=== PATIENT | female | born 1935 | race Caucasian/White ===

== ENCOUNTER 2016-12-24 13:19 | Inpatient (IN) | payer MEDICARE ==
[~2016-12-24] VITALS: Ht 149.9 cm; Wt 72.6 kg
[2016-12-24] MEDS ORDERED: ONDANSETRON PF 4 MG/2 ML VIAL. IV ONE (13:45)
[2016-12-24] MEDS ORDERED: KETOROLAC TROMETHAMINE 30 MG/ML INJ. IV ONE (13:45)
[2016-12-24] MEDS ORDERED: MORPHINE SULFATE 10 MG/ML VIAL. IV ONE (13:45)
[2016-12-24 14:03] LABS: BILIRUBIN,URINE NEGATIVE (NEG); GLUCOSE,URINE NEGATIVE (NEG); NITRITE,URINE NEGATIVE (NEG); PROTEIN,URINE NEGATIVE (NEG-TRACE); UROBILINOGEN,URINE 0.2 mg/dL (0.2 mg/dL)
--- NOTE | 2016-12-24 14:09 | PHYS DOC ---
Past Medical History Past Medical History: Other Past Surgical History: Hysterectomy Alcohol Use: None Drug Use: None Adult General Chief Complaint Chief Complaint: ABDOMINAL PAIN HPI HPI Patient is a 81 year old female presenting to the emergency department for evaluation of right flank pain radiating to right lower abdomen that started this morning and has caused her to vomit once. She is in severe pain and says she has never had kidney stones in the past but she does appear uncomfortable like a kidney stone. No fevers chills diarrhea constipation dysuria or hematuria. She thinks her urine is slightly cloudy. Review of Systems Review of Systems Constitutional: Denies fever or chills [] Eyes: Denies change in visual acuity, redness, or eye pain [] HENT: Denies nasal congestion or sore throat [] Respiratory: Denies cough or shortness of breath [] Cardiovascular: No additional information not addressed in HPI [] GI: + abdominal pain, nausea, vomiting. No bloody stools or diarrhea [] : Denies dysuria or hematuria [] Musculoskeletal: + back pain. No joint pain [] Integument: Denies rash or skin lesions [] Neurologic: Denies headache, focal weakness or sensory changes [] Current Medications Current Medications Current Medications Medications (Trade) Dose Ordered Sig/Nickie Start Time Stop Time Status Last Admin Dose Admin Ketorolac Tromethamine (Toradol) 15 mg 1X ONCE 12/24/16 13:45 12/24/16 13:55 DC 12/24/16 14:06 15 MG Morphine Sulfate 5 mg 1X ONCE 12/24/16 13:45 12/24/16 13:55 DC 12/24/16 14:05 5 MG Ondansetron HCl (Zofran) 8 mg 1X ONCE 12/24/16 13:45 12/24/16 13:55 DC 12/24/16 14:06 8 MG Allergies Allergies Allergies Coded Allergies Type Severity Reaction Last Updated Verified No Known Drug Allergies 12/24/16 No Physical Exam Physical Exam Constitutional: Well developed, well nourished, no acute distress, non-toxic appearance. [] HENT: Normocephalic, atraumatic, bilateral external ears normal, oropharynx moist, no oral exudates, nose normal. [] Eyes: PERRLA, EOMI, conjunctiva normal, no discharge. [] Neck: Normal range of motion, no tenderness, supple, no stridor. [] Cardiovascular:Heart rate regular rhythm, no murmur [] Lungs & Thorax: Bilateral breath sounds clear to auscultation [] Abdomen: Bowel sounds normal, soft, no tenderness, no masses, no pulsatile masses. [] Skin: Warm, dry, no erythema, no rash. [] Back: No tenderness, + R CVA tenderness. [] Extremities: No tenderness, no cyanosis, no clubbing, ROM intact, no edema. [] Neurologic: Alert and oriented X 3, normal motor function, normal sensory function, no focal deficits noted. [] Current Patient Data Vital Signs Vital Signs Date Time Temp Pulse Resp B/P (MAP) Pulse Ox O2 Delivery O2 Flow Rate FiO2 12/24/16 14:19 77 19 162/73 (102) 95 Room Air 12/24/16 13:47 98.4 98.4 Lab Values Laboratory Tests Test 12/24/16 13:45 12/24/16 14:15 Urine Color Yellow Urine Clarity Clear Urine pH 8.0 Urine Specific Starr 1.010 Urine Protein Negative mg/dL (NEG-TRACE) Urine Glucose (UA) Negative mg/dL (NEG) Urine Ketones (Stick) Negative mg/dL (NEG) Urine Blood Large (NEG) Urine Nitrite Negative (NEG) Urine Bilirubin Negative (NEG) Urine Urobilinogen Dipstick 0.2 mg/dL (0.2 mg/dL) Urine Leukocyte Esterase Large (NEG) Urine RBC 11-20 /HPF (0-2) Urine WBC 5-10 /HPF (0-4) Urine Squamous Epithelial Cells Occ /LPF Urine Bacteria Few /HPF (0-FEW) White Blood Count 4.4 x10^3/uL (4.0-11.0) Red Blood Count 4.96 x10^6/uL (3.50-5.40) Hemoglobin 15.0 g/dL (12.0-15.5) Hematocrit 43.0 % (36.0-47.0) Mean Corpuscular Volume 87 fL (79-100) Mean Corpuscular Hemoglobin 30 pg (25-35) Mean Corpuscular Hemoglobin Concent 35 g/dL (31-37) Red Cell Distribution Width 13.7 % (11.5-14.5) Platelet Count 151 x10^3/uL (140-400) Neutrophils (%) (Auto) 87 % (31-73) H Lymphocytes (%) (Auto) 9 % (24-48) L Monocytes (%) (Auto) 2 % (0-9) Eosinophils (%) (Auto) 2 % (0-3) Basophils (%) (Auto) 1 % (0-3) Neutrophils # (Auto) 3.8 x10^3uL (1.8-7.7) Lymphocytes # (Auto) 0.4 x10^3/uL (1.0-4.8) L Monocytes # (Auto) 0.1 x10^3/uL (0.0-1.1) Eosinophils # (Auto) 0.1 x10^3/uL (0.0-0.7) Basophils # (Auto) 0.0 x10^3/uL (0.0-0.2) Prothrombin Time 14.2 SEC (11.7-14.0) H Prothrombin Time INR 1.2 (0.8-1.1) H PTT 28 SEC (24-38) Sodium Level 138 mmol/L (136-145) Potassium Level 3.4 mmol/L (3.5-5.1) L Chloride Level 99 mmol/L (98-107) Carbon Dioxide Level 33 mmol/L (21-32) H Anion Gap 6 (6-14) Blood Urea Nitrogen 20 mg/dL (7-20) Creatinine 1.0 mg/dL (0.6-1.0) Estimated GFR (Cockcroft-Gault) 53.2 BUN/Creatinine Ratio 20 (6-20) Glucose Level 156 mg/dL (70-99) H Calcium Level 9.4 mg/dL (8.5-10.1) Magnesium Level 1.6 mg/dL (1.8-2.4) L Total Bilirubin 0.7 mg/dL (0.2-1.0) Aspartate Amino Transferase (AST) 21 U/L (15-37) Alanine Aminotransferase (ALT) 22 U/L (14-59) Alkaline Phosphatase 54 U/L (46-116) Total Protein 7.5 g/dL (6.4-8.2) Albumin 3.5 g/dL (3.4-5.0) Albumin/Globulin Ratio 0.9 (1.0-1.7) L Lipase 83 U/L (73-393) Laboratory Tests 12/24/16 14:15 Laboratory Tests 12/24/16 14:15 EKG EKG [] Radiology/Procedures Radiology/Procedures Examination: CT of the abdomen pelvis without contrast History: History of right flank pain Comparison: None available Technique: Axial CT images of the abdomen pelvis were performed without contrast. Coronal and sagittal reformats are performed. PQRS Compliance Statement: One or more of the following individualized dose reduction techniques were utilized for this examination: 1. Automated exposure control 2. Adjustment of the mA and/or kV according to patient size 3. Use of iterative reconstruction technique Findings: Small subpleural pulmonary nodules identified in the right middle lobe measuring up to 4 mm. There is a small subpleural nodule identified in the right lower lobe of the lung measuring 4 mm. Minimal bibasal lung atelectasis is identified. Small hiatal hernia is identified. No evidence of free air identified in the abdomen. The evaluation of the solid organs is limited due to lack of IV contrast. The evaluation of the bowel is limited lack of oral contrast. The visualized noncontrasted liver, spleen, adrenals grossly appears unremarkable. The gallbladder is mildly distended. Small gallstones identified within the gallbladder. The pancreas demonstrates mild fatty atrophic changes. There is minimal low density identified in the head of the pancreas probably atrophic changes cyst or cystic lesion, however evaluation is limited without IV contrast. Intrarenal collecting system calculi identified in the left kidney with the largest measuring 8 mm. Intrarenal collecting system calculus identified in the right kidney measuring 4 mm. Moderate right-sided hydronephrosis identified with mild hydroureter on the right. There is a 4 mm calculus identified in the distal right ureter best seen on series 2 image #166. The urinary bladder is mildly distended. There is mild prominence of right adnexa. The small bowel is nondilated. Feces and gas noted in the colon. Multiple colonic diverticula identified. The caliber of the aorta grossly appears unremarkable. Moderate degenerative changes throughout the lumbar spine. There is a small umbilical hernia containing loop of small bowel. Impression: 1. Moderate right-sided hydronephrosis and mild hydroureter identified with a 4 mm calculus identified in the distal right ureter. There is inflammatory fat stranding identified about the right renal pelvis likely due to back pressure or pyelonephritis. 2. Gallstones identified within the gallbladder. There is some hypodensity identified in the head of the pancreas probably atrophic changes however evaluation is limited without IV contrast underlying cyst or cystic lesion is not completely excluded. Follow-up nonemergent ultrasound can be considered. 3. Mild prominent appearing right adnexa. 4. Small umbilical hernia identified containing loop of small bowel. . DICTATED and SIGNED BY: LILLY INGRAM MD DATE: 12/24/16 1412 Course & Med Decision Making Course & Med Decision Making Patient's pain much improved after initial treatment however she is still having some pain and is very uncomfortable going home she is afraid she'll get dizzy and fall or she will be able to control her pain. The urologist return from their conference tomorrow. I do not think that she will need intervention at this point however will admit for pain control for now. Dragon Disclaimer Dragon Disclaimer This electronic medical record was generated, in whole or in part, using a voice recognition dictation system. Departure Departure Impression: Primary Impression: Right ureteral stone Additional Impression: Intractable pain Disposition: ADMITTED INPATIENT Admitting Physician: Other (REUSCH) Condition: STABLE Referrals: NOAH GLOVER Jr, MD (PCP) Problem Qualifiers EBENEZER WHYTE DO December 24, 2016 14:09
[2016-12-24 14:19] LABS: BACTERIA,URINE FEW /HPF (0-FEW); SQUAMOUS EPITHELIAL CELL,UR OCC /LPF
--- NOTE | 2016-12-24 14:25 | RAD ---
Examination: CT of the abdomen pelvis without contrast History: History of right flank pain Comparison: None available Technique: Axial CT images of the abdomen pelvis were performed without contrast. Coronal and sagittal reformats are performed. PQRS Compliance Statement: One or more of the following individualized dose reduction techniques were utilized for this examination: 1. Automated exposure control 2. Adjustment of the mA and/or kV according to patient size 3. Use of iterative reconstruction technique Findings: Small subpleural pulmonary nodules identified in the right middle lobe measuring up to 4 mm. There is a small subpleural nodule identified in the right lower lobe of the lung measuring 4 mm. Minimal bibasal lung atelectasis is identified. Small hiatal hernia is identified. No evidence of free air identified in the abdomen. The evaluation of the solid organs is limited due to lack of IV contrast. The evaluation of the bowel is limited lack of oral contrast. The visualized noncontrasted liver, spleen, adrenals grossly appears unremarkable. The gallbladder is mildly distended. Small gallstones identified within the gallbladder. The pancreas demonstrates mild fatty atrophic changes. There is minimal low density identified in the head of the pancreas probably atrophic changes cyst or cystic lesion, however evaluation is limited without IV contrast. Intrarenal collecting system calculi identified in the left kidney with the largest measuring 8 mm. Intrarenal collecting system calculus identified in the right kidney measuring 4 mm. Moderate right-sided hydronephrosis identified with mild hydroureter on the right. There is a 4 mm calculus identified in the distal right ureter best seen on series 2 image #166. The urinary bladder is mildly distended. There is mild prominence of right adnexa. The small bowel is nondilated. Feces and gas noted in the colon. Multiple colonic diverticula identified. The caliber of the aorta grossly appears unremarkable. Moderate degenerative changes throughout the lumbar spine. There is a small umbilical hernia containing loop of small bowel. Impression: 1. Moderate right-sided hydronephrosis and mild hydroureter identified with a 4 mm calculus identified in the distal right ureter. There is inflammatory fat stranding identified about the right renal pelvis likely due to back pressure or pyelonephritis. 2. Gallstones identified within the gallbladder. There is some hypodensity identified in the head of the pancreas probably atrophic changes however evaluation is limited without IV contrast underlying cyst or cystic lesion is not completely excluded. Follow-up nonemergent ultrasound can be considered. 3. Mild prominent appearing right adnexa. 4. Small umbilical hernia identified containing loop of small bowel. .
[2016-12-24 14:30] LABS: CALCIUM 9.4 mg/dL (8.5-10.1); GFR 53.2; POTASSIUM 3.4 mmol/L (3.5-5.1)
[2016-12-24 14:32] LABS: BASO % 1 % (0-3); EOS % 2 % (0-3); INR 1.2 (0.8-1.1); LYMPH # 0.4 x10^3/uL (1.0-4.8); LYMPH % 9 % (24-48); MEAN CORPUSCULAR HEMOGLOBIN 30 pg (25-35); MEAN CORPUSCULAR HGB CONC 35 g/dL (31-37); MEAN CORPUSCULAR VOLUME 87 fL (79-100); MONO % 2 % (0-9); NEUT % 87 % (31-73); PLATELET COUNT 151 x10^3/uL (140-400); PROTHROMBIN TIME PATIENT 14.2 SEC (11.7-14.0); RED BLOOD COUNT 4.96 x10^6/uL (3.50-5.40); RED CELL DISTRIBUTION WIDTH 13.7 % (11.5-14.5); WHITE BLOOD COUNT 4.4 x10^3/uL (4.0-11.0)
[2016-12-24 14:36] LABS: ALBUMIN 3.5 g/dL (3.4-5.0); ALBUMIN/GLOBULIN RATIO 0.9 (1.0-1.7); MAGNESIUM 1.6 mg/dL (1.8-2.4); TOTAL BILIRUBIN 0.7 mg/dL (0.2-1.0); TOTAL PROTEIN 7.5 g/dL (6.4-8.2)
[2016-12-24] MEDS ORDERED: ONDANSETRON PF 4 MG/2 ML VIAL. IV PRN (15:00)
[2016-12-24] MEDS ORDERED: fentaNYL PF VIAL 100 MCG/2 ML VIAL IV PRN (15:00)
--- NOTE | 2016-12-24 16:56 | PDOC ---
PROGRESS NOTES Subjective Subjective Pt. with 4 mm right distal stone Objective Objective Vital Signs Date Time Temp Pulse Resp B/P (MAP) Pulse Ox O2 Delivery O2 Flow Rate FiO2 12/24/16 16:02 80 19 116/60 (78) 95 Nasal Cannula 2.0 12/24/16 13:47 98.4 98.4 Physical Exam Physical Exam flomax abs strain urine Plan Plan of Care 4 mm right distal stone flomax, abs, strain urine Possible intervention tomorrow if pain recurrs significantly Problems Medical Problems: (1) Intractable pain Status: Acute (2) Right ureteral stone Status: Acute Comment Review of Relevant I have reviewed the following items jewell (where applicable) has been applied. Labs Laboratory Tests Test 12/24/16 13:45 12/24/16 14:15 Urine Color Yellow Urine Clarity Clear Urine pH 8.0 Urine Specific Gile 1.010 Urine Protein Negative mg/dL (NEG-TRACE) Urine Glucose (UA) Negative mg/dL (NEG) Urine Ketones (Stick) Negative mg/dL (NEG) Urine Blood Large (NEG) Urine Nitrite Negative (NEG) Urine Bilirubin Negative (NEG) Urine Urobilinogen Dipstick 0.2 mg/dL (0.2 mg/dL) Urine Leukocyte Esterase Large (NEG) Urine RBC 11-20 /HPF (0-2) Urine WBC 5-10 /HPF (0-4) Urine Squamous Epithelial Cells Occ /LPF Urine Bacteria Few /HPF (0-FEW) White Blood Count 4.4 x10^3/uL (4.0-11.0) Red Blood Count 4.96 x10^6/uL (3.50-5.40) Hemoglobin 15.0 g/dL (12.0-15.5) Hematocrit 43.0 % (36.0-47.0) Mean Corpuscular Volume 87 fL (79-100) Mean Corpuscular Hemoglobin 30 pg (25-35) Mean Corpuscular Hemoglobin Concent 35 g/dL (31-37) Red Cell Distribution Width 13.7 % (11.5-14.5) Platelet Count 151 x10^3/uL (140-400) Neutrophils (%) (Auto) 87 % (31-73) Lymphocytes (%) (Auto) 9 % (24-48) Monocytes (%) (Auto) 2 % (0-9) Eosinophils (%) (Auto) 2 % (0-3) Basophils (%) (Auto) 1 % (0-3) Neutrophils # (Auto) 3.8 x10^3uL (1.8-7.7) Lymphocytes # (Auto) 0.4 x10^3/uL (1.0-4.8) Monocytes # (Auto) 0.1 x10^3/uL (0.0-1.1) Eosinophils # (Auto) 0.1 x10^3/uL (0.0-0.7) Basophils # (Auto) 0.0 x10^3/uL (0.0-0.2) Prothrombin Time 14.2 SEC (11.7-14.0) Prothromb Time International Ratio 1.2 (0.8-1.1) Activated Partial Thromboplast Time 28 SEC (24-38) Sodium Level 138 mmol/L (136-145) Potassium Level 3.4 mmol/L (3.5-5.1) Chloride Level 99 mmol/L (98-107) Carbon Dioxide Level 33 mmol/L (21-32) Anion Gap 6 (6-14) Blood Urea Nitrogen 20 mg/dL (7-20) Creatinine 1.0 mg/dL (0.6-1.0) Estimated GFR (Cockcroft-Gault) 53.2 BUN/Creatinine Ratio 20 (6-20) Glucose Level 156 mg/dL (70-99) Calcium Level 9.4 mg/dL (8.5-10.1) Magnesium Level 1.6 mg/dL (1.8-2.4) Total Bilirubin 0.7 mg/dL (0.2-1.0) Aspartate Amino Transf (AST/SGOT) 21 U/L (15-37) Alanine Aminotransferase (ALT/SGPT) 22 U/L (14-59) Alkaline Phosphatase 54 U/L (46-116) Total Protein 7.5 g/dL (6.4-8.2) Albumin 3.5 g/dL (3.4-5.0) Albumin/Globulin Ratio 0.9 (1.0-1.7) Lipase 83 U/L (73-393) Laboratory Tests Test 12/24/16 13:45 12/24/16 14:15 Urine Color Yellow Urine Clarity Clear Urine pH 8.0 Urine Specific Gile 1.010 Urine Protein Negative mg/dL (NEG-TRACE) Urine Glucose (UA) Negative mg/dL (NEG) Urine Ketones (Stick) Negative mg/dL (NEG) Urine Blood Large (NEG) Urine Nitrite Negative (NEG) Urine Bilirubin Negative (NEG) Urine Urobilinogen Dipstick 0.2 mg/dL (0.2 mg/dL) Urine Leukocyte Esterase Large (NEG) Urine RBC 11-20 /HPF (0-2) Urine WBC 5-10 /HPF (0-4) Urine Squamous Epithelial Cells Occ /LPF Urine Bacteria Few /HPF (0-FEW) White Blood Count 4.4 x10^3/uL (4.0-11.0) Red Blood Count 4.96 x10^6/uL (3.50-5.40) Hemoglobin 15.0 g/dL (12.0-15.5) Hematocrit 43.0 % (36.0-47.0) Mean Corpuscular Volume 87 fL (79-100) Mean Corpuscular Hemoglobin 30 pg (25-35) Mean Corpuscular Hemoglobin Concent 35 g/dL (31-37) Red Cell Distribution Width 13.7 % (11.5-14.5) Platelet Count 151 x10^3/uL (140-400) Neutrophils (%) (Auto) 87 % (31-73) Lymphocytes (%) (Auto) 9 % (24-48) Monocytes (%) (Auto) 2 % (0-9) Eosinophils (%) (Auto) 2 % (0-3) Basophils (%) (Auto) 1 % (0-3) Neutrophils # (Auto) 3.8 x10^3uL (1.8-7.7) Lymphocytes # (Auto) 0.4 x10^3/uL (1.0-4.8) Monocytes # (Auto) 0.1 x10^3/uL (0.0-1.1) Eosinophils # (Auto) 0.1 x10^3/uL (0.0-0.7) Basophils # (Auto) 0.0 x10^3/uL (0.0-0.2) Prothrombin Time 14.2 SEC (11.7-14.0) Prothromb Time International Ratio 1.2 (0.8-1.1) Activated Partial Thromboplast Time 28 SEC (24-38) Sodium Level 138 mmol/L (136-145) Potassium Level 3.4 mmol/L (3.5-5.1) Chloride Level 99 mmol/L (98-107) Carbon Dioxide Level 33 mmol/L (21-32) Anion Gap 6 (6-14) Blood Urea Nitrogen 20 mg/dL (7-20) Creatinine 1.0 mg/dL (0.6-1.0) Estimated GFR (Cockcroft-Gault) 53.2 BUN/Creatinine Ratio 20 (6-20) Glucose Level 156 mg/dL (70-99) Calcium Level 9.4 mg/dL (8.5-10.1) Magnesium Level 1.6 mg/dL (1.8-2.4) Total Bilirubin 0.7 mg/dL (0.2-1.0) Aspartate Amino Transf (AST/SGOT) 21 U/L (15-37) Alanine Aminotransferase (ALT/SGPT) 22 U/L (14-59) Alkaline Phosphatase 54 U/L (46-116) Total Protein 7.5 g/dL (6.4-8.2) Albumin 3.5 g/dL (3.4-5.0) Albumin/Globulin Ratio 0.9 (1.0-1.7) Lipase 83 U/L (73-393) Medications Current Medications Ondansetron HCl (Zofran) 8 mg 1X ONCE IV Last administered on 12/24/16 14:06 ; Start 12/24/16 at 13:45; Stop 12/24/16 at 13:55; Status DC Morphine Sulfate 5 mg 1X ONCE IV Last administered on 12/24/16 14:05; Start 12/24/16 at 13:45; Stop 12/24/16 at 13:55; Status DC Ketorolac Tromethamine (Toradol) 15 mg 1X ONCE IV Last administered on 14:06; Start 12/24/16 at 13:45; Stop 12/24/16 at 13:55; Status DC Ondansetron HCl (Zofran) 4 mg PRN Q8HRS PRN IV NAUSEA/VOMITING; Start 12/24/16 at 15:00; Stop 12/25/16 at 14:59 Fentanyl Citrate (Fentanyl 2ml Vial) 50 mcg PRN Q2HR PRN IV PAIN; Start at 15:00; Stop 12/25/16 at 14:59 Ceftriaxone Sodium 1 gm/ Sodium Chloride 50 ml @ 100 mls/hr Q24H IV ; Start at 15:00 Ceftriaxone Sodium 50 ml @ 100 mls/hr 1X ONCE IV Last administered on t 15:15; Start 12/24/16 at 15:00; Stop 12/24/16 at 15:29; Status DC Vitals/I & O Vital Sign - Last 24 Hours 12/24/16 12/24/16 12/24/16 12/24/16 13:47 14:05 14:19 15:12 Temp 98.4 98.4 Pulse 81 77 Resp 17 19 19 19 B/P (MAP) 148/90 (109) 162/73 (102) 118/63 (81) Pulse Ox 98 94 95 94 O2 Delivery Room Air Room Air Room Air Nasal Cannula O2 Flow Rate 2.0 12/24/16 16:02 Pulse 80 Resp 19 B/P (MAP) 116/60 (78) Pulse Ox 95 O2 Delivery Nasal Cannula O2 Flow Rate 2.0 ISABELLA HAMMOND MD December 24, 2016 16:56
[2016-12-24] MEDS: TAMSULOSIN 0.4 MG CAP.ER.24H. PO SCH (17:09)
[2016-12-24 17:30] VITALS: BP 100/43
[2016-12-24 17:47] VITALS: BP 100/43
[2016-12-24 18:01] VITALS: BP 100/43
[2016-12-24] MEDS ORDERED: METF500T4 PO (18:52)
[2016-12-24] MEDS ORDERED: CARV12.52 PO (18:58)
[2016-12-24] MEDS ORDERED: PRAV40TA2 PO (18:58)
[2016-12-24] MEDS ORDERED: ASPI81TA2 PO (18:58)
[2016-12-24] MEDS ORDERED: AMLO5TAB2 PO (18:58)
[2016-12-24] MEDS ORDERED: LOSA1TAB17 PO (18:58)
[2016-12-24 19:54] VITALS: BP 107/46
[2016-12-24] MEDS ORDERED: MORPHINE SULFATE 2 MG/ML DISP.SYRIN. IV PRN (20:00)
[2016-12-24] MEDS: CARVEDILOL 12.5 MG TABLET. PO SCH (20:24)
[2016-12-24] MEDS: ATORVASTATIN CALCIUM 10 MG TABLET. PO SCH (20:25)
--- NOTE | 2016-12-24 21:29 | HP ---
ADMIT DATE: 12/24/2016 CHIEF COMPLAINT: Flank pain. HISTORY OF PRESENT ILLNESS: The patient is an 81-year-old woman who presented to the Emergency Room with right flank pain. She relates that this pain actually started earlier this morning at about 11 o'clock all of a sudden, never had a pain like this before. She, however, relates that she actually had anterior pelvic/groin pains bilaterally in the past couple of weeks for which she saw her PCP and was told that she may have diverticulitis and if pain got worse, she should present to the Emergency Room. On further questioning, the patient denies having noticed any hematuria, but pain early in the morning was so bad that she actually vomited. She denies any fevers, chills, or other symptoms. PAST MEDICAL HISTORY: Diabetes, hypertension, hyperlipidemia. FAMILY HISTORY: No history of urinary stones. SOCIAL HISTORY: She is . No toxic habits. She lives by herself. ALLERGIES: No known drug allergies. MEDICATIONS: MAR reconciled with home medications. REVIEW OF SYSTEMS: Essentially only positive for flank pain, which now is much improved. Rest of organ system review is benign. PHYSICAL EXAMINATION: VITAL SIGNS: From today show a blood pressure of 100/43, heart rate of 85, respiratory rate of 16. She is afebrile. GENERAL: This is an 81-year-old obese, but frail appearing woman, alert and oriented, in no acute distress. HEENT: Shows no scleral icterus. NECK: Supple. LUNGS: Clear bilaterally. HEART: Regular rate and rhythm. ABDOMEN: Has positive bowel sounds, soft, nontender, no tenderness in the flank to palpation or auscultation. BACK: Appears kyphotic. EXTREMITIES: Show no edema. SKIN: Warm, soft and dry without any rash. LABORATORY DATA: CBC with a WBC of 4.4, hemoglobin 15, platelets of 151. Chemistries with a BUN and creatinine of 20 and 1, potassium of 3.4, glucose at 156, magnesium 1.6. Urine with 11-20 wbc and 5-10 rbc. IMAGING DATA: CT of the abdomen and pelvis reveals intrarenal collecting system calculus identified in the right kidney measuring about 4 mm, moderate right-sided hydronephrosis identified with mild hydroureter on the right, 4-mm calculus in the distal right ureter. ASSESSMENT AND PLAN: The patient is an 81-year-old with an obstructing 4-mm stone in the right distal ureter. Her symptoms now have significantly improved and hopefully the stone actually has passed on its own. Dr. Alexandra from Urology has been consulted. We will observe her overnight. Start her on IV fluids. A MAC will have to be replaced. For her diabetes, we will continue home medications and insulin sliding scale. Blood pressure currently is well controlled as well. We will continue home regimen. Hold Lovenox/heparin for deep vein thrombosis prophylaxis for now, SCDs should be sufficient. ESTEFANY CH MD DR: MARY/nts JOB#: [id number] / [id number] CHRIS
--- NOTE | 2016-12-24 21:56 | ACF ---
Admission Forms Criteria RENAL COLIC AND KIDNEY STONES Clinical Indications for Admission to Inpatient Care ( Place 'X' for any and all applicable criteria): Admission is indicated for ANY ONE of the following (1)(2)(3)(4): [X ]I. Inpatient admission required rather than observation care (Also use Renal Colic and Kidney Stones: Observation Care Criteria as appropriate) because of ANY ONE of the following: [X ]a) Severe pain requiring acute inpatient management [ ]b) Urinary tract infection identified [ ]c) Vomiting that is severe or persistent [ ]d) IV fluid required rather than oral rehydration to replace significant ongoing (eg, for greater than 24 hours) losses (greater than 200 mL/hr or 3 L/m2 per day) [ ]e) Percutaneous or open drainage (eg, abscess, biliary tract) procedures [ ]f) Other condition, treatment or monitoring requiring inpatient admission [ ]II. Impending acute renal failure [ ]III. Bilateral obstruction [ ]IV. Single kidney with obstruction [ ]V. Transplanted kidney with obstruction [ ]. Possible open surgical procedure needed (eg, pyonephrosis, stone removal not amendable to other means) [ ]VII. Hemodynamic instability Extended stay beyond goal length of stay may be needed for(2)(3)(31): [ ]a) Failed initial stone removal (32) [ ]b) Pyonephrosis [ ]c) Obstructive uropathy with urinary tract infection [ ]d) Procedure complications [ ]e) Comorbidities (22) The original [facility] content created by [employer] has been revised. The portions of the content which have been revised are identified through the use of italic text or in bold, and [facility] has neither reviewed nor approved the modified material. All other unmodified content is copyright [facility]. Please see references footnoted in the original [facility] [employer] edition 2016 Admission Criteria Met?: Yes CARLOS BERNARD December 24, 2016 21:56
[2016-12-24 23:35] VITALS: BP 111/83
[2016-12-25] VITALS (13 sets, daily range): BP systolic 82–124; BP diastolic 37–59
[2016-12-25 04:24] LABS: BASO % 0 % (0-3); EOS % 0 % (0-3); HEMATOCRIT 39.5 % (36.0-47.0); HEMOGLOBIN 13.5 g/dL (12.0-15.5); LYMPH # 0.6 x10^3/uL (1.0-4.8); LYMPH % 2 % (24-48); MEAN CORPUSCULAR HEMOGLOBIN 30 pg (25-35); MEAN CORPUSCULAR HGB CONC 34 g/dL (31-37); MEAN CORPUSCULAR VOLUME 87 fL (79-100); MONO % 7 % (0-9); NEUT % 90 % (31-73); PLATELET COUNT 99 x10^3/uL (140-400); RED BLOOD COUNT 4.53 x10^6/uL (3.50-5.40); RED CELL DISTRIBUTION WIDTH 13.7 % (11.5-14.5); WHITE BLOOD COUNT 24.8 x10^3/uL (4.0-11.0)
[2016-12-25 04:50] LABS: CALCIUM 9.6 mg/dL (8.5-10.1); CREATININE 1.7 mg/dL (0.6-1.0); GFR 28.8; POTASSIUM 3.4 mmol/L (3.5-5.1)
[2016-12-25 06:06] LABS: PLT ESTIMATE DECREASED (ADEQUATE)
[2016-12-25] MEDS ORDERED: IOHEXOL 300 MG/ML 50 ML VIAL. ONE (06:36)
[2016-12-25] MEDS ORDERED: LIDOCAINE 2% JELLY 6ML IN APPLICATOR. ONE (06:36)
[2016-12-25] MEDS ORDERED: fentaNYL PF VIAL 100 MCG/2 ML VIAL IV PRN ×2 (07:00)
[2016-12-25] MEDS ORDERED: HYDROmorphone 2 MG/ML VIAL IV PRN (07:00)
[2016-12-25] MEDS ORDERED: LIDOCAINE 1% 1 ML SYRINGE. ID PRN (07:00)
[2016-12-25] MEDS ORDERED: MORPHINE SULFATE 2 MG/ML DISP.SYRIN. IV PRN (07:00)
[2016-12-25] MEDS ORDERED: IV RINGERS,LACTATED 1000ML 1,000 ML IV SCH (07:00)
[2016-12-25] MEDS ORDERED: ONDANSETRON PF 4 MG/2 ML VIAL. IV PRN (07:00)
[2016-12-25] MEDS ORDERED: PROCHLORPERAZINE 10 MG/2 ML VIAL. IV PRN (07:00)
[2016-12-25] MEDS: metFORMIN 500 MG TABLET PO SCH ×2 (08:00→17:13)
[2016-12-25] MEDS: CARVEDILOL 12.5 MG TABLET. PO SCH ×2 (08:00→17:00)
--- NOTE | 2016-12-25 08:40 | CONS ---
DATE OF CONSULTATION: 12/24/2016 The patient's room will be in 658. HISTORY OF PRESENT ILLNESS: The patient is a very pleasant 81-year-old white female who had onset of right flank abdominal pain this morning at 11:00 a.m. The patient was seen in the Emergency Room, found to have a 4 mm right distal ureteral stone with some hydronephrosis. The patient with no prior history of any stones. The patient's white count is 4.4, creatinine is 1.0. Urine showed 11-20 red cells, 5-10 white cells, few bacteria, nitrite negative. The patient is afebrile. Vital signs stable. PAST MEDICAL HISTORY: Significant for asthma, hypertension, diabetes. The patient had prior shoulder replacement, hysterectomy and back surgery in the past. On physical exam, the patient with some right-sided flank and abdominal tenderness, although it is much less than before. No left-sided abdominal pain or left-sided CVA tenderness. I talked with the patient concerning her 4 mm right distal ureteral stone. We talked about the options, alternatives, benefits, risks and possible complications of medical expulsive therapy versus surgical intervention with cystoscopy, right retrograde pyelogram, right ureteral stent placement. The patient is feeling better now and she is going to be admitted to the medicine service for observation. Recommend strains her urine, Flomax, antibiotics. She was ____ started on Rocephin and then get a KUB on her first thing in the morning, tomorrow morning and then keep her n.p.o. past midnight on the possibility, she wishes to proceed with surgical intervention with cystoscopy, right retrograde pyelogram, and right ureteral stent placement. I certainly appreciate being allowed to participate in this patient's care. ISABELLA HAMMOND MD DR: HUMBERTO/radha JOB#: [id number] / [id number]
[2016-12-25] MEDS ORDERED: IV DEXTROSE 5%-LACT RINGERS 1,000 ML IV SCH (08:45)
--- NOTE | 2016-12-25 08:46 | PDOC ---
PROGRESS NOTES Subjective Subjective Pt. with no pain this morning Objective Objective Vital Signs Date Time Temp Pulse Resp B/P (MAP) Pulse Ox O2 Delivery O2 Flow Rate FiO2 12/25/16 08:00 81 95/47 12/25/16 07:12 98.9 16 97 Nasal Cannula 2.5 98.9 Intake and Output 12/25/16 07:00 Intake Total 100 ml Balance 100 ml Intake Oral 50 ml IV Total 50 ml # Voids 2 Physical Exam Physical Exam abd soft, no-tender WBC-24.8 Cr. 1.7 Plan Plan of Care I discussed with the pt. her elevated WBC and elevated Cr. Pt. on rocephin I discussed with the pt. the options, alternatives, benefits, risks, and possible complications of observation vs. intervention with cystoscopy, right retrograde pyelogram and possible right ureteral stent placement. Pt. understands and wishes to proceed with operation. Will proceed accordingly. Problems Medical Problems: (1) Intractable pain Status: Acute (2) Right ureteral stone Status: Acute Comment Review of Relevant I have reviewed the following items jewlel (where applicable) has been applied. Labs Laboratory Tests Test 12/24/16 13:45 12/24/16 14:15 12/25/16 03:45 Urine Color Yellow Urine Clarity Clear Urine pH 8.0 Urine Specific [place] 1.010 Urine Protein Negative mg/dL (NEG-TRACE) Urine Glucose (UA) Negative mg/dL (NEG) Urine Ketones (Stick) Negative mg/dL (NEG) Urine Blood Large (NEG) Urine Nitrite Negative (NEG) Urine Bilirubin Negative (NEG) Urine Urobilinogen Dipstick 0.2 mg/dL (0.2 mg/dL) Urine Leukocyte Esterase Large (NEG) Urine RBC 11-20 /HPF (0-2) Urine WBC 5-10 /HPF (0-4) Urine Squamous Epithelial Cells Occ /LPF Urine Bacteria Few /HPF (0-FEW) White Blood Count 4.4 x10^3/uL (4.0-11.0) 24.8 x10^3/uL (4.0-11.0) Red Blood Count 4.96 x10^6/uL (3.50-5.40) 4.53 x10^6/uL (3.50-5.40) Hemoglobin 15.0 g/dL (12.0-15.5) 13.5 g/dL (12.0-15.5) Hematocrit 43.0 % (36.0-47.0) 39.5 % (36.0-47.0) Mean Corpuscular Volume 87 fL (79-100) 87 fL (79-100) Mean Corpuscular Hemoglobin 30 pg (25-35) 30 pg (25-35) Mean Corpuscular Hemoglobin Concent 35 g/dL (31-37) 34 g/dL (31-37) Red Cell Distribution Width 13.7 % (11.5-14.5) 13.7 % (11.5-14.5) Platelet Count 151 x10^3/uL (140-400) 99 x10^3/uL (140-400) Neutrophils (%) (Auto) 87 % (31-73) 90 % (31-73) Lymphocytes (%) (Auto) 9 % (24-48) 2 % (24-48) Monocytes (%) (Auto) 2 % (0-9) 7 % (0-9) Eosinophils (%) (Auto) 2 % (0-3) 0 % (0-3) Basophils (%) (Auto) 1 % (0-3) 0 % (0-3) Neutrophils # (Auto) 3.8 x10^3uL (1.8-7.7) 22.3 x10^3uL (1.8-7.7) Lymphocytes # (Auto) 0.4 x10^3/uL (1.0-4.8) 0.6 x10^3/uL (1.0-4.8) Monocytes # (Auto) 0.1 x10^3/uL (0.0-1.1) 1.8 x10^3/uL (0.0-1.1) Eosinophils # (Auto) 0.1 x10^3/uL (0.0-0.7) 0.0 x10^3/uL (0.0-0.7) Basophils # (Auto) 0.0 x10^3/uL (0.0-0.2) 0.0 x10^3/uL (0.0-0.2) Prothrombin Time 14.2 SEC (11.7-14.0) Prothromb Time International Ratio 1.2 (0.8-1.1) Activated Partial Thromboplast Time 28 SEC (24-38) Sodium Level 138 mmol/L (136-145) 138 mmol/L (136-145) Potassium Level 3.4 mmol/L (3.5-5.1) 3.4 mmol/L (3.5-5.1) Chloride Level 99 mmol/L (98-107) 100 mmol/L (98-107) Carbon Dioxide Level 33 mmol/L (21-32) 28 mmol/L (21-32) Anion Gap 6 (6-14) 10 (6-14) Blood Urea Nitrogen 20 mg/dL (7-20) 34 mg/dL (7-20) Creatinine 1.0 mg/dL (0.6-1.0) 1.7 mg/dL (0.6-1.0) Estimated GFR (Cockcroft-Gault) 53.2 28.8 BUN/Creatinine Ratio 20 (6-20) Glucose Level 156 mg/dL (70-99) 166 mg/dL (70-99) Calcium Level 9.4 mg/dL (8.5-10.1) 9.6 mg/dL (8.5-10.1) Magnesium Level 1.6 mg/dL (1.8-2.4) Total Bilirubin 0.7 mg/dL (0.2-1.0) Aspartate Amino Transf (AST/SGOT) 21 U/L (15-37) Alanine Aminotransferase (ALT/SGPT) 22 U/L (14-59) Alkaline Phosphatase 54 U/L (46-116) Total Protein 7.5 g/dL (6.4-8.2) Albumin 3.5 g/dL (3.4-5.0) Albumin/Globulin Ratio 0.9 (1.0-1.7) Lipase 83 U/L (73-393) Segmented Neutrophils % 53 % (35-66) Band Neutrophils % 39 % (0-9) Lymphocytes % 1 % (24-48) Monocytes % 7 % (0-10) Platelet Estimate Decreased (ADEQUATE) Laboratory Tests Test 12/24/16 13:45 12/24/16 14:15 12/25/16 03:45 Urine Color Yellow Urine Clarity Clear Urine pH 8.0 Urine Specific [place] 1.010 Urine Protein Negative mg/dL (NEG-TRACE) Urine Glucose (UA) Negative mg/dL (NEG) Urine Ketones (Stick) Negative mg/dL (NEG) Urine Blood Large (NEG) Urine Nitrite Negative (NEG) Urine Bilirubin Negative (NEG) Urine Urobilinogen Dipstick 0.2 mg/dL (0.2 mg/dL) Urine Leukocyte Esterase Large (NEG) Urine RBC 11-20 /HPF (0-2) Urine WBC 5-10 /HPF (0-4) Urine Squamous Epithelial Cells Occ /LPF Urine Bacteria Few /HPF (0-FEW) White Blood Count 4.4 x10^3/uL (4.0-11.0) 24.8 x10^3/uL (4.0-11.0) Red Blood Count 4.96 x10^6/uL (3.50-5.40) 4.53 x10^6/uL (3.50-5.40) Hemoglobin 15.0 g/dL (12.0-15.5) 13.5 g/dL (12.0-15.5) Hematocrit 43.0 % (36.0-47.0) 39.5 % (36.0-47.0) Mean Corpuscular Volume 87 fL (79-100) 87 fL (79-100) Mean Corpuscular Hemoglobin 30 pg (25-35) 30 pg (25-35) Mean Corpuscular Hemoglobin Concent 35 g/dL (31-37) 34 g/dL (31-37) Red Cell Distribution Width 13.7 % (11.5-14.5) 13.7 % (11.5-14.5) Platelet Count 151 x10^3/uL (140-400) 99 x10^3/uL (140-400) Neutrophils (%) (Auto) 87 % (31-73) 90 % (31-73) Lymphocytes (%) (Auto) 9 % (24-48) 2 % (24-48) Monocytes (%) (Auto) 2 % (0-9) 7 % (0-9) Eosinophils (%) (Auto) 2 % (0-3) 0 % (0-3) Basophils (%) (Auto) 1 % (0-3) 0 % (0-3) Neutrophils # (Auto) 3.8 x10^3uL (1.8-7.7) 22.3 x10^3uL (1.8-7.7) Lymphocytes # (Auto) 0.4 x10^3/uL (1.0-4.8) 0.6 x10^3/uL (1.0-4.8) Monocytes # (Auto) 0.1 x10^3/uL (0.0-1.1) 1.8 x10^3/uL (0.0-1.1) Eosinophils # (Auto) 0.1 x10^3/uL (0.0-0.7) 0.0 x10^3/uL (0.0-0.7) Basophils # (Auto) 0.0 x10^3/uL (0.0-0.2) 0.0 x10^3/uL (0.0-0.2) Prothrombin Time 14.2 SEC (11.7-14.0) Prothromb Time International Ratio 1.2 (0.8-1.1) Activated Partial Thromboplast Time 28 SEC (24-38) Sodium Level 138 mmol/L (136-145) 138 mmol/L (136-145) Potassium Level 3.4 mmol/L (3.5-5.1) 3.4 mmol/L (3.5-5.1) Chloride Level 99 mmol/L (98-107) 100 mmol/L (98-107) Carbon Dioxide Level 33 mmol/L (21-32) 28 mmol/L (21-32) Anion Gap 6 (6-14) 10 (6-14) Blood Urea Nitrogen 20 mg/dL (7-20) 34 mg/dL (7-20) Creatinine 1.0 mg/dL (0.6-1.0) 1.7 mg/dL (0.6-1.0) Estimated GFR (Cockcroft-Gault) 53.2 28.8 BUN/Creatinine Ratio 20 (6-20) Glucose Level 156 mg/dL (70-99) 166 mg/dL (70-99) Calcium Level 9.4 mg/dL (8.5-10.1) 9.6 mg/dL (8.5-10.1) Magnesium Level 1.6 mg/dL (1.8-2.4) Total Bilirubin 0.7 mg/dL (0.2-1.0) Aspartate Amino Transf (AST/SGOT) 21 U/L (15-37) Alanine Aminotransferase (ALT/SGPT) 22 U/L (14-59) Alkaline Phosphatase 54 U/L (46-116) Total Protein 7.5 g/dL (6.4-8.2) Albumin 3.5 g/dL (3.4-5.0) Albumin/Globulin Ratio 0.9 (1.0-1.7) Lipase 83 U/L (73-393) Segmented Neutrophils % 53 % (35-66) Band Neutrophils % 39 % (0-9) Lymphocytes % 1 % (24-48) Monocytes % 7 % (0-10) Platelet Estimate Decreased (ADEQUATE) Medications Current Medications Ondansetron HCl (Zofran) 8 mg 1X ONCE IV Last administered on 12/24/16 14:06 ; Start 12/24/16 at 13:45; Stop 12/24/16 at 13:55; Status DC Morphine Sulfate 5 mg 1X ONCE IV Last administered on 12/24/16 14:05; Start 12/24/16 at 13:45; Stop 12/24/16 at 13:55; Status DC Ketorolac Tromethamine (Toradol) 15 mg 1X ONCE IV Last administered on 14:06; Start 12/24/16 at 13:45; Stop 12/24/16 at 13:55; Status DC Ondansetron HCl (Zofran) 4 mg PRN Q8HRS PRN IV NAUSEA/VOMITING; Start 12/24/16 at 15:00; Stop 12/25/16 at 14:59 Fentanyl Citrate (Fentanyl 2ml Vial) 50 mcg PRN Q2HR PRN IV PAIN; Start at 15:00; Stop 12/24/16 at 19:43; Status DC Ceftriaxone Sodium 1 gm/ Sodium Chloride 50 ml @ 100 mls/hr Q24H IV ; Start at 15:00; Stop 12/25/16 at 15:00; Status DC Ceftriaxone Sodium 50 ml @ 100 mls/hr 1X ONCE IV Last administered on 15:15; Start 12/24/16 at 15:00; Stop 12/24/16 at 15:29; Status DC Tamsulosin HCl (Flomax) 0.4 mg DAILY PO Last administered on 12/24/16 17:09; Start 12/24/16 at 17:00 Ondansetron HCl (Zofran) 4 mg PRN Q6HRS PRN IV NAUSEA/VOMITING; Start 12/25/16 at 07:00; Stop 12/25/16 at 23:00 Fentanyl Citrate (Fentanyl 2ml Vial) 25 mcg PRN Q5MIN PRN IV MILD PAIN; Start 12/25/16 at 07:00; Stop 12/25/16 at 07:00; Status DC Fentanyl Citrate (Fentanyl 2ml Vial) 50 mcg PRN Q5MIN PRN IV MODERATE PAIN; Start 12/25/16 at 07:00; Stop 12/25/16 at 07:00; Status DC Morphine Sulfate 1 mg PRN Q10MIN PRN IV SEVERE PAIN; Start 12/25/16 at 07:00; Stop 12/25/16 at 07:00; Status DC Ringer's Solution 1,000 ml @ 0 mls/hr Q0M IV ; Start 12/25/16 at 07:00; Stop at 18:59 Lidocaine HCl 2 ml PRN 1X PRN ID PRIOR TO IV START; Start 12/25/16 at 07:00; Stop 12/26/16 at 06:59 Hydromorphone HCl (Dilaudid) 0.5 mg PRN Q10MIN PRN IV SEV PAIN, Second choice; Start 12/25/16 at 07:00; Stop 12/25/16 at 07:00; Status DC Prochlorperazine Edisylate (Compazine) 5 mg PACU PRN PRN IV NAUSEA, MRX1; Start 12/25/16 at 07:00; Stop 12/25/16 at 23:00 Amlodipine Besylate (Norvasc) 5 mg DAILY PO ; Start 12/25/16 at 09:00 Aspirin (Children'S Aspirin) 81 mg DAILY PO ; Start 12/25/16 at 09:00 Carvedilol (Coreg) 12.5 mg BIDWMEALS PO ; Start 12/24/16 at 21:00 Metformin HCl (Glucophage) 500 mg BIDWMEALS PO ; Start 12/25/16 at 08:00 Losartan Potassium (Cozaar) 100 mg DAILY PO ; Start 12/25/16 at 09:00 Atorvastatin Calcium (Lipitor) 10 mg QHS PO Last administered on 12/24/16t 20: 25; Start 12/24/16 at 21:00 Hydrochlorothiazide (Hydrodiuril) 25 mg DAILY PO ; Start 12/25/16 at 09:00 Morphine Sulfate 1 mg PRN Q1HR PRN IV SEVERE PAIN Last administered on 21:28; Start 12/24/16 at 20:00 Lidocaine HCl (Glydo (Lidocaine) Jelly) 6 joey STK-MED ONCE .ROUTE ; Start at 06:36; Stop 12/25/16 at 06:37; Status DC Iohexol (Omnipaque 300 Mg/ml) 50 ml STK-MED ONCE .ROUTE ; Start 12/25/16 at 06: 36; Stop 12/25/16 at 06:37; Status DC Lidocaine HCl (Glydo (Lidocaine) Jelly) 6 joey STK-MED ONCE .ROUTE ; Start at 06:36; Stop 12/25/16 at 06:37; Status DC Active Scripts Active Reported Carvedilol 12.5 Mg Tablet 1 Tab PO BID Aspirin 81 Mg Tab.chew 1 Tab PO DAILY Losartan-Hctz 100-25 Mg Tab (Losartan/Hydrochlorothiazide) 1 Each Tablet 1 Tab PO DAILY Amlodipine Besylate 5 Mg Tablet 5 Mg PO DAILY Pravastatin Sodium 40 Mg Tablet 1 Tab PO QHS Metformin Hcl 500 Mg Tablet 500 Mg PO BIDWMEALS Vitals/I & O Vital Sign - Last 24 Hours 12/24/16 12/24/16 12/24/16 12/24/16 13:47 14:05 14:19 15:12 Temp 98.4 98.4 Pulse 81 77 Resp 19 B/P (MAP) 148/90 (109) 162/73 (102) 118/63 (81) Pulse Ox 98 94 95 94 O2 Delivery Room Air Room Air Room Air Nasal Cannula O2 Flow Rate 2.0 12/24/16 12/24/16 12/24/16 12/24/16 16:02 17:12 17:30 17:47 Temp 98.3 98.3 98.3 98.3 Pulse 80 87 85 85 Resp 16 B/P (MAP) 116/60 (78) 100/60 (73) 100/43 (62) 100/43 (62) Pulse Ox 95 95 91 91 O2 Delivery Nasal Cannula Nasal Cannula Nasal Cannula Nasal Cannula O2 Flow Rate 2.0 2.0 2.5 2.5 12/24/16 12/24/16 12/24/16 12/24/16 17:56 18:01 19:54 20:00 Temp 98.3 99.3 98.3 99.3 Pulse 85 79 Resp 16 B/P (MAP) 100/43 (62) 107/46 (66) Pulse Ox 91 92 O2 Delivery Nasal Cannula Nasal Cannula Room Air O2 Flow Rate 2.5 2.5 2.0 12/24/16 12/25/16 12/25/16 12/25/16 23:35 03:22 07:12 08:00 Temp 99.3 98.7 98.9 99.3 98.7 98.9 Pulse 104 74 81 81 Resp 16 18 16 B/P (MAP) 111/83 (92) 89/37 (54) 95/47 (63) 95/47 Pulse Ox 93 95 97 O2 Delivery Nasal Cannula Nasal Cannula Nasal Cannula O2 Flow Rate 2.0 2.0 2.5 Intake and Output 12/24/16 12/24/16 12/25/16 15:00 23:00 07:00 Intake Total 50 ml 50 ml Balance 50 ml 50 ml ISABELLA HAMMOND MD December 25, 2016 08:46
--- NOTE | 2016-12-25 08:47 | RAD ---
KUB, 12/25/2016: History: Right ureteral stone The renal regions are largely obscured by overlying bowel content. The patient's known intrarenal calculi are not clearly seen. There are bilateral lower pelvic calcifications, predominantly due to phleboliths. The small distal right ureteral calculus seen on the recent CT study cannot be clearly differentiated from these phleboliths radiographically. The abdominal gas pattern is unremarkable. There is no evidence of organomegaly. Moderate degenerative changes are present in the spine. IMPRESSION: No acute abdominal abnormality is detected.
[2016-12-25] MEDS: TAMSULOSIN 0.4 MG CAP.ER.24H. PO SCH (09:00)
[2016-12-25] MEDS: ASPIRIN CHEWABLE 81 MG TABLET. PO SCH (09:00)
[2016-12-25] MEDS: LOSARTAN POTASSIUM 50 MG TABLET. PO SCH (09:00)
[2016-12-25] MEDS ORDERED: hydroCHLOROthiazide 25 MG TABLET PO SCH (09:00)
[2016-12-25] MEDS ORDERED: amLODIPine BESYLATE 5 MG TABLET PO SCH (09:00)
[2016-12-25] MEDS ORDERED: PHENYLEPHRINE in 0.9% NACL PF 1 MG/10 ML DISP.SYRIN. IV ONE (09:46)
--- NOTE | 2016-12-25 10:18 | PDOC4 ---
Operative Note Operative Note pre-op dx-right ureteral stone procedure-cystoscopy, right retrograde pyelogram, right ureteral stent placement surgeon-franny colbert-general Pt. to PACU in stable condition ISABELLA HAMMOND MD December 25, 2016 10:18
--- NOTE | 2016-12-25 11:24 | PDOC ---
PROGRESS NOTES Chief Complaint Chief Complaint 1. Intraductal collecting systme kidney/ureteral stone 2. HYPOTENSION 3. Geriatric, fall risk 4. UTI 5. SIRS POA (leukocytosis etc) NO SEPSIS History of Present Illness History of Present Illness HAving cysto and stent placement AT recovery room BP low side CHart reviewed, BP running low On Anti hypertensives CT: I have personally reveiwed 1. Moderate right-sided hydronephrosis and mild hydroureter identified with a 4 mm calculus identified in the distal right ureter. There is inflammatory fat stranding identified about the right renal pelvis likely due to back pressure or pyelonephritis. 2. Gallstones identified within the gallbladder. There is some hypodensity identified in the head of the pancreas probably atrophic changes however evaluation is limited without IV contrast underlying cyst or cystic lesion is not completely excluded. Follow-up nonemergent ultrasound can be considered. 3. Mild prominent appearing right adnexa. 4. Small umbilical hernia identified containing loop of small bowel. PLAN: Dc HCTZ and norvasc Shift LR to NS 100cc.hr REcheck WBC etc CBC anais AM PAin meds Flomax Dw RN Vitals Vitals Vital Signs Date Time Temp Pulse Resp B/P (MAP) Pulse Ox O2 Delivery O2 Flow Rate FiO2 12/25/16 11:02 73 16 93/45 96 Nasal Cannula 2 12/25/16 10:47 99.1 99.1 Labs LABS Laboratory Tests Test 12/24/16 13:45 12/24/16 14:15 12/25/16 03:45 12/25/16 09:18 Urine Color Yellow Urine Clarity Clear Urine pH 8.0 Urine Specific Beaver 1.010 Urine Protein Negative mg/dL (NEG-TRACE) Urine Glucose (UA) Negative mg/dL (NEG) Urine Ketones (Stick) Negative mg/dL (NEG) Urine Blood Large (NEG) Urine Nitrite Negative (NEG) Urine Bilirubin Negative (NEG) Urine Urobilinogen Dipstick 0.2 mg/dL (0.2 mg/dL) Urine Leukocyte Esterase Large (NEG) Urine RBC 11-20 /HPF (0-2) Urine WBC 5-10 /HPF (0-4) Urine Squamous Epithelial Cells Occ /LPF Urine Bacteria Few /HPF (0-FEW) White Blood Count 4.4 x10^3/uL (4.0-11.0) 24.8 x10^3/uL (4.0-11.0) Red Blood Count 4.96 x10^6/uL (3.50-5.40) 4.53 x10^6/uL (3.50-5.40) Hemoglobin 15.0 g/dL (12.0-15.5) 13.5 g/dL (12.0-15.5) Hematocrit 43.0 % (36.0-47.0) 39.5 % (36.0-47.0) Mean Corpuscular Volume 87 fL (79-100) 87 fL (79-100) Mean Corpuscular Hemoglobin 30 pg (25-35) 30 pg (25-35) Mean Corpuscular Hemoglobin Concent 35 g/dL (31-37) 34 g/dL (31-37) Red Cell Distribution Width 13.7 % (11.5-14.5) 13.7 % (11.5-14.5) Platelet Count 151 x10^3/uL (140-400) 99 x10^3/uL (140-400) Neutrophils (%) (Auto) 87 % (31-73) 90 % (31-73) Lymphocytes (%) (Auto) 9 % (24-48) 2 % (24-48) Monocytes (%) (Auto) 2 % (0-9) 7 % (0-9) Eosinophils (%) (Auto) 2 % (0-3) 0 % (0-3) Basophils (%) (Auto) 1 % (0-3) 0 % (0-3) Neutrophils # (Auto) 3.8 x10^3uL (1.8-7.7) 22.3 x10^3uL (1.8-7.7) Lymphocytes # (Auto) 0.4 x10^3/uL (1.0-4.8) 0.6 x10^3/uL (1.0-4.8) Monocytes # (Auto) 0.1 x10^3/uL (0.0-1.1) 1.8 x10^3/uL (0.0-1.1) Eosinophils # (Auto) 0.1 x10^3/uL (0.0-0.7) 0.0 x10^3/uL (0.0-0.7) Basophils # (Auto) 0.0 x10^3/uL (0.0-0.2) 0.0 x10^3/uL (0.0-0.2) Prothrombin Time 14.2 SEC (11.7-14.0) Prothromb Time International Ratio 1.2 (0.8-1.1) Activated Partial Thromboplast Time 28 SEC (24-38) Sodium Level 138 mmol/L (136-145) 138 mmol/L (136-145) Potassium Level 3.4 mmol/L (3.5-5.1) 3.4 mmol/L (3.5-5.1) Chloride Level 99 mmol/L (98-107) 100 mmol/L (98-107) Carbon Dioxide Level 33 mmol/L (21-32) 28 mmol/L (21-32) Anion Gap 6 (6-14) 10 (6-14) Blood Urea Nitrogen 20 mg/dL (7-20) 34 mg/dL (7-20) Creatinine 1.0 mg/dL (0.6-1.0) 1.7 mg/dL (0.6-1.0) Estimated GFR (Cockcroft-Gault) 53.2 28.8 BUN/Creatinine Ratio 20 (6-20) Glucose Level 156 mg/dL (70-99) 166 mg/dL (70-99) Calcium Level 9.4 mg/dL (8.5-10.1) 9.6 mg/dL (8.5-10.1) Magnesium Level 1.6 mg/dL (1.8-2.4) Total Bilirubin 0.7 mg/dL (0.2-1.0) Aspartate Amino Transf (AST/SGOT) 21 U/L (15-37) Alanine Aminotransferase (ALT/SGPT) 22 U/L (14-59) Alkaline Phosphatase 54 U/L (46-116) Total Protein 7.5 g/dL (6.4-8.2) Albumin 3.5 g/dL (3.4-5.0) Albumin/Globulin Ratio 0.9 (1.0-1.7) Lipase 83 U/L (73-393) Segmented Neutrophils % 53 % (35-66) Band Neutrophils % 39 % (0-9) Lymphocytes % 1 % (24-48) Monocytes % 7 % (0-10) Platelet Estimate Decreased (ADEQUATE) Glucose (Fingerstick) 152 mg/dL (70-99) Test 12/25/16 10:37 Glucose (Fingerstick) 145 mg/dL (70-99) Assessment and Plan Assessmemt and Plan Problems Medical Problems: (1) Intractable pain Status: Acute (2) Right ureteral stone Status: Acute Problems: Comment Review of Relevant I have reviewed the following items jewell (where applicable) has been applied. Labs Laboratory Tests Test 12/24/16 13:45 12/24/16 14:15 12/25/16 03:45 12/25/16 09:18 Urine Color Yellow Urine Clarity Clear Urine pH 8.0 Urine Specific Beaver 1.010 Urine Protein Negative mg/dL (NEG-TRACE) Urine Glucose (UA) Negative mg/dL (NEG) Urine Ketones (Stick) Negative mg/dL (NEG) Urine Blood Large (NEG) Urine Nitrite Negative (NEG) Urine Bilirubin Negative (NEG) Urine Urobilinogen Dipstick 0.2 mg/dL (0.2 mg/dL) Urine Leukocyte Esterase Large (NEG) Urine RBC 11-20 /HPF (0-2) Urine WBC 5-10 /HPF (0-4) Urine Squamous Epithelial Cells Occ /LPF Urine Bacteria Few /HPF (0-FEW) White Blood Count 4.4 x10^3/uL (4.0-11.0) 24.8 x10^3/uL (4.0-11.0) Red Blood Count 4.96 x10^6/uL (3.50-5.40) 4.53 x10^6/uL (3.50-5.40) Hemoglobin 15.0 g/dL (12.0-15.5) 13.5 g/dL (12.0-15.5) Hematocrit 43.0 % (36.0-47.0) 39.5 % (36.0-47.0) Mean Corpuscular Volume 87 fL (79-100) 87 fL (79-100) Mean Corpuscular Hemoglobin 30 pg (25-35) 30 pg (25-35) Mean Corpuscular Hemoglobin Concent 35 g/dL (31-37) 34 g/dL (31-37) Red Cell Distribution Width 13.7 % (11.5-14.5) 13.7 % (11.5-14.5) Platelet Count 151 x10^3/uL (140-400) 99 x10^3/uL (140-400) Neutrophils (%) (Auto) 87 % (31-73) 90 % (31-73) Lymphocytes (%) (Auto) 9 % (24-48) 2 % (24-48) Monocytes (%) (Auto) 2 % (0-9) 7 % (0-9) Eosinophils (%) (Auto) 2 % (0-3) 0 % (0-3) Basophils (%) (Auto) 1 % (0-3) 0 % (0-3) Neutrophils # (Auto) 3.8 x10^3uL (1.8-7.7) 22.3 x10^3uL (1.8-7.7) Lymphocytes # (Auto) 0.4 x10^3/uL (1.0-4.8) 0.6 x10^3/uL (1.0-4.8) Monocytes # (Auto) 0.1 x10^3/uL (0.0-1.1) 1.8 x10^3/uL (0.0-1.1) Eosinophils # (Auto) 0.1 x10^3/uL (0.0-0.7) 0.0 x10^3/uL (0.0-0.7) Basophils # (Auto) 0.0 x10^3/uL (0.0-0.2) 0.0 x10^3/uL (0.0-0.2) Prothrombin Time 14.2 SEC (11.7-14.0) Prothromb Time International Ratio 1.2 (0.8-1.1) Activated Partial Thromboplast Time 28 SEC (24-38) Sodium Level 138 mmol/L (136-145) 138 mmol/L (136-145) Potassium Level 3.4 mmol/L (3.5-5.1) 3.4 mmol/L (3.5-5.1) Chloride Level 99 mmol/L (98-107) 100 mmol/L (98-107) Carbon Dioxide Level 33 mmol/L (21-32) 28 mmol/L (21-32) Anion Gap 6 (6-14) 10 (6-14) Blood Urea Nitrogen 20 mg/dL (7-20) 34 mg/dL (7-20) Creatinine 1.0 mg/dL (0.6-1.0) 1.7 mg/dL (0.6-1.0) Estimated GFR (Cockcroft-Gault) 53.2 28.8 BUN/Creatinine Ratio 20 (6-20) Glucose Level 156 mg/dL (70-99) 166 mg/dL (70-99) Calcium Level 9.4 mg/dL (8.5-10.1) 9.6 mg/dL (8.5-10.1) Magnesium Level 1.6 mg/dL (1.8-2.4) Total Bilirubin 0.7 mg/dL (0.2-1.0) Aspartate Amino Transf (AST/SGOT) 21 U/L (15-37) Alanine Aminotransferase (ALT/SGPT) 22 U/L (14-59) Alkaline Phosphatase 54 U/L (46-116) Total Protein 7.5 g/dL (6.4-8.2) Albumin 3.5 g/dL (3.4-5.0) Albumin/Globulin Ratio 0.9 (1.0-1.7) Lipase 83 U/L (73-393) Segmented Neutrophils % 53 % (35-66) Band Neutrophils % 39 % (0-9) Lymphocytes % 1 % (24-48) Monocytes % 7 % (0-10) Platelet Estimate Decreased (ADEQUATE) Glucose (Fingerstick) 152 mg/dL (70-99) Test 12/25/16 10:37 Glucose (Fingerstick) 145 mg/dL (70-99) Laboratory Tests Test 12/24/16 13:45 12/24/16 14:15 12/25/16 03:45 12/25/16 09:18 Urine Color Yellow Urine Clarity Clear Urine pH 8.0 Urine Specific Beaver 1.010 Urine Protein Negative mg/dL (NEG-TRACE) Urine Glucose (UA) Negative mg/dL (NEG) Urine Ketones (Stick) Negative mg/dL (NEG) Urine Blood Large (NEG) Urine Nitrite Negative (NEG) Urine Bilirubin Negative (NEG) Urine Urobilinogen Dipstick 0.2 mg/dL (0.2 mg/dL) Urine Leukocyte Esterase Large (NEG) Urine RBC 11-20 /HPF (0-2) Urine WBC 5-10 /HPF (0-4) Urine Squamous Epithelial Cells Occ /LPF Urine Bacteria Few /HPF (0-FEW) White Blood Count 4.4 x10^3/uL (4.0-11.0) 24.8 x10^3/uL (4.0-11.0) Red Blood Count 4.96 x10^6/uL (3.50-5.40) 4.53 x10^6/uL (3.50-5.40) Hemoglobin 15.0 g/dL (12.0-15.5) 13.5 g/dL (12.0-15.5) Hematocrit 43.0 % (36.0-47.0) 39.5 % (36.0-47.0) Mean Corpuscular Volume 87 fL (79-100) 87 fL (79-100) Mean Corpuscular Hemoglobin 30 pg (25-35) 30 pg (25-35) Mean Corpuscular Hemoglobin Concent 35 g/dL (31-37) 34 g/dL (31-37) Red Cell Distribution Width 13.7 % (11.5-14.5) 13.7 % (11.5-14.5) Platelet Count 151 x10^3/uL (140-400) 99 x10^3/uL (140-400) Neutrophils (%) (Auto) 87 % (31-73) 90 % (31-73) Lymphocytes (%) (Auto) 9 % (24-48) 2 % (24-48) Monocytes (%) (Auto) 2 % (0-9) 7 % (0-9) Eosinophils (%) (Auto) 2 % (0-3) 0 % (0-3) Basophils (%) (Auto) 1 % (0-3) 0 % (0-3) Neutrophils # (Auto) 3.8 x10^3uL (1.8-7.7) 22.3 x10^3uL (1.8-7.7) Lymphocytes # (Auto) 0.4 x10^3/uL (1.0-4.8) 0.6 x10^3/uL (1.0-4.8) Monocytes # (Auto) 0.1 x10^3/uL (0.0-1.1) 1.8 x10^3/uL (0.0-1.1) Eosinophils # (Auto) 0.1 x10^3/uL (0.0-0.7) 0.0 x10^3/uL (0.0-0.7) Basophils # (Auto) 0.0 x10^3/uL (0.0-0.2) 0.0 x10^3/uL (0.0-0.2) Prothrombin Time 14.2 SEC (11.7-14.0) Prothromb Time International Ratio 1.2 (0.8-1.1) Activated Partial Thromboplast Time 28 SEC (24-38) Sodium Level 138 mmol/L (136-145) 138 mmol/L (136-145) Potassium Level 3.4 mmol/L (3.5-5.1) 3.4 mmol/L (3.5-5.1) Chloride Level 99 mmol/L (98-107) 100 mmol/L (98-107) Carbon Dioxide Level 33 mmol/L (21-32) 28 mmol/L (21-32) Anion Gap 6 (6-14) 10 (6-14) Blood Urea Nitrogen 20 mg/dL (7-20) 34 mg/dL (7-20) Creatinine 1.0 mg/dL (0.6-1.0) 1.7 mg/dL (0.6-1.0) Estimated GFR (Cockcroft-Gault) 53.2 28.8 BUN/Creatinine Ratio 20 (6-20) Glucose Level 156 mg/dL (70-99) 166 mg/dL (70-99) Calcium Level 9.4 mg/dL (8.5-10.1) 9.6 mg/dL (8.5-10.1) Magnesium Level 1.6 mg/dL (1.8-2.4) Total Bilirubin 0.7 mg/dL (0.2-1.0) Aspartate Amino Transf (AST/SGOT) 21 U/L (15-37) Alanine Aminotransferase (ALT/SGPT) 22 U/L (14-59) Alkaline Phosphatase 54 U/L (46-116) Total Protein 7.5 g/dL (6.4-8.2) Albumin 3.5 g/dL (3.4-5.0) Albumin/Globulin Ratio 0.9 (1.0-1.7) Lipase 83 U/L (73-393) Segmented Neutrophils % 53 % (35-66) Band Neutrophils % 39 % (0-9) Lymphocytes % 1 % (24-48) Monocytes % 7 % (0-10) Platelet Estimate Decreased (ADEQUATE) Glucose (Fingerstick) 152 mg/dL (70-99) Test 12/25/16 10:37 Glucose (Fingerstick) 145 mg/dL (70-99) Medications Current Medications Ondansetron HCl (Zofran) 8 mg 1X ONCE IV Last administered on 12/24/16 14:06 ; Start 12/24/16 at 13:45; Stop 12/24/16 at 13:55; Status DC Morphine Sulfate 5 mg 1X ONCE IV Last administered on 12/24/16 14:05; Start 12/24/16 at 13:45; Stop 12/24/16 at 13:55; Status DC Ketorolac Tromethamine (Toradol) 15 mg 1X ONCE IV Last administered on 14:06; Start 12/24/16 at 13:45; Stop 12/24/16 at 13:55; Status DC Ondansetron HCl (Zofran) 4 mg PRN Q8HRS PRN IV NAUSEA/VOMITING; Start 12/24/16 at 15:00; Stop 12/25/16 at 14:59 Fentanyl Citrate (Fentanyl 2ml Vial) 50 mcg PRN Q2HR PRN IV PAIN; Start at 15:00; Stop 12/24/16 at 19:43; Status DC Ceftriaxone Sodium 1 gm/ Sodium Chloride 50 ml @ 100 mls/hr Q24H IV ; Start at 15:00; Stop 12/25/16 at 15:00; Status DC Ceftriaxone Sodium 50 ml @ 100 mls/hr 1X ONCE IV Last administered on 15:15; Start 12/24/16 at 15:00; Stop 12/24/16 at 15:29; Status DC Tamsulosin HCl (Flomax) 0.4 mg DAILY PO Last administered on 12/24/16 17:09; Start 12/24/16 at 17:00 Ondansetron HCl (Zofran) 4 mg PRN Q6HRS PRN IV NAUSEA/VOMITING; Start 12/25/16 at 07:00; Stop 12/25/16 at 23:00 Fentanyl Citrate (Fentanyl 2ml Vial) 25 mcg PRN Q5MIN PRN IV MILD PAIN; Start 12/25/16 at 07:00; Stop 12/25/16 at 07:00; Status DC Fentanyl Citrate (Fentanyl 2ml Vial) 50 mcg PRN Q5MIN PRN IV MODERATE PAIN; Start 12/25/16 at 07:00; Stop 12/25/16 at 07:00; Status DC Morphine Sulfate 1 mg PRN Q10MIN PRN IV SEVERE PAIN; Start 12/25/16 at 07:00; Stop 12/25/16 at 07:00; Status DC Ringer's Solution 1,000 ml @ 0 mls/hr Q0M IV ; Start 12/25/16 at 07:00; Stop at 18:59 Lidocaine HCl 2 ml PRN 1X PRN ID PRIOR TO IV START; Start 12/25/16 at 07:00; Stop 12/26/16 at 06:59 Hydromorphone HCl (Dilaudid) 0.5 mg PRN Q10MIN PRN IV SEV PAIN, Second choice; Start 12/25/16 at 07:00; Stop 12/25/16 at 07:00; Status DC Prochlorperazine Edisylate (Compazine) 5 mg PACU PRN PRN IV NAUSEA, MRX1; Start 12/25/16 at 07:00; Stop 12/25/16 at 23:00 Amlodipine Besylate (Norvasc) 5 mg DAILY PO ; Start 12/25/16 at 09:00; Stop at 09:20; Status DC Aspirin (Children'S Aspirin) 81 mg DAILY PO ; Start 12/25/16 at 09:00 Carvedilol (Coreg) 12.5 mg BIDWMEALS PO ; Start 12/24/16 at 21:00 Metformin HCl (Glucophage) 500 mg BIDWMEALS PO ; Start 12/25/16 at 08:00 Losartan Potassium (Cozaar) 100 mg DAILY PO ; Start 12/25/16 at 09:00 Atorvastatin Calcium (Lipitor) 10 mg QHS PO Last administered on 12/24/16t 20: 25; Start 12/24/16 at 21:00 Hydrochlorothiazide (Hydrodiuril) 25 mg DAILY PO ; Start 12/25/16 at 09:00; Stop 12/25/16 at 09:20; Status DC Morphine Sulfate 1 mg PRN Q1HR PRN IV SEVERE PAIN Last administered on 21:28; Start 12/24/16 at 20:00 Lidocaine HCl (Glydo (Lidocaine) Jelly) 6 joey STK-MED ONCE .ROUTE Last administered on 12/25/16 10:08; Start 12/25/16 at 06:36; Stop 12/25/16 at 06:37 ; Status DC Iohexol (Omnipaque 300 Mg/ml) 50 ml STK-MED ONCE .ROUTE Last administered on 09:56; Start 12/25/16 at 06:36; Stop 12/25/16 at 06:37; Status DC Lidocaine HCl (Glydo (Lidocaine) Jelly) 6 joey STK-MED ONCE .ROUTE Last administered on 12/25/16 10:08; Start 12/25/16 at 06:36; Stop 12/25/16 at 06:37 ; Status DC Dextrose/Lactated Ringer's 1,000 ml @ 100 mls/hr Q10H IV ; Start 12/25/16 at 08 :45 Levofloxacin/ Dextrose 50 ml @ 50 mls/hr 1X ONCE IV Last administered on 09:43; Start 12/25/16 at 09:15; Stop 12/25/16 at 10:14; Status DC Phenylephrine HCl 1 mg STK-MED ONCE IV ; Start 12/25/16 at 09:46; Stop 12/25/16 at 09:47; Status DC Active Scripts Active Reported Carvedilol 12.5 Mg Tablet 1 Tab PO BID Aspirin 81 Mg Tab.chew 1 Tab PO DAILY Losartan-Hctz 100-25 Mg Tab (Losartan/Hydrochlorothiazide) 1 Each Tablet 1 Tab PO DAILY Amlodipine Besylate 5 Mg Tablet 5 Mg PO DAILY Pravastatin Sodium 40 Mg Tablet 1 Tab PO QHS Metformin Hcl 500 Mg Tablet 500 Mg PO BIDWMEALS Vitals/I & O Vital Sign - Last 24 Hours 12/24/16 12/24/16 12/24/16 12/24/16 13:47 14:05 14:19 15:12 Temp 98.4 98.4 Pulse 81 77 Resp 17 19 B/P (MAP) 148/90 (109) 162/73 (102) 118/63 (81) Pulse Ox 98 94 95 94 O2 Delivery Room Air Room Air Room Air Nasal Cannula O2 Flow Rate 2.0 12/24/16 12/24/16 12/24/16 12/24/16 16:02 17:12 17:30 17:47 Temp 98.3 98.3 98.3 98.3 Pulse 80 87 85 85 Resp 19 19 16 16 B/P (MAP) 116/60 (78) 100/60 (73) 100/43 (62) 100/43 (62) Pulse Ox 95 95 91 91 O2 Delivery Nasal Cannula Nasal Cannula Nasal Cannula Nasal Cannula O2 Flow Rate 2.0 2.0 2.5 2.5 12/24/16 12/24/16 12/24/16 12/24/16 17:56 18:01 19:54 20:00 Temp 98.3 99.3 98.3 99.3 Pulse 85 79 Resp 16 B/P (MAP) 100/43 (62) 107/46 (66) Pulse Ox 91 92 O2 Delivery Nasal Cannula Nasal Cannula Room Air O2 Flow Rate 2.5 2.5 2.0 12/24/16 12/25/16 12/25/16 12/25/16 23:35 03:22 07:12 08:00 Temp 99.3 98.7 98.9 99.3 98.7 98.9 Pulse 104 74 81 81 Resp 16 18 16 B/P (MAP) 111/83 (92) 89/37 (54) 95/47 (63) 95/47 Pulse Ox 93 95 97 O2 Delivery Nasal Cannula Nasal Cannula Nasal Cannula O2 Flow Rate 2.0 2.0 2.5 12/25/16 12/25/16 12/25/16 12/25/16 09:27 10:17 10:30 10:32 Temp 97.2 97.6 97.2 97.6 Pulse 83 80 74 Resp 12 16 18 B/P (MAP) 94/53 97/53 107/57 Pulse Ox 91 95 96 O2 Delivery Room Air Nasal Cannula Nasal Cannula Nasal Cannula O2 Flow Rate 2 2 2 12/25/16 12/25/16 10:47 11:02 Temp 99.1 99.1 Pulse 80 73 Resp 16 16 B/P (MAP) 89/54 93/45 Pulse Ox 94 96 O2 Delivery Nasal Cannula Nasal Cannula O2 Flow Rate 2 2 Intake and Output 12/24/16 12/24/16 12/25/16 15:00 23:00 07:00 Intake Total 50 ml 50 ml Balance 50 ml 50 ml VERÓNICA FERNANDEZ MD December 25, 2016 11:24
[2016-12-25] MEDS: IV NORMAL SALINE 1000ML BAG 1,000 ML IV SCH ×2 (12:19→21:30)
--- NOTE | 2016-12-25 14:34 | OP ---
DATE OF SURGERY: 12/25/2016 OPERATION: Cystoscopy, right retrograde pyelogram, right ureteral stent placement. SURGEON: Isabella Alexandra MD ANESTHESIA: General. PREOPERATIVE DIAGNOSIS: Right ureteral stone and urinary tract infection. POSTOPERATIVE DIAGNOSIS: Right ureteral stone and urinary tract infection. INDICATIONS: The patient is a very pleasant 81-year-old white female who is admitted with right renal colic and have 4-mm right distal ureteral stone. The patient initially had normal white cell count and normal creatinine and did have some leukocyte esterase positive and ____ negative. She was started on Rocephin and white count increased up to 24,000 and creatinine increased to 1.7. Although the patient was became asymptomatic of her pain. I discussed with the patient the options, alternatives, benefits, risks and possible complications of cystoscopy, right retrograde pyelogram, and right ureteral stent placement to get her unobstructed and ____ urinary tract infection. She understands this and does wish to proceed with the operation. DESCRIPTION OF PROCEDURE: After obtaining informed consent, the patient was taken to operating room. After an excellent general anesthetic, the patient was placed in a dorsolithotomy position. Groin was prepped and draped in sterile fashion. The patient was already on IV antibiotics and was given an additional Levaquin IV preoperatively. Panendoscopy and cystoscopy were then performed with the 30 and 70-degree lens and the 21-Mohawk cystoscope sheath. Bladder was entered and inspected. The patient noted to have cystitis changes in the bladder. Both ureteral orifices were identified and found to be grossly patent. No bladder tumors or bladder stones were identified. Following this, right retrograde pyelogram was performed. The patient noted to have filling defect in the right distal ureter consistent with the patient's stone but no significant dilation of the ureter above that level. Following this, floppy-tipped ZIPwire was able to be passed up the right ureteral orifice past the stone up the right ureter to the right kidney and then a 5-Mohawk Pollack catheter, passed up the ZIPwire to the right kidney and some urine was obtained for culture. The urine from the right kidney appeared clear yellow in color. There was mild dilation of the right renal pelvis and calices. Following this, the ZIPwire was then replaced and the Pollack catheter removed and following this, a 4.8 x 22 double-J stent was then passed up the ZIPwire, placing one curl in the right kidney and another curl in the bladder. and the ZIPwire removed. Stent position was checked by fluoroscopy and direct vision, found to be in good position. Following this, bladder was then drained and the cystoscope was withdrawn from the patient. The patient tolerated the procedure very well, was taken to recovery room in stable condition. Plan will be as to treat her urinary tract infection and then once that has been completely treated, then undergo definitive therapy of the patient's right distal ureteral stone. ISABELLA ALEXANDRA MD DR: HUMBERTO/radha JOB#: [id number] / [id number]
[2016-12-25] MEDS: ATORVASTATIN CALCIUM 10 MG TABLET. PO SCH (21:53)
[2016-12-26 03:00] VITALS: BP 129/65
[2016-12-26 05:47] LABS: BASO % 0 % (0-3); EOS % 0 % (0-3); HEMATOCRIT 38.8 % (36.0-47.0); HEMOGLOBIN 13.3 g/dL (12.0-15.5); LYMPH # 0.9 x10^3/uL (1.0-4.8); LYMPH % 4 % (24-48); MEAN CORPUSCULAR HEMOGLOBIN 30 pg (25-35); MEAN CORPUSCULAR HGB CONC 34 g/dL (31-37); MEAN CORPUSCULAR VOLUME 87 fL (79-100); MONO % 6 % (0-9); NEUT % 91 % (31-73); PLATELET COUNT 99 x10^3/uL (140-400); RED BLOOD COUNT 4.47 x10^6/uL (3.50-5.40); RED CELL DISTRIBUTION WIDTH 13.7 % (11.5-14.5); WHITE BLOOD COUNT 26.1 x10^3/uL (4.0-11.0)
[2016-12-26 05:58] LABS: CALCIUM 9.1 mg/dL (8.5-10.1); CREATININE 1.2 mg/dL (0.6-1.0); GFR 43.1; POTASSIUM 3.2 mmol/L (3.5-5.1)
[2016-12-26 07:00] VITALS: BP 101/49
[2016-12-26] MEDS: IV NORMAL SALINE 1000ML BAG 1,000 ML IV SCH (07:30)
[2016-12-26] MEDS: MEROPENEM 500 MG in IV NORMAL SALINE 50ML 50 ML IV SCH ×3 (08:18→17:26)
--- NOTE | 2016-12-26 08:20 | PDOC ---
Infectious Disease Note ROS ROS Vital Sign Vital Signs Vital Signs Date Time Temp Pulse Resp B/P (MAP) Pulse Ox O2 Delivery O2 Flow Rate FiO2 12/26/16 07:00 98.1 63 18 101/49 (66) 95 Nasal Cannula 2.5 98.1 Labs Lab Laboratory Tests Test 12/25/16 09:18 12/25/16 10:37 12/26/16 04:40 Glucose (Fingerstick) 152 mg/dL (70-99) 145 mg/dL (70-99) White Blood Count 26.1 x10^3/uL (4.0-11.0) Red Blood Count 4.47 x10^6/uL (3.50-5.40) Hemoglobin 13.3 g/dL (12.0-15.5) Hematocrit 38.8 % (36.0-47.0) Mean Corpuscular Volume 87 fL (79-100) Mean Corpuscular Hemoglobin 30 pg (25-35) Mean Corpuscular Hemoglobin Concent 34 g/dL (31-37) Red Cell Distribution Width 13.7 % (11.5-14.5) Platelet Count 99 x10^3/uL (140-400) Neutrophils (%) (Auto) 91 % (31-73) Lymphocytes (%) (Auto) 4 % (24-48) Monocytes (%) (Auto) 6 % (0-9) Eosinophils (%) (Auto) 0 % (0-3) Basophils (%) (Auto) 0 % (0-3) Neutrophils # (Auto) 23.6 x10^3uL (1.8-7.7) Lymphocytes # (Auto) 0.9 x10^3/uL (1.0-4.8) Monocytes # (Auto) 1.5 x10^3/uL (0.0-1.1) Eosinophils # (Auto) 0.0 x10^3/uL (0.0-0.7) Basophils # (Auto) 0.0 x10^3/uL (0.0-0.2) Sodium Level 139 mmol/L (136-145) Potassium Level 3.2 mmol/L (3.5-5.1) Chloride Level 102 mmol/L (98-107) Carbon Dioxide Level 28 mmol/L (21-32) Anion Gap 9 (6-14) Blood Urea Nitrogen 44 mg/dL (7-20) Creatinine 1.2 mg/dL (0.6-1.0) Estimated GFR (Cockcroft-Gault) 43.1 Glucose Level 137 mg/dL (70-99) Calcium Level 9.1 mg/dL (8.5-10.1) Objective Assessment Proteus UTI - POA with likely pyelonephritis Leukocytosis - Sec to infection an d? post op - clinically she feels well S/p Cystoscopy, right retrograde pyelogram, right ureteral stent placement.12/25 GERD DM Lung nodules on CT Plan Plan of Care ID NOT SEE 12/25 WAS IN SURGERY. I did speak with Dr. Alexandra and she had received Rocephin and Levoflox preop 12/25 so I did not make any abx adjustments This am changed to Meropenem as WBC has increased D/w micro this am and Proteus is only resistant to nitrofurantoin and tetracycline. Will cont Meropenem to confirm results and be sure a second bacteria does not grow that may be resistant F/u labs/cults in am May benefit from Prontonix/Pepcid F/u Pulm nodules per primary Thank you # [id number] VICKY BAI MD December 26, 2016 08:20
[2016-12-26] MEDS: LOSARTAN POTASSIUM 50 MG TABLET. PO SCH (08:22)
[2016-12-26] MEDS: metFORMIN 500 MG TABLET PO SCH ×2 (08:22→17:25)
[2016-12-26] MEDS: ASPIRIN CHEWABLE 81 MG TABLET. PO SCH (08:22)
[2016-12-26] MEDS: CARVEDILOL 12.5 MG TABLET. PO SCH ×2 (08:23→17:25)
[2016-12-26] MEDS: TAMSULOSIN 0.4 MG CAP.ER.24H. PO SCH (08:23)
--- NOTE | 2016-12-26 10:10 | PDOC ---
PROGRESS NOTES Chief Complaint Chief Complaint 1. 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 HYPOTENSION, fluid responsive 3. Geriatric, fall risk 4. UTI 5. SIRS POA (leukocytosis etc) NO SEPSIS History of Present Illness History of Present Illness WBC higher Shifted to meropenem by ID today NO fevers Some bloody urine but clearing up NO abd pain CT chest shows incidental 4 mm pulm nodule Never smoker PLAN: Follow ID recs Follow urine cxs Pulmo consult Likely interval CTs can 6 mos time Add PT/OT CBC again anais, dw pt and RN Vitals Vitals Vital Signs Date Time Temp Pulse Resp B/P (MAP) Pulse Ox O2 Delivery O2 Flow Rate FiO2 12/26/16 08:23 63 101/49 12/26/16 08:00 Nasal Cannula 2.5 12/26/16 07:00 98.1 18 95 98.1 Physical Exam General: Alert, Oriented X3, Cooperative Heart: Regular rate, Normal S2 Lungs: Clear Abdomen: Normal bowel sounds, Soft Extremities: No clubbing, No cyanosis Skin: No rashes, No breakdown Labs LABS Laboratory Tests Test 12/25/16 10:37 12/26/16 04:40 Glucose (Fingerstick) 145 mg/dL (70-99) White Blood Count 26.1 x10^3/uL (4.0-11.0) Red Blood Count 4.47 x10^6/uL (3.50-5.40) Hemoglobin 13.3 g/dL (12.0-15.5) Hematocrit 38.8 % (36.0-47.0) Mean Corpuscular Volume 87 fL (79-100) Mean Corpuscular Hemoglobin 30 pg (25-35) Mean Corpuscular Hemoglobin Concent 34 g/dL (31-37) Red Cell Distribution Width 13.7 % (11.5-14.5) Platelet Count 99 x10^3/uL (140-400) Neutrophils (%) (Auto) 91 % (31-73) Lymphocytes (%) (Auto) 4 % (24-48) Monocytes (%) (Auto) 6 % (0-9) Eosinophils (%) (Auto) 0 % (0-3) Basophils (%) (Auto) 0 % (0-3) Neutrophils # (Auto) 23.6 x10^3uL (1.8-7.7) Lymphocytes # (Auto) 0.9 x10^3/uL (1.0-4.8) Monocytes # (Auto) 1.5 x10^3/uL (0.0-1.1) Eosinophils # (Auto) 0.0 x10^3/uL (0.0-0.7) Basophils # (Auto) 0.0 x10^3/uL (0.0-0.2) Sodium Level 139 mmol/L (136-145) Potassium Level 3.2 mmol/L (3.5-5.1) Chloride Level 102 mmol/L (98-107) Carbon Dioxide Level 28 mmol/L (21-32) Anion Gap 9 (6-14) Blood Urea Nitrogen 44 mg/dL (7-20) Creatinine 1.2 mg/dL (0.6-1.0) Estimated GFR (Cockcroft-Gault) 43.1 Glucose Level 137 mg/dL (70-99) Calcium Level 9.1 mg/dL (8.5-10.1) Review of Systems Review of Systems bloody urine but clearing up, no abd pain, no emesis, no cp or cough Assessment and Plan Assessmemt and Plan Problems Medical Problems: (1) Intractable pain Status: Acute (2) Right ureteral stone Status: Acute Problems: Comment Review of Relevant I have reviewed the following items jewell (where applicable) has been applied. Labs Laboratory Tests Test 12/24/16 13:45 12/24/16 14:15 12/25/16 03:45 12/25/16 09:18 Urine Color Yellow Urine Clarity Clear Urine pH 8.0 Urine Specific [place] 1.010 Urine Protein Negative mg/dL (NEG-TRACE) Urine Glucose (UA) Negative mg/dL (NEG) Urine Ketones (Stick) Negative mg/dL (NEG) Urine Blood Large (NEG) Urine Nitrite Negative (NEG) Urine Bilirubin Negative (NEG) Urine Urobilinogen Dipstick 0.2 mg/dL (0.2 mg/dL) Urine Leukocyte Esterase Large (NEG) Urine RBC 11-20 /HPF (0-2) Urine WBC 5-10 /HPF (0-4) Urine Squamous Epithelial Cells Occ /LPF Urine Bacteria Few /HPF (0-FEW) White Blood Count 4.4 x10^3/uL (4.0-11.0) 24.8 x10^3/uL (4.0-11.0) Red Blood Count 4.96 x10^6/uL (3.50-5.40) 4.53 x10^6/uL (3.50-5.40) Hemoglobin 15.0 g/dL (12.0-15.5) 13.5 g/dL (12.0-15.5) Hematocrit 43.0 % (36.0-47.0) 39.5 % (36.0-47.0) Mean Corpuscular Volume 87 fL (79-100) 87 fL (79-100) Mean Corpuscular Hemoglobin 30 pg (25-35) 30 pg (25-35) Mean Corpuscular Hemoglobin Concent 35 g/dL (31-37) 34 g/dL (31-37) Red Cell Distribution Width 13.7 % (11.5-14.5) 13.7 % (11.5-14.5) Platelet Count 151 x10^3/uL (140-400) 99 x10^3/uL (140-400) Neutrophils (%) (Auto) 87 % (31-73) 90 % (31-73) Lymphocytes (%) (Auto) 9 % (24-48) 2 % (24-48) Monocytes (%) (Auto) 2 % (0-9) 7 % (0-9) Eosinophils (%) (Auto) 2 % (0-3) 0 % (0-3) Basophils (%) (Auto) 1 % (0-3) 0 % (0-3) Neutrophils # (Auto) 3.8 x10^3uL (1.8-7.7) 22.3 x10^3uL (1.8-7.7) Lymphocytes # (Auto) 0.4 x10^3/uL (1.0-4.8) 0.6 x10^3/uL (1.0-4.8) Monocytes # (Auto) 0.1 x10^3/uL (0.0-1.1) 1.8 x10^3/uL (0.0-1.1) Eosinophils # (Auto) 0.1 x10^3/uL (0.0-0.7) 0.0 x10^3/uL (0.0-0.7) Basophils # (Auto) 0.0 x10^3/uL (0.0-0.2) 0.0 x10^3/uL (0.0-0.2) Prothrombin Time 14.2 SEC (11.7-14.0) Prothromb Time International Ratio 1.2 (0.8-1.1) Activated Partial Thromboplast Time 28 SEC (24-38) Sodium Level 138 mmol/L (136-145) 138 mmol/L (136-145) Potassium Level 3.4 mmol/L (3.5-5.1) 3.4 mmol/L (3.5-5.1) Chloride Level 99 mmol/L (98-107) 100 mmol/L (98-107) Carbon Dioxide Level 33 mmol/L (21-32) 28 mmol/L (21-32) Anion Gap 6 (6-14) 10 (6-14) Blood Urea Nitrogen 20 mg/dL (7-20) 34 mg/dL (7-20) Creatinine 1.0 mg/dL (0.6-1.0) 1.7 mg/dL (0.6-1.0) Estimated GFR (Cockcroft-Gault) 53.2 28.8 BUN/Creatinine Ratio 20 (6-20) Glucose Level 156 mg/dL (70-99) 166 mg/dL (70-99) Calcium Level 9.4 mg/dL (8.5-10.1) 9.6 mg/dL (8.5-10.1) Magnesium Level 1.6 mg/dL (1.8-2.4) Total Bilirubin 0.7 mg/dL (0.2-1.0) Aspartate Amino Transf (AST/SGOT) 21 U/L (15-37) Alanine Aminotransferase (ALT/SGPT) 22 U/L (14-59) Alkaline Phosphatase 54 U/L (46-116) Total Protein 7.5 g/dL (6.4-8.2) Albumin 3.5 g/dL (3.4-5.0) Albumin/Globulin Ratio 0.9 (1.0-1.7) Lipase 83 U/L (73-393) Segmented Neutrophils % 53 % (35-66) Band Neutrophils % 39 % (0-9) Lymphocytes % 1 % (24-48) Monocytes % 7 % (0-10) Platelet Estimate Decreased (ADEQUATE) Glucose (Fingerstick) 152 mg/dL (70-99) Test 12/25/16 10:37 12/26/16 04:40 Glucose (Fingerstick) 145 mg/dL (70-99) White Blood Count 26.1 x10^3/uL (4.0-11.0) Red Blood Count 4.47 x10^6/uL (3.50-5.40) Hemoglobin 13.3 g/dL (12.0-15.5) Hematocrit 38.8 % (36.0-47.0) Mean Corpuscular Volume 87 fL (79-100) Mean Corpuscular Hemoglobin 30 pg (25-35) Mean Corpuscular Hemoglobin Concent 34 g/dL (31-37) Red Cell Distribution Width 13.7 % (11.5-14.5) Platelet Count 99 x10^3/uL (140-400) Neutrophils (%) (Auto) 91 % (31-73) Lymphocytes (%) (Auto) 4 % (24-48) Monocytes (%) (Auto) 6 % (0-9) Eosinophils (%) (Auto) 0 % (0-3) Basophils (%) (Auto) 0 % (0-3) Neutrophils # (Auto) 23.6 x10^3uL (1.8-7.7) Lymphocytes # (Auto) 0.9 x10^3/uL (1.0-4.8) Monocytes # (Auto) 1.5 x10^3/uL (0.0-1.1) Eosinophils # (Auto) 0.0 x10^3/uL (0.0-0.7) Basophils # (Auto) 0.0 x10^3/uL (0.0-0.2) Sodium Level 139 mmol/L (136-145) Potassium Level 3.2 mmol/L (3.5-5.1) Chloride Level 102 mmol/L (98-107) Carbon Dioxide Level 28 mmol/L (21-32) Anion Gap 9 (6-14) Blood Urea Nitrogen 44 mg/dL (7-20) Creatinine 1.2 mg/dL (0.6-1.0) Estimated GFR (Cockcroft-Gault) 43.1 Glucose Level 137 mg/dL (70-99) Calcium Level 9.1 mg/dL (8.5-10.1) Laboratory Tests Test 12/25/16 10:37 12/26/16 04:40 Glucose (Fingerstick) 145 mg/dL (70-99) White Blood Count 26.1 x10^3/uL (4.0-11.0) Red Blood Count 4.47 x10^6/uL (3.50-5.40) Hemoglobin 13.3 g/dL (12.0-15.5) Hematocrit 38.8 % (36.0-47.0) Mean Corpuscular Volume 87 fL (79-100) Mean Corpuscular Hemoglobin 30 pg (25-35) Mean Corpuscular Hemoglobin Concent 34 g/dL (31-37) Red Cell Distribution Width 13.7 % (11.5-14.5) Platelet Count 99 x10^3/uL (140-400) Neutrophils (%) (Auto) 91 % (31-73) Lymphocytes (%) (Auto) 4 % (24-48) Monocytes (%) (Auto) 6 % (0-9) Eosinophils (%) (Auto) 0 % (0-3) Basophils (%) (Auto) 0 % (0-3) Neutrophils # (Auto) 23.6 x10^3uL (1.8-7.7) Lymphocytes # (Auto) 0.9 x10^3/uL (1.0-4.8) Monocytes # (Auto) 1.5 x10^3/uL (0.0-1.1) Eosinophils # (Auto) 0.0 x10^3/uL (0.0-0.7) Basophils # (Auto) 0.0 x10^3/uL (0.0-0.2) Sodium Level 139 mmol/L (136-145) Potassium Level 3.2 mmol/L (3.5-5.1) Chloride Level 102 mmol/L (98-107) Carbon Dioxide Level 28 mmol/L (21-32) Anion Gap 9 (6-14) Blood Urea Nitrogen 44 mg/dL (7-20) Creatinine 1.2 mg/dL (0.6-1.0) Estimated GFR (Cockcroft-Gault) 43.1 Glucose Level 137 mg/dL (70-99) Calcium Level 9.1 mg/dL (8.5-10.1) Microbiology 12/24/16 Urine Culture - Final, Complete 12/24/16 Urine Culture Result 1 (FAY) - Final, Complete 12/24/16 Antimicrobic Susceptibility - Final, Complete Medications Current Medications Ondansetron HCl (Zofran) 8 mg 1X ONCE IV Last administered on 12/24/16 14:06 ; Start 12/24/16 at 13:45; Stop 12/24/16 at 13:55; Status DC Morphine Sulfate 5 mg 1X ONCE IV Last administered on 12/24/16 14:05; Start 12/24/16 at 13:45; Stop 12/24/16 at 13:55; Status DC Ketorolac Tromethamine (Toradol) 15 mg 1X ONCE IV Last administered on 14:06; Start 12/24/16 at 13:45; Stop 12/24/16 at 13:55; Status DC Ondansetron HCl (Zofran) 4 mg PRN Q8HRS PRN IV NAUSEA/VOMITING; Start 12/24/16 at 15:00; Stop 12/25/16 at 14:59; Status DC Fentanyl Citrate (Fentanyl 2ml Vial) 50 mcg PRN Q2HR PRN IV PAIN; Start at 15:00; Stop 12/24/16 at 19:43; Status DC Ceftriaxone Sodium 1 gm/ Sodium Chloride 50 ml @ 100 mls/hr Q24H IV ; Start at 15:00; Stop 12/25/16 at 15:00; Status DC Ceftriaxone Sodium 50 ml @ 100 mls/hr 1X ONCE IV Last administered on 15:15; Start 12/24/16 at 15:00; Stop 12/24/16 at 15:29; Status DC Tamsulosin HCl (Flomax) 0.4 mg DAILY PO Last administered on 12/26/16 08:23; Start 12/24/16 at 17:00 Ondansetron HCl (Zofran) 4 mg PRN Q6HRS PRN IV NAUSEA/VOMITING; Start 12/25/16 at 07:00; Stop 12/25/16 at 23:00; Status DC Fentanyl Citrate (Fentanyl 2ml Vial) 25 mcg PRN Q5MIN PRN IV MILD PAIN; Start 12/25/16 at 07:00; Stop 12/25/16 at 07:00; Status DC Fentanyl Citrate (Fentanyl 2ml Vial) 50 mcg PRN Q5MIN PRN IV MODERATE PAIN; Start 12/25/16 at 07:00; Stop 12/25/16 at 07:00; Status DC Morphine Sulfate 1 mg PRN Q10MIN PRN IV SEVERE PAIN; Start 12/25/16 at 07:00; Stop 12/25/16 at 07:00; Status DC Ringer's Solution 1,000 ml @ 0 mls/hr Q0M IV ; Start 12/25/16 at 07:00; Stop at 18:59; Status DC Lidocaine HCl 2 ml PRN 1X PRN ID PRIOR TO IV START; Start 12/25/16 at 07:00; Stop 12/26/16 at 06:59; Status DC Hydromorphone HCl (Dilaudid) 0.5 mg PRN Q10MIN PRN IV SEV PAIN, Second choice; Start 12/25/16 at 07:00; Stop 12/25/16 at 07:00; Status DC Prochlorperazine Edisylate (Compazine) 5 mg PACU PRN PRN IV NAUSEA, MRX1; Start 12/25/16 at 07:00; Stop 12/25/16 at 23:00; Status DC Amlodipine Besylate (Norvasc) 5 mg DAILY PO ; Start 12/25/16 at 09:00; Stop at 09:20; Status DC Aspirin (Children'S Aspirin) 81 mg DAILY PO Last administered on 12/26/16 08: 22; Start 12/25/16 at 09:00 Carvedilol (Coreg) 12.5 mg BIDWMEALS PO Last administered on 12/26/16 08:23; Start 12/24/16 at 21:00 Metformin HCl (Glucophage) 500 mg BIDWMEALS PO Last administered on 12/26/16 08:22; Start 12/25/16 at 08:00 Losartan Potassium (Cozaar) 100 mg DAILY PO Last administered on 12/26/16 08: 22; Start 12/25/16 at 09:00 Atorvastatin Calcium (Lipitor) 10 mg QHS PO Last administered on 12/25/16 21: 53; Start 12/24/16 at 21:00 Hydrochlorothiazide (Hydrodiuril) 25 mg DAILY PO ; Start 12/25/16 at 09:00; Stop 12/25/16 at 09:20; Status DC Morphine Sulfate 1 mg PRN Q1HR PRN IV SEVERE PAIN Last administered on 21:28; Start 12/24/16 at 20:00 Lidocaine HCl (Glydo (Lidocaine) Jelly) 6 joey STK-MED ONCE .ROUTE Last administered on 12/25/16 10:08; Start 12/25/16 at 06:36; Stop 12/25/16 at 06:37 ; Status DC Iohexol (Omnipaque 300 Mg/ml) 50 ml STK-MED ONCE .ROUTE Last administered on 09:56; Start 12/25/16 at 06:36; Stop 12/25/16 at 06:37; Status DC Lidocaine HCl (Glydo (Lidocaine) Jelly) 6 joey STK-MED ONCE .ROUTE Last administered on 12/25/16 10:08; Start 12/25/16 at 06:36; Stop 12/25/16 at 06:37 ; Status DC Dextrose/Lactated Ringer's 1,000 ml @ 100 mls/hr Q10H IV Last administered on 12/25/16 09:00; Start 12/25/16 at 08:45; Stop 12/25/16 at 22:01; Status DC Levofloxacin/ Dextrose 50 ml @ 50 mls/hr 1X ONCE IV Last administered on 09:43; Start 12/25/16 at 09:15; Stop 12/25/16 at 10:14; Status DC Phenylephrine HCl 1 mg STK-MED ONCE IV ; Start 12/25/16 at 09:46; Stop 12/25/16 at 09:47; Status DC Sodium Chloride 1,000 ml @ 100 mls/hr Q10H IV Last administered on 12/25/16 12:19; Start 12/25/16 at 11:30 Meropenem 500 mg/ Sodium Chloride 50 ml @ 100 mls/hr Q6HRS IV Last administered on 12/26/16 08:18; Start 12/26/16 at 07:00 Active Scripts Active Reported Carvedilol 12.5 Mg Tablet 1 Tab PO BID Aspirin 81 Mg Tab.chew 1 Tab PO DAILY Losartan-Hctz 100-25 Mg Tab (Losartan/Hydrochlorothiazide) 1 Each Tablet 1 Tab PO DAILY Amlodipine Besylate 5 Mg Tablet 5 Mg PO DAILY Pravastatin Sodium 40 Mg Tablet 1 Tab PO QHS Metformin Hcl 500 Mg Tablet 500 Mg PO BIDWMEALS Vitals/I & O Vital Sign - Last 24 Hours 12/25/16 12/25/16 12/25/16 12/25/16 10:17 10:30 10:32 10:47 Temp 97.6 99.1 97.6 99.1 Pulse 80 74 80 Resp 16 18 16 B/P (MAP) 97/53 107/57 89/54 Pulse Ox 95 96 94 O2 Delivery Nasal Cannula Nasal Cannula Nasal Cannula Nasal Cannula O2 Flow Rate 2 2 2 2 12/25/16 12/25/16 12/25/16 12/25/16 11:02 11:23 11:30 11:45 Pulse 73 70 71 72 Resp 16 17 B/P (MAP) 93/45 107/56 (73) 100/49 (66) 97/50 (66) Pulse Ox 96 94 O2 Delivery Nasal Cannula Nasal Cannula Nasal Cannula Nasal Cannula O2 Flow Rate 2 2.0 2.5 2.5 12/25/16 12/25/16 12/25/16 12/25/16 12:00 12:15 12:45 13:15 Pulse 65 70 89 78 B/P (MAP) 88/49 (62) 96/50 (65) 93/59 (70) 82/38 (53) O2 Delivery Nasal Cannula Nasal Cannula Nasal Cannula Nasal Cannula O2 Flow Rate 2.5 2.5 2.5 2.5 12/25/16 12/25/16 12/25/16 12/25/16 14:15 14:44 17:00 19:00 Temp 98.1 98.2 98.1 98.2 Pulse 78 84 84 64 Resp 17 18 B/P (MAP) 100/52 (68) 91/50 (64) 91/50 124/58 (80) Pulse Ox 92 90 O2 Delivery Nasal Cannula Nasal Cannula Nasal Cannula O2 Flow Rate 2.5 2.5 2.5 12/25/16 12/25/16 12/26/16 12/26/16 20:00 23:00 03:00 07:00 Temp 98.4 98.7 98.1 98.4 98.7 98.1 Pulse 76 68 63 Resp 18 20 18 B/P (MAP) 90/44 (59) 129/65 (86) 101/49 (66) Pulse Ox 90 91 95 O2 Delivery Nasal Cannula Nasal Cannula Nasal Cannula Nasal Cannula O2 Flow Rate 2.5 2.5 2.5 2.5 12/26/16 12/26/16 12/26/16 08:00 08:22 08:23 Pulse 63 63 B/P (MAP) 101/49 101/49 O2 Delivery Nasal Cannula O2 Flow Rate 2.5 Intake and Output 12/25/16 12/25/16 12/26/16 15:00 23:00 07:00 Intake Total 650 ml 210 ml 750 ml Output Total 1350 ml Balance 650 ml 210 ml -600 ml VERÓNICA FERNANDEZ MD December 26, 2016 10:10
--- NOTE | 2016-12-26 10:44 | PDOC ---
PROGRESS NOTES Subjective Subjective Pt. feeling well Objective Objective Vital Signs Date Time Temp Pulse Resp B/P (MAP) Pulse Ox O2 Delivery O2 Flow Rate FiO2 12/26/16 08:23 63 101/49 12/26/16 08:00 Nasal Cannula 2.5 12/26/16 07:00 98.1 18 95 98.1 Intake and Output 12/26/16 07:00 Intake Total 1610 ml Output Total 1350 ml Balance 260 ml Intake Oral 960 ml IV Total 650 ml Output Urine Total 1350 ml # Voids 3 Physical Exam Physical Exam No pain or tenderness afeb. 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 Problems Medical Problems: (1) Intractable pain Status: Acute (2) Right ureteral stone Status: Acute Comment Review of Relevant I have reviewed the following items jewell (where applicable) has been applied. Labs Laboratory Tests Test 12/24/16 13:45 12/24/16 14:15 12/25/16 03:45 12/25/16 09:18 Urine Color Yellow Urine Clarity Clear Urine pH 8.0 Urine Specific [place] 1.010 Urine Protein Negative mg/dL (NEG-TRACE) Urine Glucose (UA) Negative mg/dL (NEG) Urine Ketones (Stick) Negative mg/dL (NEG) Urine Blood Large (NEG) Urine Nitrite Negative (NEG) Urine Bilirubin Negative (NEG) Urine Urobilinogen Dipstick 0.2 mg/dL (0.2 mg/dL) Urine Leukocyte Esterase Large (NEG) Urine RBC 11-20 /HPF (0-2) Urine WBC 5-10 /HPF (0-4) Urine Squamous Epithelial Cells Occ /LPF Urine Bacteria Few /HPF (0-FEW) White Blood Count 4.4 x10^3/uL (4.0-11.0) 24.8 x10^3/uL (4.0-11.0) Red Blood Count 4.96 x10^6/uL (3.50-5.40) 4.53 x10^6/uL (3.50-5.40) Hemoglobin 15.0 g/dL (12.0-15.5) 13.5 g/dL (12.0-15.5) Hematocrit 43.0 % (36.0-47.0) 39.5 % (36.0-47.0) Mean Corpuscular Volume 87 fL (79-100) 87 fL (79-100) Mean Corpuscular Hemoglobin 30 pg (25-35) 30 pg (25-35) Mean Corpuscular Hemoglobin Concent 35 g/dL (31-37) 34 g/dL (31-37) Red Cell Distribution Width 13.7 % (11.5-14.5) 13.7 % (11.5-14.5) Platelet Count 151 x10^3/uL (140-400) 99 x10^3/uL (140-400) Neutrophils (%) (Auto) 87 % (31-73) 90 % (31-73) Lymphocytes (%) (Auto) 9 % (24-48) 2 % (24-48) Monocytes (%) (Auto) 2 % (0-9) 7 % (0-9) Eosinophils (%) (Auto) 2 % (0-3) 0 % (0-3) Basophils (%) (Auto) 1 % (0-3) 0 % (0-3) Neutrophils # (Auto) 3.8 x10^3uL (1.8-7.7) 22.3 x10^3uL (1.8-7.7) Lymphocytes # (Auto) 0.4 x10^3/uL (1.0-4.8) 0.6 x10^3/uL (1.0-4.8) Monocytes # (Auto) 0.1 x10^3/uL (0.0-1.1) 1.8 x10^3/uL (0.0-1.1) Eosinophils # (Auto) 0.1 x10^3/uL (0.0-0.7) 0.0 x10^3/uL (0.0-0.7) Basophils # (Auto) 0.0 x10^3/uL (0.0-0.2) 0.0 x10^3/uL (0.0-0.2) Prothrombin Time 14.2 SEC (11.7-14.0) Prothromb Time International Ratio 1.2 (0.8-1.1) Activated Partial Thromboplast Time 28 SEC (24-38) Sodium Level 138 mmol/L (136-145) 138 mmol/L (136-145) Potassium Level 3.4 mmol/L (3.5-5.1) 3.4 mmol/L (3.5-5.1) Chloride Level 99 mmol/L (98-107) 100 mmol/L (98-107) Carbon Dioxide Level 33 mmol/L (21-32) 28 mmol/L (21-32) Anion Gap 6 (6-14) 10 (6-14) Blood Urea Nitrogen 20 mg/dL (7-20) 34 mg/dL (7-20) Creatinine 1.0 mg/dL (0.6-1.0) 1.7 mg/dL (0.6-1.0) Estimated GFR (Cockcroft-Gault) 53.2 28.8 BUN/Creatinine Ratio 20 (6-20) Glucose Level 156 mg/dL (70-99) 166 mg/dL (70-99) Calcium Level 9.4 mg/dL (8.5-10.1) 9.6 mg/dL (8.5-10.1) Magnesium Level 1.6 mg/dL (1.8-2.4) Total Bilirubin 0.7 mg/dL (0.2-1.0) Aspartate Amino Transf (AST/SGOT) 21 U/L (15-37) Alanine Aminotransferase (ALT/SGPT) 22 U/L (14-59) Alkaline Phosphatase 54 U/L (46-116) Total Protein 7.5 g/dL (6.4-8.2) Albumin 3.5 g/dL (3.4-5.0) Albumin/Globulin Ratio 0.9 (1.0-1.7) Lipase 83 U/L (73-393) Segmented Neutrophils % 53 % (35-66) Band Neutrophils % 39 % (0-9) Lymphocytes % 1 % (24-48) Monocytes % 7 % (0-10) Platelet Estimate Decreased (ADEQUATE) Glucose (Fingerstick) 152 mg/dL (70-99) Test 12/25/16 10:37 12/26/16 04:40 Glucose (Fingerstick) 145 mg/dL (70-99) White Blood Count 26.1 x10^3/uL (4.0-11.0) Red Blood Count 4.47 x10^6/uL (3.50-5.40) Hemoglobin 13.3 g/dL (12.0-15.5) Hematocrit 38.8 % (36.0-47.0) Mean Corpuscular Volume 87 fL (79-100) Mean Corpuscular Hemoglobin 30 pg (25-35) Mean Corpuscular Hemoglobin Concent 34 g/dL (31-37) Red Cell Distribution Width 13.7 % (11.5-14.5) Platelet Count 99 x10^3/uL (140-400) Neutrophils (%) (Auto) 91 % (31-73) Lymphocytes (%) (Auto) 4 % (24-48) Monocytes (%) (Auto) 6 % (0-9) Eosinophils (%) (Auto) 0 % (0-3) Basophils (%) (Auto) 0 % (0-3) Neutrophils # (Auto) 23.6 x10^3uL (1.8-7.7) Lymphocytes # (Auto) 0.9 x10^3/uL (1.0-4.8) Monocytes # (Auto) 1.5 x10^3/uL (0.0-1.1) Eosinophils # (Auto) 0.0 x10^3/uL (0.0-0.7) Basophils # (Auto) 0.0 x10^3/uL (0.0-0.2) Sodium Level 139 mmol/L (136-145) Potassium Level 3.2 mmol/L (3.5-5.1) Chloride Level 102 mmol/L (98-107) Carbon Dioxide Level 28 mmol/L (21-32) Anion Gap 9 (6-14) Blood Urea Nitrogen 44 mg/dL (7-20) Creatinine 1.2 mg/dL (0.6-1.0) Estimated GFR (Cockcroft-Gault) 43.1 Glucose Level 137 mg/dL (70-99) Calcium Level 9.1 mg/dL (8.5-10.1) Laboratory Tests Test 12/26/16 04:40 White Blood Count 26.1 x10^3/uL (4.0-11.0) Red Blood Count 4.47 x10^6/uL (3.50-5.40) Hemoglobin 13.3 g/dL (12.0-15.5) Hematocrit 38.8 % (36.0-47.0) Mean Corpuscular Volume 87 fL (79-100) Mean Corpuscular Hemoglobin 30 pg (25-35) Mean Corpuscular Hemoglobin Concent 34 g/dL (31-37) Red Cell Distribution Width 13.7 % (11.5-14.5) Platelet Count 99 x10^3/uL (140-400) Neutrophils (%) (Auto) 91 % (31-73) Lymphocytes (%) (Auto) 4 % (24-48) Monocytes (%) (Auto) 6 % (0-9) Eosinophils (%) (Auto) 0 % (0-3) Basophils (%) (Auto) 0 % (0-3) Neutrophils # (Auto) 23.6 x10^3uL (1.8-7.7) Lymphocytes # (Auto) 0.9 x10^3/uL (1.0-4.8) Monocytes # (Auto) 1.5 x10^3/uL (0.0-1.1) Eosinophils # (Auto) 0.0 x10^3/uL (0.0-0.7) Basophils # (Auto) 0.0 x10^3/uL (0.0-0.2) Sodium Level 139 mmol/L (136-145) Potassium Level 3.2 mmol/L (3.5-5.1) Chloride Level 102 mmol/L (98-107) Carbon Dioxide Level 28 mmol/L (21-32) Anion Gap 9 (6-14) Blood Urea Nitrogen 44 mg/dL (7-20) Creatinine 1.2 mg/dL (0.6-1.0) Estimated GFR (Cockcroft-Gault) 43.1 Glucose Level 137 mg/dL (70-99) Calcium Level 9.1 mg/dL (8.5-10.1) Microbiology 12/24/16 Urine Culture - Final, Complete 12/24/16 Urine Culture Result 1 (FAY) - Final, Complete 12/24/16 Antimicrobic Susceptibility - Final, Complete Medications Current Medications Ondansetron HCl (Zofran) 8 mg 1X ONCE IV Last administered on 12/24/16t 14:06 ; Start 12/24/16 at 13:45; Stop 12/24/16 at 13:55; Status DC Morphine Sulfate 5 mg 1X ONCE IV Last administered on 12/24/16 14:05; Start 12/24/16 at 13:45; Stop 12/24/16 at 13:55; Status DC Ketorolac Tromethamine (Toradol) 15 mg 1X ONCE IV Last administered on 14:06; Start 12/24/16 at 13:45; Stop 12/24/16 at 13:55; Status DC Ondansetron HCl (Zofran) 4 mg PRN Q8HRS PRN IV NAUSEA/VOMITING; Start 12/24/16 at 15:00; Stop 12/25/16 at 14:59; Status DC Fentanyl Citrate (Fentanyl 2ml Vial) 50 mcg PRN Q2HR PRN IV PAIN; Start at 15:00; Stop 12/24/16 at 19:43; Status DC Ceftriaxone Sodium 1 gm/ Sodium Chloride 50 ml @ 100 mls/hr Q24H IV ; Start at 15:00; Stop 12/25/16 at 15:00; Status DC Ceftriaxone Sodium 50 ml @ 100 mls/hr 1X ONCE IV Last administered on 15:15; Start 12/24/16 at 15:00; Stop 12/24/16 at 15:29; Status DC Tamsulosin HCl (Flomax) 0.4 mg DAILY PO Last administered on 12/26/16 08:23; Start 12/24/16 at 17:00 Ondansetron HCl (Zofran) 4 mg PRN Q6HRS PRN IV NAUSEA/VOMITING; Start 12/25/16 at 07:00; Stop 12/25/16 at 23:00; Status DC Fentanyl Citrate (Fentanyl 2ml Vial) 25 mcg PRN Q5MIN PRN IV MILD PAIN; Start 12/25/16 at 07:00; Stop 12/25/16 at 07:00; Status DC Fentanyl Citrate (Fentanyl 2ml Vial) 50 mcg PRN Q5MIN PRN IV MODERATE PAIN; Start 12/25/16 at 07:00; Stop 12/25/16 at 07:00; Status DC Morphine Sulfate 1 mg PRN Q10MIN PRN IV SEVERE PAIN; Start 12/25/16 at 07:00; Stop 12/25/16 at 07:00; Status DC Ringer's Solution 1,000 ml @ 0 mls/hr Q0M IV ; Start 12/25/16 at 07:00; Stop at 18:59; Status DC Lidocaine HCl 2 ml PRN 1X PRN ID PRIOR TO IV START; Start 12/25/16 at 07:00; Stop 12/26/16 at 06:59; Status DC Hydromorphone HCl (Dilaudid) 0.5 mg PRN Q10MIN PRN IV SEV PAIN, Second choice; Start 12/25/16 at 07:00; Stop 12/25/16 at 07:00; Status DC Prochlorperazine Edisylate (Compazine) 5 mg PACU PRN PRN IV NAUSEA, MRX1; Start 12/25/16 at 07:00; Stop 12/25/16 at 23:00; Status DC Amlodipine Besylate (Norvasc) 5 mg DAILY PO ; Start 12/25/16 at 09:00; Stop at 09:20; Status DC Aspirin (Children'S Aspirin) 81 mg DAILY PO Last administered on 12/26/16 08: 22; Start 12/25/16 at 09:00 Carvedilol (Coreg) 12.5 mg BIDWMEALS PO Last administered on 12/26/16 08:23; Start 12/24/16 at 21:00 Metformin HCl (Glucophage) 500 mg BIDWMEALS PO Last administered on 12/26/16 08:22; Start 12/25/16 at 08:00 Losartan Potassium (Cozaar) 100 mg DAILY PO Last administered on 12/26/16 08: 22; Start 12/25/16 at 09:00 Atorvastatin Calcium (Lipitor) 10 mg QHS PO Last administered on 12/25/16 21: 53; Start 12/24/16 at 21:00 Hydrochlorothiazide (Hydrodiuril) 25 mg DAILY PO ; Start 12/25/16 at 09:00; Stop 12/25/16 at 09:20; Status DC Morphine Sulfate 1 mg PRN Q1HR PRN IV SEVERE PAIN Last administered on 21:28; Start 12/24/16 at 20:00 Lidocaine HCl (Glydo (Lidocaine) Jelly) 6 joey STK-MED ONCE .ROUTE Last administered on 12/25/16 10:08; Start 12/25/16 at 06:36; Stop 12/25/16 at 06:37 ; Status DC Iohexol (Omnipaque 300 Mg/ml) 50 ml STK-MED ONCE .ROUTE Last administered on 09:56; Start 12/25/16 at 06:36; Stop 12/25/16 at 06:37; Status DC Lidocaine HCl (Glydo (Lidocaine) Jelly) 6 joey STK-MED ONCE .ROUTE Last administered on 12/25/16 10:08; Start 12/25/16 at 06:36; Stop 12/25/16 at 06:37 ; Status DC Dextrose/Lactated Ringer's 1,000 ml @ 100 mls/hr Q10H IV Last administered on 12/25/16 09:00; Start 12/25/16 at 08:45; Stop 12/25/16 at 22:01; Status DC Levofloxacin/ Dextrose 50 ml @ 50 mls/hr 1X ONCE IV Last administered on 09:43; Start 12/25/16 at 09:15; Stop 12/25/16 at 10:14; Status DC Phenylephrine HCl 1 mg STK-MED ONCE IV ; Start 12/25/16 at 09:46; Stop 12/25/16 at 09:47; Status DC Sodium Chloride 1,000 ml @ 100 mls/hr Q10H IV Last administered on 12/25/16 12:19; Start 12/25/16 at 11:30 Meropenem 500 mg/ Sodium Chloride 50 ml @ 100 mls/hr Q6HRS IV Last administered on 12/26/16 08:18; Start 12/26/16 at 07:00 Active Scripts Active Reported Carvedilol 12.5 Mg Tablet 1 Tab PO BID Aspirin 81 Mg Tab.chew 1 Tab PO DAILY Losartan-Hctz 100-25 Mg Tab (Losartan/Hydrochlorothiazide) 1 Each Tablet 1 Tab PO DAILY Amlodipine Besylate 5 Mg Tablet 5 Mg PO DAILY Pravastatin Sodium 40 Mg Tablet 1 Tab PO QHS Metformin Hcl 500 Mg Tablet 500 Mg PO BIDWMEALS Vitals/I & O Vital Sign - Last 24 Hours 12/25/16 12/25/16 12/25/16 12/25/16 10:47 11:02 11:23 11:30 Temp 99.1 99.1 Pulse 80 73 70 71 Resp 16 16 17 B/P (MAP) 89/54 93/45 107/56 (73) 100/49 (66) Pulse Ox 94 96 94 O2 Delivery Nasal Cannula Nasal Cannula Nasal Cannula Nasal Cannula O2 Flow Rate 2 2 2.0 2.5 12/25/16 12/25/16 12/25/16 12/25/16 11:45 12:00 12:15 12:45 Pulse 72 65 70 89 B/P (MAP) 97/50 (66) 88/49 (62) 96/50 (65) 93/59 (70) O2 Delivery Nasal Cannula Nasal Cannula Nasal Cannula Nasal Cannula O2 Flow Rate 2.5 2.5 2.5 2.5 12/25/16 12/25/16 12/25/16 12/25/16 13:15 14:15 14:44 17:00 Temp 98.1 98.1 Pulse 78 78 84 84 Resp 17 B/P (MAP) 82/38 (53) 100/52 (68) 91/50 (64) 91/50 Pulse Ox 92 O2 Delivery Nasal Cannula Nasal Cannula Nasal Cannula O2 Flow Rate 2.5 2.5 2.5 12/25/16 12/25/16 12/25/16 12/26/16 19:00 20:00 23:00 03:00 Temp 98.2 98.4 98.7 98.2 98.4 98.7 Pulse 64 76 68 Resp 18 18 20 B/P (MAP) 124/58 (80) 90/44 (59) 129/65 (86) Pulse Ox 90 90 91 O2 Delivery Nasal Cannula Nasal Cannula Nasal Cannula Nasal Cannula O2 Flow Rate 2.5 2.5 2.5 2.5 12/26/16 12/26/16 12/26/16 12/26/16 07:00 08:00 08:22 08:23 Temp 98.1 98.1 Pulse 63 63 63 Resp 18 B/P (MAP) 101/49 (66) 101/49 101/49 Pulse Ox 95 O2 Delivery Nasal Cannula Nasal Cannula O2 Flow Rate 2.5 2.5 Intake and Output 12/25/16 12/25/16 12/26/16 15:00 23:00 07:00 Intake Total 650 ml 210 ml 750 ml Output Total 1350 ml Balance 650 ml 210 ml -600 ml ISABELLA HAMMOND MD December 26, 2016 10:44
[2016-12-26 11:00] VITALS: BP 121/64
--- NOTE | 2016-12-26 12:06 | PDOC ---
Provider Note Provider Note dictated JUAN EGAN MD December 26, 2016 12:06
--- NOTE | 2016-12-26 13:11 | CONS ---
DATE OF CONSULTATION: ATTENDING PHYSICIAN: Trang Wylie MD. REASON FOR CONSULTATION: Lung nodules. HISTORY OF PRESENT ILLNESS: The patient is a pleasant 81-year-old female who is a lifetime nonsmoker. She presented to the hospital with right flank pain and was found to have renal stones. The CT abdomen and pelvis was performed and which was reviewed by me. It was dated 12/24/2016. The patient has tiny lung nodules that were seen in the right lower chest, but the most of them are subpleural and about 4 mm in size in the right middle and right lower lobe. She has no history of weight loss. She has no known cancers. She was last mammogram done about a year ago which was within normal limits per the patient's history. I have been asked to see her for further evaluation. PAST MEDICAL HISTORY: Significant for diabetes, hypertension, and hyperlipidemia. PAST SURGICAL HISTORY: Hysterectomy. SOCIAL HISTORY: Nonsmoker and nonalcoholic. ALLERGIES: None. CURRENT MEDICATIONS: Reviewed as listed in the MRAD. REVIEW OF SYSTEMS: Twelve-point system obtained. Pertinent positives discussed in my history of present illness, otherwise noncontributory. All systems that were negative were reviewed as well. PHYSICAL EXAMINATION: VITAL SIGNS: Reviewed. NECK: Supple. LUNGS: Clear. CARDIOVASCULAR: Regular rate and rhythm. ABDOMEN: Soft, mildly tender in the right lower quadrant. EXTREMITIES: With no pitting edema. IMPRESSION: 1. Tiny subpleural nodules seen in the right middle and right lower lobe. This patient is a lifetime nonsmoker and has no known cancers. These nodules are probably noncalcified granulomas. I will obtain a full CT chest to rule out any other larger size nodules. From pulmonary standpoint, I would recommend repeating a CT chest in six months. Her PCP is Dr. Moises Sandoval and the patient will arrange CT follow with him. 2. Renal stone, status post cystoscopy and right retrograde pyelogram and right ureteral stent placement. 3. Nonsmoker. RECOMMENDATIONS: 1. Noncontrast CT chest. 2. If there are no larger size nodules in the upper chest, then I would recommend repeat CT chest in six months. She can be followed up by her PCP Dr. Moises Sandoval who can arrange ct chest. The patient is agreeable with that plan. Further recommendations to follow. JUAN EGAN MD DR: APOLONIA/radha JOB#: [id number] / [id number] CHRIS
--- NOTE | 2016-12-26 13:27 | RAD ---
Examination: CT chest with contrast History: History of lung nodules. Comparison: None available Technique: Axial CT images of the chest were performed without contrast PQRS Compliance Statement: One or more of the following individualized dose reduction techniques were utilized for this examination: 1. Automated exposure control 2. Adjustment of the mA and/or kV according to patient size 3. Use of iterative reconstruction technique Findings: The visualized thyroid gland grossly appears unremarkable. Mild cardiomegaly identified. Diffuse coronary artery calcifications identified. Trace pericardial effusion. No radiologically significant mediastinal lymphadenopathy is noted. Tiny 3 mm subpleural nodules identified in the right middle lobe, right lower lobe of the lung. There is a 5 mm nodule identified in the right lower lobe of the lung, best visualized on series 2 image #32. Thin-walled cyst identified in the right upper lobe of the lung. Linear bibasal lung consolidation changes identified right greater than left likely pneumonia or atelectasis. Small subpleural 5 mm nodule identified in the lingula of the left lung. The visualized noncontrasted liver, spleen, adrenals grossly appears unremarkable. The stomach is mildly distended. Moderate degenerative changes thoracic spine. Impression: 1. Bibasal lung linear consolidation changes identified likely pneumonia or atelectasis. Follow-up to resolution. 2. Multiple small subpleural pulmonary nodules identified in the right middle lobe, right lower lobe, left upper lobe of the lung the largest measuring 5 mm in the right lower lobe. Follow-up Fleischner Society guidelines. 3. Coronary artery calcifications. Fleischner Society guidelines: low risk patients: no follow-up needed high risk patients: optional CT at 12 months.
[2016-12-26 15:24] VITALS: BP 118/57
[2016-12-26 19:33] VITALS: BP 141/69
[2016-12-26] MEDS: ATORVASTATIN CALCIUM 10 MG TABLET. PO SCH (21:42)
[2016-12-26 23:00] VITALS: BP 135/64
--- NOTE | 2016-12-27 01:48 | CONS ---
DATE OF CONSULTATION: 12/26/2016 ROOM: 658. REQUESTING PHYSICIAN: Dr. Alexandra. REASON FOR CONSULTATION: UTI and stone, elevated white blood cell count. HISTORY OF PRESENT ILLNESS: The patient is a very pleasant 81-year-old female who lives by herself. She lost her last May. She does have a history of kidney stones, but has not had problems with urinary tract infections or any infections recently and has not been on any antimicrobials prior to coming to the hospital. ____ she awakened, was in her normal state of health, she ate some yogurt about 10 in the morning and then about 11:00 in the morning, she began to have abdominal pain started on her right flank area, a little bit in the back, but then worsened and progressed to her groin area. She states she did not feel too well, but was unable to clarify what she meant by that. She denies having any fevers or chills. She denies having any nausea or vomiting. She states she has had some cloudy urine for the past couple of weeks, but no urinary symptoms. She has not had any bloody stools or bloody urine. Later in the morning, she vomited. She did call her son who then brought her to [facility] on 12/24/2016. White blood cell count was 4.4, but yesterday it increased to 24.8. She underwent a CT scan of the abdomen and pelvis, which showed moderate right-sided hydronephrosis and hydroureter with a 4 mm calculus in the distal right ureter, also had some inflammation with some questionable pyelonephritis. She also had some gallstones in the gallbladder. Yesterday, I did discuss with Dr. Alexandra. She had received ceftriaxone prior to admission as well as ____ yesterday and she was given a dose of levofloxacin as he had taken her down to surgery yesterday. She underwent a cystoscopy with a right retrograde pyelogram and a right ureteral stent placement. As she was in Surgery, I was unable to see her yesterday, but to review the chart. This morning, I was contacted and was informed that her white blood cell count increased up to 26.1 and therefore changed her antibiotics to meropenem this morning. This morning, the patient states she is feeling somewhat better, although she did feel a little bit nauseated this morning. She did not have her blood sugar checked, but she does also complain of some acid reflux that has been worsening over the past several months. She states she has a little bit of an appetite today. She has no headaches, no change in vision, sore throat or cough. No chest pain. Abdominal pain is a little bit better. No rashes. PAST MEDICAL HISTORY: Positive for previous kidney stones, history of diabetes, hypertension and hyperlipidemia. She has had the above-mentioned hernia. Also history of shoulder replacement, hysterectomy and back surgery. REVIEW OF SYSTEMS: Otherwise negative except as mentioned above. ALLERGIES: There are no known drug allergies. SOCIAL HISTORY: She is a . No tobacco or alcohol. She lives by herself. FAMILY HISTORY: Positive for kidney stones in her kids as well as her had kidney stones. CURRENT MEDICATIONS: Again, she received ceftriaxone as well as levofloxacin, meropenem was started this morning. She is on aspirin, Lipitor, Coreg, Cozaar, metformin, and Flomax. Other meds are available and reviewed in the chart. PHYSICAL EXAMINATION: VITAL SIGNS: She is afebrile. Temperature is 98.1, pulse 63, respirations 18, blood pressure 101/49, satting 95% on 2.5 liters. CONSTITUTIONAL: She is very pleasant. She is cooperative. She is in no acute distress. She is lying in bed, smiling. HEENT: Pupils are equal and reactive. Normal conjunctivae. Oral cavity, oropharynx is clear. NECK: Supple with no JVD. LUNGS: Clear to auscultation bilaterally. HEART: S1, S2. ABDOMEN: Obese, soft, nontender, nondistended, no guarding or rebound. EXTREMITIES: Without clubbing, cyanosis or gross edema. SKIN: Warm to touch without signs of any rash. NEUROLOGIC: She is nonfocal, appropriate. LABORATORY DATA: White count today 26.1, hemoglobin 13.3, platelets of 99, 91% neutrophils. She did have 39% bands yesterday. Creatinine was 1.7 yesterday, today is 1.2. Her glucose is 137 this morning. She had normal liver function tests and normal lipase on 12/24/2016. Urinalysis was concerning for urinary tract infection and again the culture is growing a Proteus species. I did discuss with micro this morning, it is resistant only to nitrofurantoin as well as tetracycline. IMPRESSION: 1. Proteus urinary tract infection present on admission likely pyelonephritis. 2. Leukocytosis secondary to an infection and possible postop, clinically she feels well. 3. Status post cystoscopy, right retrograde pyelogram and right ureteral stent placement on 12/25/2016. 4. Gastroesophageal reflux disease. 5. Diabetes. 6. Lung nodules on CT. RECOMMENDATIONS: Again, I did not see the patient on 12/25/2016, as she was in Surgery; however, did review and speak with Dr. Alexandra. She had received her Rocephin as well as levofloxacin preoperatively, so I did not make any antibiotic adjustments. This morning, I was contacted with elevation of her white blood cell count, I changed to meropenem. Cultures are not going to available until this morning. She has not grown up Proteus that was resistant to nitrofurantoin as well as tetracycline, but otherwise sensitive. However, at this point, I will continue meropenem ____ second gram-negative otto will appear in the culture, it may account for why her elevation in white blood cell count, although I am hoping this is more likely secondary to inflammation and post-procedure. We will follow up on labs. Follow up on cultures. She may benefit from Protonix or Pepcid. Follow up on the pulmonary nodules per her primary. Dr. Alexandra, thank you for allowing me to participate in the patient's care. If you have any questions, please do not hesitate to contact me. VICKY BAI MD DR: DANIELA/radha JOB#: [id number] / [id number]
[2016-12-27] MEDS: IV NORMAL SALINE 1000ML BAG 1,000 ML IV SCH ×4 (01:54→22:56)
[2016-12-27] MEDS: MEROPENEM 500 MG in IV NORMAL SALINE 50ML 50 ML IV SCH ×4 (01:54→17:18)
[2016-12-27 02:51] VITALS: BP 136/68
[2016-12-27 04:36] LABS: BASO # 0.1 x10^3/uL (0.0-0.2); BASO % 0 % (0-3); EOS % 0 % (0-3); HEMATOCRIT 38.7 % (36.0-47.0); HEMOGLOBIN 12.9 g/dL (12.0-15.5); LYMPH # 1.9 x10^3/uL (1.0-4.8); LYMPH % 10 % (24-48); MEAN CORPUSCULAR HEMOGLOBIN 30 pg (25-35); MEAN CORPUSCULAR HGB CONC 34 g/dL (31-37); MEAN CORPUSCULAR VOLUME 89 fL (79-100); MONO % 4 % (0-9); NEUT % 86 % (31-73); PLATELET COUNT 105 x10^3/uL (140-400); RED BLOOD COUNT 4.36 x10^6/uL (3.50-5.40); RED CELL DISTRIBUTION WIDTH 13.8 % (11.5-14.5)
[2016-12-27 04:47] LABS: CALCIUM 8.8 mg/dL (8.5-10.1); CREATININE 0.8 mg/dL (0.6-1.0); GFR 68.8; POTASSIUM 3.6 mmol/L (3.5-5.1)
[2016-12-27] MEDS: CARVEDILOL 12.5 MG TABLET. PO SCH ×3 (08:00→17:18)
[2016-12-27 08:13] VITALS: BP 150/72
[2016-12-27] MEDS: ASPIRIN CHEWABLE 81 MG TABLET. PO SCH (08:18)
[2016-12-27] MEDS: metFORMIN 500 MG TABLET PO SCH ×2 (08:18→17:18)
[2016-12-27] MEDS: TAMSULOSIN 0.4 MG CAP.ER.24H. PO SCH (08:19)
--- NOTE | 2016-12-27 08:19 | PDOC ---
Infectious Disease Note Subjective Subjective Feeling better. Slept well. + BM and passing urine ok Not much of an appetite yet ROS ROS GEN: Denies fevers, chills, sweats HEENT: Denies blurred vision, sore throat CV: Denies chest pain RESP: Denies shortness of air, cough GI: Denies n/v/d NEURO: Denies confusion, dizziness MSK: Denies weakness, joint pain/swelling Vital Sign Vital Signs Vital Signs Date Time Temp Pulse Resp B/P (MAP) Pulse Ox O2 Delivery O2 Flow Rate FiO2 12/27/16 08:13 97.7 58 18 150/72 (98) 93 Nasal Cannula 3.0 97.7 Physical Exam PHYSICAL EXAM GENERAL: NAD, Alert, sitting on side of bed HEENT: PERRL, OC/OP- clear NECK: Supple, no JVD, no LN LUNGS: Clear, on 02 HEART: S1S2, no gallop, no murmur ABD: Soft, NT, no organomegaly, no rebound, mild obese EXT: No edema, no cyanosis 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, oriented x 3, no focal neurologic deficit SKIN: No rash IV: ok Labs Lab Laboratory Tests Test 12/27/16 04:05 White Blood Count 20.0 x10^3/uL (4.0-11.0) Red Blood Count 4.36 x10^6/uL (3.50-5.40) Hemoglobin 12.9 g/dL (12.0-15.5) Hematocrit 38.7 % (36.0-47.0) Mean Corpuscular Volume 89 fL (79-100) Mean Corpuscular Hemoglobin 30 pg (25-35) Mean Corpuscular Hemoglobin Concent 34 g/dL (31-37) Red Cell Distribution Width 13.8 % (11.5-14.5) Platelet Count 105 x10^3/uL (140-400) Neutrophils (%) (Auto) 86 % (31-73) Lymphocytes (%) (Auto) 10 % (24-48) Monocytes (%) (Auto) 4 % (0-9) Eosinophils (%) (Auto) 0 % (0-3) Basophils (%) (Auto) 0 % (0-3) Neutrophils # (Auto) 17.2 x10^3uL (1.8-7.7) Lymphocytes # (Auto) 1.9 x10^3/uL (1.0-4.8) Monocytes # (Auto) 0.8 x10^3/uL (0.0-1.1) Eosinophils # (Auto) 0.0 x10^3/uL (0.0-0.7) Basophils # (Auto) 0.1 x10^3/uL (0.0-0.2) Sodium Level 143 mmol/L (136-145) Potassium Level 3.6 mmol/L (3.5-5.1) Chloride Level 109 mmol/L (98-107) Carbon Dioxide Level 25 mmol/L (21-32) Anion Gap 9 (6-14) Blood Urea Nitrogen 32 mg/dL (7-20) Creatinine 0.8 mg/dL (0.6-1.0) Estimated GFR (Cockcroft-Gault) 68.8 Glucose Level 112 mg/dL (70-99) Calcium Level 8.8 mg/dL (8.5-10.1) Micro 12/24 Proteus mirabilis Greater than 100,000 colony forming units per mL ANTIMICROBIAL SUSCEPTIBILITY Final Comment S = Susceptible; I = Intermediate; R = Resistant P = Positive; N = Negative MICS are expressed in micrograms per mL Antibiotic RSLT#1 RSLT#2 RSLT#3 RSLT#4 Amoxicillin/Clavulanic Acid S Ampicillin S Cefepime S Ceftriaxone S Cefuroxime S Cephalothin S Ciprofloxacin S Ertapenem S Gentamicin S Levofloxacin S Nitrofurantoin R Piperacillin S Tetracycline R Tobramycin S Trimethoprim/Sulfa S Objective Assessment Proteus UTI - POA with likely pyelonephritis Leukocytosis - Sec to infection and ? post op - clinically she feels well. Better S/p Cystoscopy, right retrograde pyelogram, right ureteral stent placement.12/25 GERD DM Lung nodules on CT Plan Plan of Care Had been on appropriate abx prior to procedure but WBC increase so changed to Meropenem. May be Leukomoid reaction. Adjust based on improvement and f/u cults F/u CT results F/u labs/cults in am May benefit from Prontonix/Pepcid VICKY BAI MD December 27, 2016 08:19
[2016-12-27] MEDS: LOSARTAN POTASSIUM 50 MG TABLET. PO SCH (08:20)
--- NOTE | 2016-12-27 08:45 | RAD ---
Examination: CT of the abdomen pelvis without contrast History: History of follow-up renal stones, urinary tract infection, status post placement Comparison: 12/24/2016 Technique: Axial CT images of the abdomen pelvis were performed without contrast. Coronal and sagittal reformats were performed. PQRS Compliance Statement: One or more of the following individualized dose reduction techniques were utilized for this examination: 1. Automated exposure control 2. Adjustment of the mA and/or kV according to patient size 3. Use of iterative reconstruction technique Findings: Multiple subpleural nodules in the right lung similar to prior exam partially visualized. Bibasal lung consolidation changes right greater than left are similar. Small bilateral pleural effusions. No evidence of free air identified in the abdomen The evaluation of the bowel is limited due to lack of oral contrast. The evaluation of the solid organs is limited due to lack of IV contrast The liver, spleen, adrenals grossly appears unremarkable. The gallbladder is mildly distended. Multiple gallstones identified within the gallbladder. Interval placement of a right ureteral stent is identified which appears in place. The previously visualized distal ureteral calculus on the right is not clearly identified. Interval decrease in the right side hydronephrosis. There is minimal fat stranding identified about the right kidney and the proximal right ureter grossly similar to prior exam. The small bowel is nondilated. Fatty atrophic changes of the pancreas identified. Feces and gas noted throughout the colon Multiple colon diverticula identified Intrarenal collecting system calculi identified in the bilateral kidneys. Moderate degenerative changes identified in the visualized thoracal lumbar spine. Impression: 1. Interval placement of a right-sided ureteral stent in place. The previously visualized hydronephrosis has near completely resolved. The distal right ureteral calculus is not identified on today's examination. 2. Intrarenal collecting system calculi again identified. 3. Gallstones. 4. Bibasal lung consolidation changes likely pneumonia or atelectasis. Follow-up to resolution. Trace bilateral pleural effusions. 5. The right lung pulmonary nodules are similar.
--- NOTE | 2016-12-27 08:57 | PDOC ---
PROGRESS NOTES Subjective Subjective Pt. feeling better Objective Objective Vital Signs Date Time Temp Pulse Resp B/P (MAP) Pulse Ox O2 Delivery O2 Flow Rate FiO2 12/27/16 08:20 58 150/72 12/27/16 08:13 97.7 18 93 Nasal Cannula 3.0 97.7 Intake and Output 12/27/16 07:00 Intake Total 200 ml Output Total 700 ml Balance -500 ml Intake Oral 200 ml Output Urine Total 700 ml # Voids 1 Physical Exam Physical Exam ureteral stent in place [place] resolved WBC down to 20K Possible pneumonia or atelectasis Plan Plan of Care Continue to treat infections Allow lungs to recover Pt. will need right ureteroscopy and possible laser lithotripsy in 2-3 weeks. I will be out on leave for first 3 weeks of January Will have pt. f/u with other urologist in 1-2 weeks to plan for urological procedure in first half of January Problems Medical Problems: (1) Intractable pain Status: Acute (2) Right ureteral stone Status: Acute Comment Review of Relevant I have reviewed the following items jewell (where applicable) has been applied. Labs Laboratory Tests Test 12/25/16 09:18 12/25/16 10:37 12/26/16 04:40 12/27/16 04:05 Glucose (Fingerstick) 152 mg/dL (70-99) 145 mg/dL (70-99) White Blood Count 26.1 x10^3/uL (4.0-11.0) 20.0 x10^3/uL (4.0-11.0) Red Blood Count 4.47 x10^6/uL (3.50-5.40) 4.36 x10^6/uL (3.50-5.40) Hemoglobin 13.3 g/dL (12.0-15.5) 12.9 g/dL (12.0-15.5) Hematocrit 38.8 % (36.0-47.0) 38.7 % (36.0-47.0) Mean Corpuscular Volume 87 fL (79-100) 89 fL (79-100) Mean Corpuscular Hemoglobin 30 pg (25-35) 30 pg (25-35) Mean Corpuscular Hemoglobin Concent 34 g/dL (31-37) 34 g/dL (31-37) Red Cell Distribution Width 13.7 % (11.5-14.5) 13.8 % (11.5-14.5) Platelet Count 99 x10^3/uL (140-400) 105 x10^3/uL (140-400) Neutrophils (%) (Auto) 91 % (31-73) 86 % (31-73) Lymphocytes (%) (Auto) 4 % (24-48) 10 % (24-48) Monocytes (%) (Auto) 6 % (0-9) 4 % (0-9) Eosinophils (%) (Auto) 0 % (0-3) 0 % (0-3) Basophils (%) (Auto) 0 % (0-3) 0 % (0-3) Neutrophils # (Auto) 23.6 x10^3uL (1.8-7.7) 17.2 x10^3uL (1.8-7.7) Lymphocytes # (Auto) 0.9 x10^3/uL (1.0-4.8) 1.9 x10^3/uL (1.0-4.8) Monocytes # (Auto) 1.5 x10^3/uL (0.0-1.1) 0.8 x10^3/uL (0.0-1.1) Eosinophils # (Auto) 0.0 x10^3/uL (0.0-0.7) 0.0 x10^3/uL (0.0-0.7) Basophils # (Auto) 0.0 x10^3/uL (0.0-0.2) 0.1 x10^3/uL (0.0-0.2) Sodium Level 139 mmol/L (136-145) 143 mmol/L (136-145) Potassium Level 3.2 mmol/L (3.5-5.1) 3.6 mmol/L (3.5-5.1) Chloride Level 102 mmol/L (98-107) 109 mmol/L (98-107) Carbon Dioxide Level 28 mmol/L (21-32) 25 mmol/L (21-32) Anion Gap 9 (6-14) 9 (6-14) Blood Urea Nitrogen 44 mg/dL (7-20) 32 mg/dL (7-20) Creatinine 1.2 mg/dL (0.6-1.0) 0.8 mg/dL (0.6-1.0) Estimated GFR (Cockcroft-Gault) 43.1 68.8 Glucose Level 137 mg/dL (70-99) 112 mg/dL (70-99) Calcium Level 9.1 mg/dL (8.5-10.1) 8.8 mg/dL (8.5-10.1) Laboratory Tests Test 12/27/16 04:05 White Blood Count 20.0 x10^3/uL (4.0-11.0) Red Blood Count 4.36 x10^6/uL (3.50-5.40) Hemoglobin 12.9 g/dL (12.0-15.5) Hematocrit 38.7 % (36.0-47.0) Mean Corpuscular Volume 89 fL (79-100) Mean Corpuscular Hemoglobin 30 pg (25-35) Mean Corpuscular Hemoglobin Concent 34 g/dL (31-37) Red Cell Distribution Width 13.8 % (11.5-14.5) Platelet Count 105 x10^3/uL (140-400) Neutrophils (%) (Auto) 86 % (31-73) Lymphocytes (%) (Auto) 10 % (24-48) Monocytes (%) (Auto) 4 % (0-9) Eosinophils (%) (Auto) 0 % (0-3) Basophils (%) (Auto) 0 % (0-3) Neutrophils # (Auto) 17.2 x10^3uL (1.8-7.7) Lymphocytes # (Auto) 1.9 x10^3/uL (1.0-4.8) Monocytes # (Auto) 0.8 x10^3/uL (0.0-1.1) Eosinophils # (Auto) 0.0 x10^3/uL (0.0-0.7) Basophils # (Auto) 0.1 x10^3/uL (0.0-0.2) Sodium Level 143 mmol/L (136-145) Potassium Level 3.6 mmol/L (3.5-5.1) Chloride Level 109 mmol/L (98-107) Carbon Dioxide Level 25 mmol/L (21-32) Anion Gap 9 (6-14) Blood Urea Nitrogen 32 mg/dL (7-20) Creatinine 0.8 mg/dL (0.6-1.0) Estimated GFR (Cockcroft-Gault) 68.8 Glucose Level 112 mg/dL (70-99) Calcium Level 8.8 mg/dL (8.5-10.1) Microbiology 12/25/16 Urine Culture - Preliminary, Resulted 12/25/16 Urine Culture Result 1 (FAY) - Preliminary, Resulted Medications Current Medications Ondansetron HCl (Zofran) 8 mg 1X ONCE IV Last administered on 12/24/16 14:06 ; Start 12/24/16 at 13:45; Stop 12/24/16 at 13:55; Status DC Morphine Sulfate 5 mg 1X ONCE IV Last administered on 12/24/16 14:05; Start 12/24/16 at 13:45; Stop 12/24/16 at 13:55; Status DC Ketorolac Tromethamine (Toradol) 15 mg 1X ONCE IV Last administered on 14:06; Start 12/24/16 at 13:45; Stop 12/24/16 at 13:55; Status DC Ondansetron HCl (Zofran) 4 mg PRN Q8HRS PRN IV NAUSEA/VOMITING; Start 12/24/16 at 15:00; Stop 12/25/16 at 14:59; Status DC Fentanyl Citrate (Fentanyl 2ml Vial) 50 mcg PRN Q2HR PRN IV PAIN; Start at 15:00; Stop 12/24/16 at 19:43; Status DC Ceftriaxone Sodium 1 gm/ Sodium Chloride 50 ml @ 100 mls/hr Q24H IV ; Start at 15:00; Stop 12/25/16 at 15:00; Status DC Ceftriaxone Sodium 50 ml @ 100 mls/hr 1X ONCE IV Last administered on 15:15; Start 12/24/16 at 15:00; Stop 12/24/16 at 15:29; Status DC Tamsulosin HCl (Flomax) 0.4 mg DAILY PO Last administered on 12/27/16 08:19; Start 12/24/16 at 17:00 Ondansetron HCl (Zofran) 4 mg PRN Q6HRS PRN IV NAUSEA/VOMITING; Start 12/25/16 at 07:00; Stop 12/25/16 at 23:00; Status DC Fentanyl Citrate (Fentanyl 2ml Vial) 25 mcg PRN Q5MIN PRN IV MILD PAIN; Start 12/25/16 at 07:00; Stop 12/25/16 at 07:00; Status DC Fentanyl Citrate (Fentanyl 2ml Vial) 50 mcg PRN Q5MIN PRN IV MODERATE PAIN; Start 12/25/16 at 07:00; Stop 12/25/16 at 07:00; Status DC Morphine Sulfate 1 mg PRN Q10MIN PRN IV SEVERE PAIN; Start 12/25/16 at 07:00; Stop 12/25/16 at 07:00; Status DC Ringer's Solution 1,000 ml @ 0 mls/hr Q0M IV ; Start 12/25/16 at 07:00; Stop at 18:59; Status DC Lidocaine HCl 2 ml PRN 1X PRN ID PRIOR TO IV START; Start 12/25/16 at 07:00; Stop 12/26/16 at 06:59; Status DC Hydromorphone HCl (Dilaudid) 0.5 mg PRN Q10MIN PRN IV SEV PAIN, Second choice; Start 12/25/16 at 07:00; Stop 12/25/16 at 07:00; Status DC Prochlorperazine Edisylate (Compazine) 5 mg PACU PRN PRN IV NAUSEA, MRX1; Start 12/25/16 at 07:00; Stop 12/25/16 at 23:00; Status DC Amlodipine Besylate (Norvasc) 5 mg DAILY PO ; Start 12/25/16 at 09:00; Stop at 09:20; Status DC Aspirin (Children'S Aspirin) 81 mg DAILY PO Last administered on 12/27/16 08: 18; Start 12/25/16 at 09:00 Carvedilol (Coreg) 12.5 mg BIDWMEALS PO Last administered on 12/26/16 17:25; Start 12/24/16 at 21:00 Metformin HCl (Glucophage) 500 mg BIDWMEALS PO Last administered on 12/27/16 08:18; Start 12/25/16 at 08:00 Losartan Potassium (Cozaar) 100 mg DAILY PO Last administered on 12/27/16 08: 20; Start 12/25/16 at 09:00 Atorvastatin Calcium (Lipitor) 10 mg QHS PO Last administered on 12/26/16 21: 42; Start 12/24/16 at 21:00 Hydrochlorothiazide (Hydrodiuril) 25 mg DAILY PO ; Start 12/25/16 at 09:00; Stop 12/25/16 at 09:20; Status DC Morphine Sulfate 1 mg PRN Q1HR PRN IV SEVERE PAIN Last administered on 21:28; Start 12/24/16 at 20:00 Lidocaine HCl (Glydo (Lidocaine) Jelly) 6 joey STK-MED ONCE .ROUTE Last administered on 12/25/16 10:08; Start 12/25/16 at 06:36; Stop 12/25/16 at 06:37 ; Status DC Iohexol (Omnipaque 300 Mg/ml) 50 ml STK-MED ONCE .ROUTE Last administered on 09:56; Start 12/25/16 at 06:36; Stop 12/25/16 at 06:37; Status DC Lidocaine HCl (Glydo (Lidocaine) Jelly) 6 joey STK-MED ONCE .ROUTE Last administered on 12/25/16 10:08; Start 12/25/16 at 06:36; Stop 12/25/16 at 06:37 ; Status DC Dextrose/Lactated Ringer's 1,000 ml @ 100 mls/hr Q10H IV Last administered on 12/25/16 09:00; Start 12/25/16 at 08:45; Stop 12/25/16 at 22:01; Status DC Levofloxacin/ Dextrose 50 ml @ 50 mls/hr 1X ONCE IV Last administered on 09:43; Start 12/25/16 at 09:15; Stop 12/25/16 at 10:14; Status DC Phenylephrine HCl 1 mg STK-MED ONCE IV ; Start 12/25/16 at 09:46; Stop 12/25/16 at 09:47; Status DC Sodium Chloride 1,000 ml @ 100 mls/hr Q10H IV Last administered on 12/27/16 01:54; Start 12/25/16 at 11:30 Meropenem 500 mg/ Sodium Chloride 50 ml @ 100 mls/hr Q6HRS IV Last administered on 5/18/17at 05:51; Start 12/26/16 at 07:00 Active Scripts Active Reported Carvedilol 12.5 Mg Tablet 1 Tab PO BID Aspirin 81 Mg Tab.chew 1 Tab PO DAILY Losartan-Hctz 100-25 Mg Tab (Losartan/Hydrochlorothiazide) 1 Each Tablet 1 Tab PO DAILY Amlodipine Besylate 5 Mg Tablet 5 Mg PO DAILY Pravastatin Sodium 40 Mg Tablet 1 Tab PO QHS Metformin Hcl 500 Mg Tablet 500 Mg PO BIDWMEALS Vitals/I & O Vital Sign - Last 24 Hours 12/26/16 12/26/16 12/26/16 12/26/16 11:00 15:24 17:25 19:33 Temp 97.7 96.4 97.8 97.7 96.4 97.8 Pulse 65 56 56 61 Resp 16 16 16 B/P (MAP) 121/64 (83) 118/57 (77) 118/57 141/69 (93) Pulse Ox 95 92 O2 Delivery Nasal Cannula Room Air Nasal Cannula O2 Flow Rate 2.5 2.0 12/26/16 12/26/16 12/27/16 12/27/16 20:00 23:00 02:51 08:00 Temp 98.6 98.6 98.6 98.6 Pulse 88 76 58 Resp 18 18 B/P (MAP) 135/64 (87) 136/68 (90) 150/72 Pulse Ox 96 95 O2 Delivery Nasal Cannula Nasal Cannula Nasal Cannula O2 Flow Rate 2.0 3.0 3.0 12/27/16 12/27/16 12/27/16 08:00 08:13 08:20 Temp 97.7 97.7 Pulse 58 58 Resp 18 B/P (MAP) 150/72 (98) 150/72 Pulse Ox 93 O2 Delivery Nasal Cannula Nasal Cannula O2 Flow Rate 2.0 3.0 Intake and Output 12/26/16 12/26/16 12/27/16 15:00 23:00 07:00 Intake Total 200 ml Output Total 400 ml 300 ml Balance -400 ml -100 ml ISABELLA HAMMOND MD December 27, 2016 08:57
--- NOTE | 2016-12-27 10:03 | PDOC ---
PULMONARY PROGRESS NOTES Subjective feels better Vitals Vital Signs Date Time Temp Pulse Resp B/P (MAP) Pulse Ox O2 Delivery O2 Flow Rate FiO2 12/27/16 08:20 58 150/72 12/27/16 08:13 97.7 18 93 Nasal Cannula 3.0 97.7 General: Alert, No acute distress Lungs: Clear Cardiovascular: S1 Abdomen: Soft Neuro Exam: Alert Extremities: No Edema Skin: Warm Labs Laboratory Tests Test 12/25/16 10:37 12/26/16 04:40 12/27/16 04:05 Glucose (Fingerstick) 145 mg/dL (70-99) White Blood Count 26.1 x10^3/uL (4.0-11.0) 20.0 x10^3/uL (4.0-11.0) Red Blood Count 4.47 x10^6/uL (3.50-5.40) 4.36 x10^6/uL (3.50-5.40) Hemoglobin 13.3 g/dL (12.0-15.5) 12.9 g/dL (12.0-15.5) Hematocrit 38.8 % (36.0-47.0) 38.7 % (36.0-47.0) Mean Corpuscular Volume 87 fL (79-100) 89 fL (79-100) Mean Corpuscular Hemoglobin 30 pg (25-35) 30 pg (25-35) Mean Corpuscular Hemoglobin Concent 34 g/dL (31-37) 34 g/dL (31-37) Red Cell Distribution Width 13.7 % (11.5-14.5) 13.8 % (11.5-14.5) Platelet Count 99 x10^3/uL (140-400) 105 x10^3/uL (140-400) Neutrophils (%) (Auto) 91 % (31-73) 86 % (31-73) Lymphocytes (%) (Auto) 4 % (24-48) 10 % (24-48) Monocytes (%) (Auto) 6 % (0-9) 4 % (0-9) Eosinophils (%) (Auto) 0 % (0-3) 0 % (0-3) Basophils (%) (Auto) 0 % (0-3) 0 % (0-3) Neutrophils # (Auto) 23.6 x10^3uL (1.8-7.7) 17.2 x10^3uL (1.8-7.7) Lymphocytes # (Auto) 0.9 x10^3/uL (1.0-4.8) 1.9 x10^3/uL (1.0-4.8) Monocytes # (Auto) 1.5 x10^3/uL (0.0-1.1) 0.8 x10^3/uL (0.0-1.1) Eosinophils # (Auto) 0.0 x10^3/uL (0.0-0.7) 0.0 x10^3/uL (0.0-0.7) Basophils # (Auto) 0.0 x10^3/uL (0.0-0.2) 0.1 x10^3/uL (0.0-0.2) Sodium Level 139 mmol/L (136-145) 143 mmol/L (136-145) Potassium Level 3.2 mmol/L (3.5-5.1) 3.6 mmol/L (3.5-5.1) Chloride Level 102 mmol/L (98-107) 109 mmol/L (98-107) Carbon Dioxide Level 28 mmol/L (21-32) 25 mmol/L (21-32) Anion Gap 9 (6-14) 9 (6-14) Blood Urea Nitrogen 44 mg/dL (7-20) 32 mg/dL (7-20) Creatinine 1.2 mg/dL (0.6-1.0) 0.8 mg/dL (0.6-1.0) Estimated GFR (Cockcroft-Gault) 43.1 68.8 Glucose Level 137 mg/dL (70-99) 112 mg/dL (70-99) Calcium Level 9.1 mg/dL (8.5-10.1) 8.8 mg/dL (8.5-10.1) Laboratory Tests Test 12/27/16 04:05 White Blood Count 20.0 x10^3/uL (4.0-11.0) Red Blood Count 4.36 x10^6/uL (3.50-5.40) Hemoglobin 12.9 g/dL (12.0-15.5) Hematocrit 38.7 % (36.0-47.0) Mean Corpuscular Volume 89 fL (79-100) Mean Corpuscular Hemoglobin 30 pg (25-35) Mean Corpuscular Hemoglobin Concent 34 g/dL (31-37) Red Cell Distribution Width 13.8 % (11.5-14.5) Platelet Count 105 x10^3/uL (140-400) Neutrophils (%) (Auto) 86 % (31-73) Lymphocytes (%) (Auto) 10 % (24-48) Monocytes (%) (Auto) 4 % (0-9) Eosinophils (%) (Auto) 0 % (0-3) Basophils (%) (Auto) 0 % (0-3) Neutrophils # (Auto) 17.2 x10^3uL (1.8-7.7) Lymphocytes # (Auto) 1.9 x10^3/uL (1.0-4.8) Monocytes # (Auto) 0.8 x10^3/uL (0.0-1.1) Eosinophils # (Auto) 0.0 x10^3/uL (0.0-0.7) Basophils # (Auto) 0.1 x10^3/uL (0.0-0.2) Sodium Level 143 mmol/L (136-145) Potassium Level 3.6 mmol/L (3.5-5.1) Chloride Level 109 mmol/L (98-107) Carbon Dioxide Level 25 mmol/L (21-32) Anion Gap 9 (6-14) Blood Urea Nitrogen 32 mg/dL (7-20) Creatinine 0.8 mg/dL (0.6-1.0) Estimated GFR (Cockcroft-Gault) 68.8 Glucose Level 112 mg/dL (70-99) Calcium Level 8.8 mg/dL (8.5-10.1) Medications Active Scripts Medications Dose Route/Sig Max Daily Dose Days Date Category Carvedilol 12.5 Mg Tablet 1 Tab PO BID 12/24/16 Reported Aspirin 81 Mg Tab.chew 1 Tab PO DAILY 12/24/16 Reported Losartan-Hctz 100-25 Mg Tab (Losartan/Hydrochlorothiazide) 1 Each Tablet 1 Tab PO DAILY 12/24/16 Reported Amlodipine Besylate 5 Mg Tablet 5 Mg PO DAILY 12/24/16 Reported Pravastatin Sodium 40 Mg Tablet 1 Tab PO QHS 12/24/16 Reported Metformin Hcl 500 Mg Tablet 500 Mg PO BIDWMEALS 12/24/16 Reported Impression . 1. Tiny subpleural nodules seen in the right middle and right lower lobe and LLL. This patient is a lifetime nonsmoker and has no known cancers. These nodules are probably noncalcified granulomas. From pulmonary standpoint, I would recommend repeating a CT chest in six months. Her PCP is Dr. Moises Sandoval and the patient will arrange CT follow with him. 2. Renal stone, status post cystoscopy and right retrograde pyelogram and right ureteral stent placement. 3. Nonsmoker. Plan . 1. Noncontrast CT chest reviewed. Tiny 4-5 mm lung nodules, likely benign. 2. I would recommend repeat CT chest in six months. She can be followed up by her PCP Dr. Moises Sandoval who can arrange ct chest. The patient is agreeable with that plan. JUAN EGAN MD December 27, 2016 10:03
[2016-12-27 10:49] VITALS: BP 143/59
--- NOTE | 2016-12-27 12:33 | PDOC ---
PROGRESS NOTES Chief Complaint Chief Complaint 1. 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 HYPOTENSION, fluid responsive 3. Geriatric, fall risk 4. UTI 5. SIRS POA (leukocytosis etc) NO SEPSIS 6. Proteus UTI History of Present Illness History of Present Illness WBC 20s NO fever Asleep did not awaken Urine cx: URINE CULTURE Final Final report URINE CULTURE RES 1 Final Proteus mirabilis Greater than 100,000 colony forming units per mL ANTIMICROBIAL SUSCEPTIBILITY Final Comment S = Susceptible; I = Intermediate; R = Resistant P = Positive; N = Negative MICS are expressed in micrograms per mL Antibiotic RSLT#1 RSLT#2 RSLT#3 RSLT#4 Amoxicillin/Clavulanic Acid S Ampicillin S Cefepime S Ceftriaxone S Cefuroxime S Cephalothin S Ciprofloxacin S Ertapenem S Gentamicin S Levofloxacin S Nitrofurantoin R Piperacillin S Tetracycline R Tobramycin S Trimethoprim/Sulfa S Performed at: [address] [id number] Director Supply: Paulette Hunt MD, Phone: [phone] PLAN: Follow ID recs [facility] anais AM Gustavo blanton Planned for Home possible HH ? upon dc Gustavo Lange,. franny and SW and case Vitals Vitals Vital Signs Date Time Temp Pulse Resp B/P (MAP) Pulse Ox O2 Delivery O2 Flow Rate FiO2 12/27/16 10:49 97.7 60 18 143/59 (87) 92 Nasal Cannula 3.0 97.7 Physical Exam General: Alert, Oriented X3, Cooperative Heart: Regular rate, Normal S2 Lungs: Clear Abdomen: Normal bowel sounds, Soft Extremities: No clubbing, No cyanosis Skin: No rashes, No breakdown Labs LABS Laboratory Tests Test 12/27/16 04:05 White Blood Count 20.0 x10^3/uL (4.0-11.0) Red Blood Count 4.36 x10^6/uL (3.50-5.40) Hemoglobin 12.9 g/dL (12.0-15.5) Hematocrit 38.7 % (36.0-47.0) Mean Corpuscular Volume 89 fL (79-100) Mean Corpuscular Hemoglobin 30 pg (25-35) Mean Corpuscular Hemoglobin Concent 34 g/dL (31-37) Red Cell Distribution Width 13.8 % (11.5-14.5) Platelet Count 105 x10^3/uL (140-400) Neutrophils (%) (Auto) 86 % (31-73) Lymphocytes (%) (Auto) 10 % (24-48) Monocytes (%) (Auto) 4 % (0-9) Eosinophils (%) (Auto) 0 % (0-3) Basophils (%) (Auto) 0 % (0-3) Neutrophils # (Auto) 17.2 x10^3uL (1.8-7.7) Lymphocytes # (Auto) 1.9 x10^3/uL (1.0-4.8) Monocytes # (Auto) 0.8 x10^3/uL (0.0-1.1) Eosinophils # (Auto) 0.0 x10^3/uL (0.0-0.7) Basophils # (Auto) 0.1 x10^3/uL (0.0-0.2) Sodium Level 143 mmol/L (136-145) Potassium Level 3.6 mmol/L (3.5-5.1) Chloride Level 109 mmol/L (98-107) Carbon Dioxide Level 25 mmol/L (21-32) Anion Gap 9 (6-14) Blood Urea Nitrogen 32 mg/dL (7-20) Creatinine 0.8 mg/dL (0.6-1.0) Estimated GFR (Cockcroft-Gault) 68.8 Glucose Level 112 mg/dL (70-99) Calcium Level 8.8 mg/dL (8.5-10.1) Review of Systems Review of Systems asleep did not awaken. neg per others notes Assessment and Plan Assessmemt and Plan Problems Medical Problems: (1) Intractable pain Status: Acute (2) Right ureteral stone Status: Acute Problems: Comment Review of Relevant I have reviewed the following items jewell (where applicable) has been applied. Labs Laboratory Tests Test 12/26/16 04:40 12/27/16 04:05 White Blood Count 26.1 x10^3/uL (4.0-11.0) 20.0 x10^3/uL (4.0-11.0) Red Blood Count 4.47 x10^6/uL (3.50-5.40) 4.36 x10^6/uL (3.50-5.40) Hemoglobin 13.3 g/dL (12.0-15.5) 12.9 g/dL (12.0-15.5) Hematocrit 38.8 % (36.0-47.0) 38.7 % (36.0-47.0) Mean Corpuscular Volume 87 fL (79-100) 89 fL (79-100) Mean Corpuscular Hemoglobin 30 pg (25-35) 30 pg (25-35) Mean Corpuscular Hemoglobin Concent 34 g/dL (31-37) 34 g/dL (31-37) Red Cell Distribution Width 13.7 % (11.5-14.5) 13.8 % (11.5-14.5) Platelet Count 99 x10^3/uL (140-400) 105 x10^3/uL (140-400) Neutrophils (%) (Auto) 91 % (31-73) 86 % (31-73) Lymphocytes (%) (Auto) 4 % (24-48) 10 % (24-48) Monocytes (%) (Auto) 6 % (0-9) 4 % (0-9) Eosinophils (%) (Auto) 0 % (0-3) 0 % (0-3) Basophils (%) (Auto) 0 % (0-3) 0 % (0-3) Neutrophils # (Auto) 23.6 x10^3uL (1.8-7.7) 17.2 x10^3uL (1.8-7.7) Lymphocytes # (Auto) 0.9 x10^3/uL (1.0-4.8) 1.9 x10^3/uL (1.0-4.8) Monocytes # (Auto) 1.5 x10^3/uL (0.0-1.1) 0.8 x10^3/uL (0.0-1.1) Eosinophils # (Auto) 0.0 x10^3/uL (0.0-0.7) 0.0 x10^3/uL (0.0-0.7) Basophils # (Auto) 0.0 x10^3/uL (0.0-0.2) 0.1 x10^3/uL (0.0-0.2) Sodium Level 139 mmol/L (136-145) 143 mmol/L (136-145) Potassium Level 3.2 mmol/L (3.5-5.1) 3.6 mmol/L (3.5-5.1) Chloride Level 102 mmol/L (98-107) 109 mmol/L (98-107) Carbon Dioxide Level 28 mmol/L (21-32) 25 mmol/L (21-32) Anion Gap 9 (6-14) 9 (6-14) Blood Urea Nitrogen 44 mg/dL (7-20) 32 mg/dL (7-20) Creatinine 1.2 mg/dL (0.6-1.0) 0.8 mg/dL (0.6-1.0) Estimated GFR (Cockcroft-Gault) 43.1 68.8 Glucose Level 137 mg/dL (70-99) 112 mg/dL (70-99) Calcium Level 9.1 mg/dL (8.5-10.1) 8.8 mg/dL (8.5-10.1) Laboratory Tests Test 12/27/16 04:05 White Blood Count 20.0 x10^3/uL (4.0-11.0) Red Blood Count 4.36 x10^6/uL (3.50-5.40) Hemoglobin 12.9 g/dL (12.0-15.5) Hematocrit 38.7 % (36.0-47.0) Mean Corpuscular Volume 89 fL (79-100) Mean Corpuscular Hemoglobin 30 pg (25-35) Mean Corpuscular Hemoglobin Concent 34 g/dL (31-37) Red Cell Distribution Width 13.8 % (11.5-14.5) Platelet Count 105 x10^3/uL (140-400) Neutrophils (%) (Auto) 86 % (31-73) Lymphocytes (%) (Auto) 10 % (24-48) Monocytes (%) (Auto) 4 % (0-9) Eosinophils (%) (Auto) 0 % (0-3) Basophils (%) (Auto) 0 % (0-3) Neutrophils # (Auto) 17.2 x10^3uL (1.8-7.7) Lymphocytes # (Auto) 1.9 x10^3/uL (1.0-4.8) Monocytes # (Auto) 0.8 x10^3/uL (0.0-1.1) Eosinophils # (Auto) 0.0 x10^3/uL (0.0-0.7) Basophils # (Auto) 0.1 x10^3/uL (0.0-0.2) Sodium Level 143 mmol/L (136-145) Potassium Level 3.6 mmol/L (3.5-5.1) Chloride Level 109 mmol/L (98-107) Carbon Dioxide Level 25 mmol/L (21-32) Anion Gap 9 (6-14) Blood Urea Nitrogen 32 mg/dL (7-20) Creatinine 0.8 mg/dL (0.6-1.0) Estimated GFR (Cockcroft-Gault) 68.8 Glucose Level 112 mg/dL (70-99) Calcium Level 8.8 mg/dL (8.5-10.1) Microbiology 12/25/16 Urine Culture - Preliminary, Resulted 12/25/16 Urine Culture Result 1 (FAY) - Preliminary, Resulted Medications Current Medications Ondansetron HCl (Zofran) 8 mg 1X ONCE IV Last administered on 12/24/16 14:06 ; Start 12/24/16 at 13:45; Stop 12/24/16 at 13:55; Status DC Morphine Sulfate 5 mg 1X ONCE IV Last administered on 12/24/16 14:05; Start 12/24/16 at 13:45; Stop 12/24/16 at 13:55; Status DC Ketorolac Tromethamine (Toradol) 15 mg 1X ONCE IV Last administered on 14:06; Start 12/24/16 at 13:45; Stop 12/24/16 at 13:55; Status DC Ondansetron HCl (Zofran) 4 mg PRN Q8HRS PRN IV NAUSEA/VOMITING; Start 12/24/16 at 15:00; Stop 12/25/16 at 14:59; Status DC Fentanyl Citrate (Fentanyl 2ml Vial) 50 mcg PRN Q2HR PRN IV PAIN; Start at 15:00; Stop 12/24/16 at 19:43; Status DC Ceftriaxone Sodium 1 gm/ Sodium Chloride 50 ml @ 100 mls/hr Q24H IV ; Start at 15:00; Stop 12/25/16 at 15:00; Status DC Ceftriaxone Sodium 50 ml @ 100 mls/hr 1X ONCE IV Last administered on t 15:15; Start 12/24/16 at 15:00; Stop 12/24/16 at 15:29; Status DC Tamsulosin HCl (Flomax) 0.4 mg DAILY PO Last administered on 12/27/16t 08:19; Start 12/24/16 at 17:00 Ondansetron HCl (Zofran) 4 mg PRN Q6HRS PRN IV NAUSEA/VOMITING; Start 12/25/16 at 07:00; Stop 12/25/16 at 23:00; Status DC Fentanyl Citrate (Fentanyl 2ml Vial) 25 mcg PRN Q5MIN PRN IV MILD PAIN; Start 12/25/16 at 07:00; Stop 12/25/16 at 07:00; Status DC Fentanyl Citrate (Fentanyl 2ml Vial) 50 mcg PRN Q5MIN PRN IV MODERATE PAIN; Start 12/25/16 at 07:00; Stop 12/25/16 at 07:00; Status DC Morphine Sulfate 1 mg PRN Q10MIN PRN IV SEVERE PAIN; Start 12/25/16 at 07:00; Stop 12/25/16 at 07:00; Status DC Ringer's Solution 1,000 ml @ 0 mls/hr Q0M IV ; Start 12/25/16 at 07:00; Stop at 18:59; Status DC Lidocaine HCl 2 ml PRN 1X PRN ID PRIOR TO IV START; Start 12/25/16 at 07:00; Stop 12/26/16 at 06:59; Status DC Hydromorphone HCl (Dilaudid) 0.5 mg PRN Q10MIN PRN IV SEV PAIN, Second choice; Start 12/25/16 at 07:00; Stop 12/25/16 at 07:00; Status DC Prochlorperazine Edisylate (Compazine) 5 mg PACU PRN PRN IV NAUSEA, MRX1; Start 12/25/16 at 07:00; Stop 12/25/16 at 23:00; Status DC Amlodipine Besylate (Norvasc) 5 mg DAILY PO ; Start 12/25/16 at 09:00; Stop at 09:20; Status DC Aspirin (Children'S Aspirin) 81 mg DAILY PO Last administered on 12/27/16 08: 18; Start 12/25/16 at 09:00 Carvedilol (Coreg) 12.5 mg BIDWMEALS PO Last administered on 12/26/16 17:25; Start 12/24/16 at 21:00 Metformin HCl (Glucophage) 500 mg BIDWMEALS PO Last administered on 12/27/16 08:18; Start 12/25/16 at 08:00 Losartan Potassium (Cozaar) 100 mg DAILY PO Last administered on 12/27/16 08: 20; Start 12/25/16 at 09:00 Atorvastatin Calcium (Lipitor) 10 mg QHS PO Last administered on 12/26/16 21: 42; Start 12/24/16 at 21:00 Hydrochlorothiazide (Hydrodiuril) 25 mg DAILY PO ; Start 12/25/16 at 09:00; Stop 12/25/16 at 09:20; Status DC Morphine Sulfate 1 mg PRN Q1HR PRN IV SEVERE PAIN Last administered on 21:28; Start 12/24/16 at 20:00 Lidocaine HCl (Glydo (Lidocaine) Jelly) 6 joey STK-MED ONCE .ROUTE Last administered on 12/25/16 10:08; Start 12/25/16 at 06:36; Stop 12/25/16 at 06:37 ; Status DC Iohexol (Omnipaque 300 Mg/ml) 50 ml STK-MED ONCE .ROUTE Last administered on 09:56; Start 12/25/16 at 06:36; Stop 12/25/16 at 06:37; Status DC Lidocaine HCl (Glydo (Lidocaine) Jelly) 6 joey STK-MED ONCE .ROUTE Last administered on 12/25/16 10:08; Start 12/25/16 at 06:36; Stop 12/25/16 at 06:37 ; Status DC Dextrose/Lactated Ringer's 1,000 ml @ 100 mls/hr Q10H IV Last administered on 12/25/16 09:00; Start 12/25/16 at 08:45; Stop 12/25/16 at 22:01; Status DC Levofloxacin/ Dextrose 50 ml @ 50 mls/hr 1X ONCE IV Last administered on 09:43; Start 12/25/16 at 09:15; Stop 12/25/16 at 10:14; Status DC Phenylephrine HCl 1 mg STK-MED ONCE IV ; Start 12/25/16 at 09:46; Stop 12/25/16 at 09:47; Status DC Sodium Chloride 1,000 ml @ 100 mls/hr Q10H IV Last administered on 12/27/16 11:43; Start 12/25/16 at 11:30 Meropenem 500 mg/ Sodium Chloride 50 ml @ 100 mls/hr Q6HRS IV Last administered on 12/27/16 11:43; Start 12/26/16 at 07:00 Active Scripts Active Reported Carvedilol 12.5 Mg Tablet 1 Tab PO BID Aspirin 81 Mg Tab.chew 1 Tab PO DAILY Losartan-Hctz 100-25 Mg Tab (Losartan/Hydrochlorothiazide) 1 Each Tablet 1 Tab PO DAILY Amlodipine Besylate 5 Mg Tablet 5 Mg PO DAILY Pravastatin Sodium 40 Mg Tablet 1 Tab PO QHS Metformin Hcl 500 Mg Tablet 500 Mg PO BIDWMEALS Vitals/I & O Vital Sign - Last 24 Hours 12/26/16 12/26/16 12/26/16 12/26/16 15:24 17:25 19:33 20:00 Temp 96.4 97.8 96.4 97.8 Pulse 56 56 61 Resp 16 16 B/P (MAP) 118/57 (77) 118/57 141/69 (93) Pulse Ox 92 O2 Delivery Room Air Nasal Cannula Nasal Cannula O2 Flow Rate 2.0 2.0 12/26/16 12/27/16 12/27/16 12/27/16 23:00 02:51 08:00 08:00 Temp 98.6 98.6 98.6 98.6 Pulse 88 76 58 Resp 18 18 B/P (MAP) 135/64 (87) 136/68 (90) 150/72 Pulse Ox 96 95 O2 Delivery Nasal Cannula Nasal Cannula Nasal Cannula O2 Flow Rate 3.0 3.0 2.0 12/27/16 12/27/16 12/27/16 08:13 08:20 10:49 Temp 97.7 97.7 97.7 97.7 Pulse 58 58 60 Resp 18 18 B/P (MAP) 150/72 (98) 150/72 143/59 (87) Pulse Ox 93 92 O2 Delivery Nasal Cannula Nasal Cannula O2 Flow Rate 3.0 3.0 Intake and Output 12/26/16 12/26/16 12/27/16 15:00 23:00 07:00 Intake Total 200 ml Output Total 400 ml 300 ml Balance -400 ml -100 ml VERÓNICA FERNANDEZ MD December 27, 2016 12:33
[2016-12-27 15:05] VITALS: BP 145/90
[2016-12-27 19:10] VITALS: BP 171/86
[2016-12-27] MEDS: ATORVASTATIN CALCIUM 10 MG TABLET. PO SCH (21:13)
[2016-12-27 23:10] VITALS: BP 159/88
[2016-12-28] MEDS: MEROPENEM 500 MG in IV NORMAL SALINE 50ML 50 ML IV SCH ×2 (00:34→06:33)
[2016-12-28 03:15] VITALS: BP 168/78
[2016-12-28 06:35] LABS: BASO % 0 % (0-3); EOS % 1 % (0-3); HEMATOCRIT 39.7 % (36.0-47.0); HEMOGLOBIN 13.1 g/dL (12.0-15.5); LYMPH % 15 % (24-48); MEAN CORPUSCULAR HEMOGLOBIN 29 pg (25-35); MEAN CORPUSCULAR HGB CONC 33 g/dL (31-37); MEAN CORPUSCULAR VOLUME 89 fL (79-100); MONO % 5 % (0-9); NEUT % 79 % (31-73); PLATELET COUNT 130 x10^3/uL (140-400); RED BLOOD COUNT 4.48 x10^6/uL (3.50-5.40); RED CELL DISTRIBUTION WIDTH 13.5 % (11.5-14.5); WHITE BLOOD COUNT 13.5 x10^3/uL (4.0-11.0)
[2016-12-28 07:00] VITALS: BP 200/129
--- NOTE | 2016-12-28 07:53 | PDOC ---
Infectious Disease Note Subjective Subjective Feeling better but didn't sleep well. + BM and passing urine ok Feels her breathing is a little short Still having some reflux ROS ROS GEN: Denies fevers, chills, sweats HEENT: Denies blurred vision, sore throat CV: Denies chest pain RESP: Denies cough GI: Denies n/v/d NEURO: Denies confusion, dizziness MSK: Denies weakness, joint pain/swelling Vital Sign Vital Signs Vital Signs Date Time Temp Pulse Resp B/P (MAP) Pulse Ox O2 Delivery O2 Flow Rate FiO2 12/28/16 03:15 98.2 65 20 168/78 (108) 91 Nasal Cannula 2.0 98.2 Physical Exam PHYSICAL EXAM GENERAL: NAD, Alert, on side of bed HEENT: PERRL, OC/OP -clear NECK: Supple, no JVD, no LN LUNGS: Clear - no crackles. on 02 HEART: S1S2, no gallop, no murmur ABD: Soft, NT, no organomegaly, no rebound EXT: No edema, no cyanosis RN EMPLOYEE HEALTH: Alert, oriented x 3, no focal neurologic deficit SKIN: No rash IV: ok Labs Lab Laboratory Tests Test 12/28/16 05:50 White Blood Count 13.5 x10^3/uL (4.0-11.0) Red Blood Count 4.48 x10^6/uL (3.50-5.40) Hemoglobin 13.1 g/dL (12.0-15.5) Hematocrit 39.7 % (36.0-47.0) Mean Corpuscular Volume 89 fL (79-100) Mean Corpuscular Hemoglobin 29 pg (25-35) Mean Corpuscular Hemoglobin Concent 33 g/dL (31-37) Red Cell Distribution Width 13.5 % (11.5-14.5) Platelet Count 130 x10^3/uL (140-400) Neutrophils (%) (Auto) 79 % (31-73) Lymphocytes (%) (Auto) 15 % (24-48) Monocytes (%) (Auto) 5 % (0-9) Eosinophils (%) (Auto) 1 % (0-3) Basophils (%) (Auto) 0 % (0-3) Neutrophils # (Auto) 10.7 x10^3uL (1.8-7.7) Lymphocytes # (Auto) 2.0 x10^3/uL (1.0-4.8) Monocytes # (Auto) 0.7 x10^3/uL (0.0-1.1) Eosinophils # (Auto) 0.1 x10^3/uL (0.0-0.7) Basophils # (Auto) 0.0 x10^3/uL (0.0-0.2) Micro 12/24 Proteus mirabilis Greater than 100,000 colony forming units per mL ANTIMICROBIAL SUSCEPTIBILITY Final Comment S = Susceptible; I = Intermediate; R = Resistant P = Positive; N = Negative MICS are expressed in micrograms per mL Antibiotic RSLT#1 RSLT#2 RSLT#3 RSLT#4 Amoxicillin/Clavulanic Acid S Ampicillin S Cefepime S Ceftriaxone S Cefuroxime S Cephalothin S Ciprofloxacin S Ertapenem S Gentamicin S Levofloxacin S Nitrofurantoin R Piperacillin S Tetracycline R Tobramycin S Trimethoprim/Sulfa S Objective Assessment Proteus UTI - POA with likely pyelonephritis Leukocytosis - Sec to infection and ? post op - clinically she feels well. Better S/p Cystoscopy, right retrograde pyelogram, right ureteral stent placement.12/25 GERD DM Lung nodules on CT Plan Plan of Care Change to po cipro and treat through 01/06 to treat for potential pyleo and stones May benefit from Prontonix/Pepcid Ok to d/c from ID standpoint if ok with other services F/u ID office one week [phone] VIKCY BAI MD December 28, 2016 07:53
[2016-12-28] MEDS: TAMSULOSIN 0.4 MG CAP.ER.24H. PO SCH (08:01)
[2016-12-28] MEDS: LOSARTAN POTASSIUM 50 MG TABLET. PO SCH (08:01)
[2016-12-28] MEDS: ASPIRIN CHEWABLE 81 MG TABLET. PO SCH (08:01)
[2016-12-28] MEDS: metFORMIN 500 MG TABLET PO SCH (08:01)
[2016-12-28] MEDS: CARVEDILOL 12.5 MG TABLET. PO SCH (08:02)
[2016-12-28 08:12] VITALS: BP 186/87
--- NOTE | 2016-12-28 08:43 | PDOC ---
PROGRESS NOTES Subjective Subjective Pt. feeling well Objective Objective Vital Signs Date Time Temp Pulse Resp B/P (MAP) Pulse Ox O2 Delivery O2 Flow Rate FiO2 12/28/16 08:12 80 186/87 (120) 12/28/16 07:00 97.4 20 94 Nasal Cannula 2.0 97.4 Intake and Output 12/28/16 07:01 Intake Total 1060 ml Output Total 1050 ml Balance 10 ml Intake Oral 800 ml IV Total 260 ml Output Urine Total 1050 ml # Voids 5 # Bowel Movements 2 Physical Exam Physical Exam Abd-soft, non-tender [id number] Plan Plan of Care PO cipro for 10 days Probable ureteroscopy in 2-3 weeks if OK with pulmonary medicine Pt. to F/U with urology (Dr. Ni or Dr. Allred or Dr. Carmona) to line up ureteroscopy as I will be on leave for 3 weeks of January. Problems Medical Problems: (1) Intractable pain Status: Acute (2) Right ureteral stone Status: Acute Comment Review of Relevant I have reviewed the following items jewell (where applicable) has been applied. Labs Laboratory Tests Test 12/27/16 04:05 12/28/16 05:50 White Blood Count 20.0 x10^3/uL (4.0-11.0) 13.5 x10^3/uL (4.0-11.0) Red Blood Count 4.36 x10^6/uL (3.50-5.40) 4.48 x10^6/uL (3.50-5.40) Hemoglobin 12.9 g/dL (12.0-15.5) 13.1 g/dL (12.0-15.5) Hematocrit 38.7 % (36.0-47.0) 39.7 % (36.0-47.0) Mean Corpuscular Volume 89 fL (79-100) 89 fL (79-100) Mean Corpuscular Hemoglobin 30 pg (25-35) 29 pg (25-35) Mean Corpuscular Hemoglobin Concent 34 g/dL (31-37) 33 g/dL (31-37) Red Cell Distribution Width 13.8 % (11.5-14.5) 13.5 % (11.5-14.5) Platelet Count 105 x10^3/uL (140-400) 130 x10^3/uL (140-400) Neutrophils (%) (Auto) 86 % (31-73) 79 % (31-73) Lymphocytes (%) (Auto) 10 % (24-48) 15 % (24-48) Monocytes (%) (Auto) 4 % (0-9) 5 % (0-9) Eosinophils (%) (Auto) 0 % (0-3) 1 % (0-3) Basophils (%) (Auto) 0 % (0-3) 0 % (0-3) Neutrophils # (Auto) 17.2 x10^3uL (1.8-7.7) 10.7 x10^3uL (1.8-7.7) Lymphocytes # (Auto) 1.9 x10^3/uL (1.0-4.8) 2.0 x10^3/uL (1.0-4.8) Monocytes # (Auto) 0.8 x10^3/uL (0.0-1.1) 0.7 x10^3/uL (0.0-1.1) Eosinophils # (Auto) 0.0 x10^3/uL (0.0-0.7) 0.1 x10^3/uL (0.0-0.7) Basophils # (Auto) 0.1 x10^3/uL (0.0-0.2) 0.0 x10^3/uL (0.0-0.2) Sodium Level 143 mmol/L (136-145) Potassium Level 3.6 mmol/L (3.5-5.1) Chloride Level 109 mmol/L (98-107) Carbon Dioxide Level 25 mmol/L (21-32) Anion Gap 9 (6-14) Blood Urea Nitrogen 32 mg/dL (7-20) Creatinine 0.8 mg/dL (0.6-1.0) Estimated GFR (Cockcroft-Gault) 68.8 Glucose Level 112 mg/dL (70-99) Calcium Level 8.8 mg/dL (8.5-10.1) Laboratory Tests Test 12/28/16 05:50 White Blood Count 13.5 x10^3/uL (4.0-11.0) Red Blood Count 4.48 x10^6/uL (3.50-5.40) Hemoglobin 13.1 g/dL (12.0-15.5) Hematocrit 39.7 % (36.0-47.0) Mean Corpuscular Volume 89 fL (79-100) Mean Corpuscular Hemoglobin 29 pg (25-35) Mean Corpuscular Hemoglobin Concent 33 g/dL (31-37) Red Cell Distribution Width 13.5 % (11.5-14.5) Platelet Count 130 x10^3/uL (140-400) Neutrophils (%) (Auto) 79 % (31-73) Lymphocytes (%) (Auto) 15 % (24-48) Monocytes (%) (Auto) 5 % (0-9) Eosinophils (%) (Auto) 1 % (0-3) Basophils (%) (Auto) 0 % (0-3) Neutrophils # (Auto) 10.7 x10^3uL (1.8-7.7) Lymphocytes # (Auto) 2.0 x10^3/uL (1.0-4.8) Monocytes # (Auto) 0.7 x10^3/uL (0.0-1.1) Eosinophils # (Auto) 0.1 x10^3/uL (0.0-0.7) Basophils # (Auto) 0.0 x10^3/uL (0.0-0.2) Microbiology 12/25/16 Urine Culture - Final, Complete 12/25/16 Urine Culture Result 1 (FAY) - Final, Complete Medications Current Medications Ondansetron HCl (Zofran) 8 mg 1X ONCE IV Last administered on 12/24/16 14:06 ; Start 12/24/16 at 13:45; Stop 12/24/16 at 13:55; Status DC Morphine Sulfate 5 mg 1X ONCE IV Last administered on 12/24/16 14:05; Start 12/24/16 at 13:45; Stop 12/24/16 at 13:55; Status DC Ketorolac Tromethamine (Toradol) 15 mg 1X ONCE IV Last administered on 14:06; Start 12/24/16 at 13:45; Stop 12/24/16 at 13:55; Status DC Ondansetron HCl (Zofran) 4 mg PRN Q8HRS PRN IV NAUSEA/VOMITING; Start 12/24/16 at 15:00; Stop 12/25/16 at 14:59; Status DC Fentanyl Citrate (Fentanyl 2ml Vial) 50 mcg PRN Q2HR PRN IV PAIN; Start at 15:00; Stop 12/24/16 at 19:43; Status DC Ceftriaxone Sodium 1 gm/ Sodium Chloride 50 ml @ 100 mls/hr Q24H IV ; Start at 15:00; Stop 12/25/16 at 15:00; Status DC Ceftriaxone Sodium 50 ml @ 100 mls/hr 1X ONCE IV Last administered on t 15:15; Start 12/24/16 at 15:00; Stop 12/24/16 at 15:29; Status DC Tamsulosin HCl (Flomax) 0.4 mg DAILY PO Last administered on 12/28/16t 08:01; Start 12/24/16 at 17:00 Ondansetron HCl (Zofran) 4 mg PRN Q6HRS PRN IV NAUSEA/VOMITING; Start 12/25/16 at 07:00; Stop 12/25/16 at 23:00; Status DC Fentanyl Citrate (Fentanyl 2ml Vial) 25 mcg PRN Q5MIN PRN IV MILD PAIN; Start 12/25/16 at 07:00; Stop 12/25/16 at 07:00; Status DC Fentanyl Citrate (Fentanyl 2ml Vial) 50 mcg PRN Q5MIN PRN IV MODERATE PAIN; Start 12/25/16 at 07:00; Stop 12/25/16 at 07:00; Status DC Morphine Sulfate 1 mg PRN Q10MIN PRN IV SEVERE PAIN; Start 12/25/16 at 07:00; Stop 12/25/16 at 07:00; Status DC Ringer's Solution 1,000 ml @ 0 mls/hr Q0M IV ; Start 12/25/16 at 07:00; Stop at 18:59; Status DC Lidocaine HCl 2 ml PRN 1X PRN ID PRIOR TO IV START; Start 12/25/16 at 07:00; Stop 12/26/16 at 06:59; Status DC Hydromorphone HCl (Dilaudid) 0.5 mg PRN Q10MIN PRN IV SEV PAIN, Second choice; Start 12/25/16 at 07:00; Stop 12/25/16 at 07:00; Status DC Prochlorperazine Edisylate (Compazine) 5 mg PACU PRN PRN IV NAUSEA, MRX1; Start 12/25/16 at 07:00; Stop 12/25/16 at 23:00; Status DC Amlodipine Besylate (Norvasc) 5 mg DAILY PO ; Start 12/25/16 at 09:00; Stop at 09:20; Status DC Aspirin (Children'S Aspirin) 81 mg DAILY PO Last administered on 12/28/16 08: 01; Start 12/25/16 at 09:00 Carvedilol (Coreg) 12.5 mg BIDWMEALS PO Last administered on 12/28/16 08:02; Start 12/24/16 at 21:00 Metformin HCl (Glucophage) 500 mg BIDWMEALS PO Last administered on 12/28/16 08:01; Start 12/25/16 at 08:00 Losartan Potassium (Cozaar) 100 mg DAILY PO Last administered on 12/28/16 08: 01; Start 12/25/16 at 09:00 Atorvastatin Calcium (Lipitor) 10 mg QHS PO Last administered on 12/27/16 21: 13; Start 12/24/16 at 21:00 Hydrochlorothiazide (Hydrodiuril) 25 mg DAILY PO ; Start 12/25/16 at 09:00; Stop 12/25/16 at 09:20; Status DC Morphine Sulfate 1 mg PRN Q1HR PRN IV SEVERE PAIN Last administered on 21:28; Start 12/24/16 at 20:00 Lidocaine HCl (Glydo (Lidocaine) Jelly) 6 joey STK-MED ONCE .ROUTE Last administered on 12/25/16 10:08; Start 12/25/16 at 06:36; Stop 12/25/16 at 06:37 ; Status DC Iohexol (Omnipaque 300 Mg/ml) 50 ml STK-MED ONCE .ROUTE Last administered on 09:56; Start 12/25/16 at 06:36; Stop 12/25/16 at 06:37; Status DC Lidocaine HCl (Glydo (Lidocaine) Jelly) 6 joey STK-MED ONCE .ROUTE Last administered on 12/25/16 10:08; Start 12/25/16 at 06:36; Stop 12/25/16 at 06:37 ; Status DC Dextrose/Lactated Ringer's 1,000 ml @ 100 mls/hr Q10H IV Last administered on 12/25/16 09:00; Start 12/25/16 at 08:45; Stop 12/25/16 at 22:01; Status DC Levofloxacin/ Dextrose 50 ml @ 50 mls/hr 1X ONCE IV Last administered on 09:43; Start 12/25/16 at 09:15; Stop 12/25/16 at 10:14; Status DC Phenylephrine HCl 1 mg STK-MED ONCE IV ; Start 12/25/16 at 09:46; Stop 12/25/16 at 09:47; Status DC Sodium Chloride 1,000 ml @ 100 mls/hr Q10H IV Last administered on 12/27/16 22:56; Start 12/25/16 at 11:30 Meropenem 500 mg/ Sodium Chloride 50 ml @ 100 mls/hr Q6HRS IV Last administered on 12/28/16 06:33; Start 12/26/16 at 07:00; Stop 12/28/16 at 07:48 ; Status DC Ciprofloxacin (Cipro) 250 mg BID PO Last administered on 12/28/16 08:00; Start 12/28/16 at 09:00 Active Scripts Active Reported Carvedilol 12.5 Mg Tablet 1 Tab PO BID Aspirin 81 Mg Tab.chew 1 Tab PO DAILY Losartan-Hctz 100-25 Mg Tab (Losartan/Hydrochlorothiazide) 1 Each Tablet 1 Tab PO DAILY Amlodipine Besylate 5 Mg Tablet 5 Mg PO DAILY Pravastatin Sodium 40 Mg Tablet 1 Tab PO QHS Metformin Hcl 500 Mg Tablet 500 Mg PO BIDWMEALS Vitals/I & O Vital Sign - Last 24 Hours 12/27/16 12/27/16 12/27/16 12/27/16 10:49 15:05 17:18 19:10 Temp 97.7 97.7 98.4 97.7 97.7 98.4 Pulse 60 74 74 64 Resp 18 18 20 B/P (MAP) 143/59 (87) 145/90 (108) 145/90 171/86 (114) Pulse Ox 92 93 98 O2 Delivery Nasal Cannula Nasal Cannula Nasal Cannula O2 Flow Rate 3.0 3.0 2.0 12/27/16 12/27/16 12/28/16 12/28/16 20:00 23:10 03:15 07:00 Temp 97.9 98.2 97.4 97.9 98.2 97.4 Pulse 61 65 77 Resp 20 20 20 B/P (MAP) 159/88 (111) 168/78 (108) 200/129 (152) Pulse Ox 94 91 94 O2 Delivery Nasal Cannula Nasal Cannula Nasal Cannula Nasal Cannula O2 Flow Rate 2.0 2.0 2.0 2.0 12/28/16 12/28/16 12/28/16 08:01 08:02 08:12 Pulse 80 80 80 B/P (MAP) 186/87 186/87 186/87 (120) Intake and Output 12/27/16 12/27/16 12/28/16 15:01 23:01 07:01 Intake Total 200 ml 600 ml 260 ml Output Total 1050 ml Balance 200 ml 600 ml -790 ml ISABELLA HAMMOND MD December 28, 2016 08:43
[2016-12-28] MEDS ORDERED: CIPROFLOXACIN HCL 250 MG TABLET. PO SCH (09:00)
[2016-12-28] MEDS: IV NORMAL SALINE 1000ML BAG 1,000 ML IV SCH (09:30)
--- NOTE | 2016-12-28 09:59 | PDOC ---
PULMONARY PROGRESS NOTES Subjective feels better Vitals Vital Signs Date Time Temp Pulse Resp B/P (MAP) Pulse Ox O2 Delivery O2 Flow Rate FiO2 12/28/16 08:12 80 186/87 (120) 12/28/16 08:00 Nasal Cannula 1.0 12/28/16 07:00 97.4 20 94 97.4 General: Alert, No acute distress Lungs: Clear Cardiovascular: S1 Abdomen: Soft Neuro Exam: Alert Extremities: No Edema Skin: Warm Labs Laboratory Tests Test 12/27/16 04:05 12/28/16 05:50 White Blood Count 20.0 x10^3/uL (4.0-11.0) 13.5 x10^3/uL (4.0-11.0) Red Blood Count 4.36 x10^6/uL (3.50-5.40) 4.48 x10^6/uL (3.50-5.40) Hemoglobin 12.9 g/dL (12.0-15.5) 13.1 g/dL (12.0-15.5) Hematocrit 38.7 % (36.0-47.0) 39.7 % (36.0-47.0) Mean Corpuscular Volume 89 fL (79-100) 89 fL (79-100) Mean Corpuscular Hemoglobin 30 pg (25-35) 29 pg (25-35) Mean Corpuscular Hemoglobin Concent 34 g/dL (31-37) 33 g/dL (31-37) Red Cell Distribution Width 13.8 % (11.5-14.5) 13.5 % (11.5-14.5) Platelet Count 105 x10^3/uL (140-400) 130 x10^3/uL (140-400) Neutrophils (%) (Auto) 86 % (31-73) 79 % (31-73) Lymphocytes (%) (Auto) 10 % (24-48) 15 % (24-48) Monocytes (%) (Auto) 4 % (0-9) 5 % (0-9) Eosinophils (%) (Auto) 0 % (0-3) 1 % (0-3) Basophils (%) (Auto) 0 % (0-3) 0 % (0-3) Neutrophils # (Auto) 17.2 x10^3uL (1.8-7.7) 10.7 x10^3uL (1.8-7.7) Lymphocytes # (Auto) 1.9 x10^3/uL (1.0-4.8) 2.0 x10^3/uL (1.0-4.8) Monocytes # (Auto) 0.8 x10^3/uL (0.0-1.1) 0.7 x10^3/uL (0.0-1.1) Eosinophils # (Auto) 0.0 x10^3/uL (0.0-0.7) 0.1 x10^3/uL (0.0-0.7) Basophils # (Auto) 0.1 x10^3/uL (0.0-0.2) 0.0 x10^3/uL (0.0-0.2) Sodium Level 143 mmol/L (136-145) Potassium Level 3.6 mmol/L (3.5-5.1) Chloride Level 109 mmol/L (98-107) Carbon Dioxide Level 25 mmol/L (21-32) Anion Gap 9 (6-14) Blood Urea Nitrogen 32 mg/dL (7-20) Creatinine 0.8 mg/dL (0.6-1.0) Estimated GFR (Cockcroft-Gault) 68.8 Glucose Level 112 mg/dL (70-99) Calcium Level 8.8 mg/dL (8.5-10.1) Laboratory Tests Test 12/28/16 05:50 White Blood Count 13.5 x10^3/uL (4.0-11.0) Red Blood Count 4.48 x10^6/uL (3.50-5.40) Hemoglobin 13.1 g/dL (12.0-15.5) Hematocrit 39.7 % (36.0-47.0) Mean Corpuscular Volume 89 fL (79-100) Mean Corpuscular Hemoglobin 29 pg (25-35) Mean Corpuscular Hemoglobin Concent 33 g/dL (31-37) Red Cell Distribution Width 13.5 % (11.5-14.5) Platelet Count 130 x10^3/uL (140-400) Neutrophils (%) (Auto) 79 % (31-73) Lymphocytes (%) (Auto) 15 % (24-48) Monocytes (%) (Auto) 5 % (0-9) Eosinophils (%) (Auto) 1 % (0-3) Basophils (%) (Auto) 0 % (0-3) Neutrophils # (Auto) 10.7 x10^3uL (1.8-7.7) Lymphocytes # (Auto) 2.0 x10^3/uL (1.0-4.8) Monocytes # (Auto) 0.7 x10^3/uL (0.0-1.1) Eosinophils # (Auto) 0.1 x10^3/uL (0.0-0.7) Basophils # (Auto) 0.0 x10^3/uL (0.0-0.2) Medications Active Scripts Medications Dose Route/Sig Max Daily Dose Days Date Category Carvedilol 12.5 Mg Tablet 1 Tab PO BID 12/24/16 Reported Aspirin 81 Mg Tab.chew 1 Tab PO DAILY 12/24/16 Reported Losartan-Hctz 100-25 Mg Tab (Losartan/Hydrochlorothiazide) 1 Each Tablet 1 Tab PO DAILY 12/24/16 Reported Amlodipine Besylate 5 Mg Tablet 5 Mg PO DAILY 12/24/16 Reported Pravastatin Sodium 40 Mg Tablet 1 Tab PO QHS 12/24/16 Reported Metformin Hcl 500 Mg Tablet 500 Mg PO BIDWMEALS 12/24/16 Reported Impression . 1. Tiny subpleural nodules seen in the right middle and right lower lobe and LLL. This patient is a lifetime nonsmoker and has no known cancers. These nodules are probably noncalcified granulomas. From pulmonary standpoint, I would recommend repeating a CT chest in six months. Her PCP is Dr. Moises Sandoval and the patient will arrange CT follow with him. 2. Renal stone, status post cystoscopy and right retrograde pyelogram and right ureteral stent placement. 3. Nonsmoker. Plan . 1. Noncontrast CT chest reviewed. Tiny 4-5 mm lung nodules, likely benign. 2. I would recommend repeat CT chest in six months. She can be followed up by her PCP Dr. Moises Sandoval who can arrange ct chest. The patient is agreeable with that plan. JUAN EGAN MD December 28, 2016 09:59
[2016-12-28 11:00] VITALS: BP 173/89
--- NOTE | 2016-12-28 12:27 | PDOC3 ---
Discharge Summary Visit Information Date of Admission: December 24, 2016 Date of Discharge: December 28, 2016 Admitting Diagnosis Comment: 1. 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 HYPOTENSION, fluid responsive 3. Geriatric, fall risk 4. UTI 5. SIRS POA (leukocytosis etc) NO SEPSIS 6. Proteus UTI Final Diagnosis Problems Medical Problems: (1) Intractable pain Status: Acute (2) Right ureteral stone Status: Acute Brief Hospital Course Allergies Allergies Coded Allergies Type Severity Reaction Last Updated Verified No Known Drug Allergies 12/25/16 No Vital Signs Vital Signs Date Time Temp Pulse Resp B/P (MAP) Pulse Ox O2 Delivery O2 Flow Rate FiO2 12/28/16 11:00 98.7 63 18 173/89 (117) 94 Nasal Cannula 2.0 98.7 Lab Results Laboratory Tests Test 12/27/16 04:05 12/28/16 05:50 White Blood Count 20.0 x10^3/uL (4.0-11.0) 13.5 x10^3/uL (4.0-11.0) Red Blood Count 4.36 x10^6/uL (3.50-5.40) 4.48 x10^6/uL (3.50-5.40) Hemoglobin 12.9 g/dL (12.0-15.5) 13.1 g/dL (12.0-15.5) Hematocrit 38.7 % (36.0-47.0) 39.7 % (36.0-47.0) Mean Corpuscular Volume 89 fL (79-100) 89 fL (79-100) Mean Corpuscular Hemoglobin 30 pg (25-35) 29 pg (25-35) Mean Corpuscular Hemoglobin Concent 34 g/dL (31-37) 33 g/dL (31-37) Red Cell Distribution Width 13.8 % (11.5-14.5) 13.5 % (11.5-14.5) Platelet Count 105 x10^3/uL (140-400) 130 x10^3/uL (140-400) Neutrophils (%) (Auto) 86 % (31-73) 79 % (31-73) Lymphocytes (%) (Auto) 10 % (24-48) 15 % (24-48) Monocytes (%) (Auto) 4 % (0-9) 5 % (0-9) Eosinophils (%) (Auto) 0 % (0-3) 1 % (0-3) Basophils (%) (Auto) 0 % (0-3) 0 % (0-3) Neutrophils # (Auto) 17.2 x10^3uL (1.8-7.7) 10.7 x10^3uL (1.8-7.7) Lymphocytes # (Auto) 1.9 x10^3/uL (1.0-4.8) 2.0 x10^3/uL (1.0-4.8) Monocytes # (Auto) 0.8 x10^3/uL (0.0-1.1) 0.7 x10^3/uL (0.0-1.1) Eosinophils # (Auto) 0.0 x10^3/uL (0.0-0.7) 0.1 x10^3/uL (0.0-0.7) Basophils # (Auto) 0.1 x10^3/uL (0.0-0.2) 0.0 x10^3/uL (0.0-0.2) Sodium Level 143 mmol/L (136-145) Potassium Level 3.6 mmol/L (3.5-5.1) Chloride Level 109 mmol/L (98-107) Carbon Dioxide Level 25 mmol/L (21-32) Anion Gap 9 (6-14) Blood Urea Nitrogen 32 mg/dL (7-20) Creatinine 0.8 mg/dL (0.6-1.0) Estimated GFR (Cockcroft-Gault) 68.8 Glucose Level 112 mg/dL (70-99) Calcium Level 8.8 mg/dL (8.5-10.1) Laboratory Tests Test 12/28/16 05:50 White Blood Count 13.5 x10^3/uL (4.0-11.0) Red Blood Count 4.48 x10^6/uL (3.50-5.40) Hemoglobin 13.1 g/dL (12.0-15.5) Hematocrit 39.7 % (36.0-47.0) Mean Corpuscular Volume 89 fL (79-100) Mean Corpuscular Hemoglobin 29 pg (25-35) Mean Corpuscular Hemoglobin Concent 33 g/dL (31-37) Red Cell Distribution Width 13.5 % (11.5-14.5) Platelet Count 130 x10^3/uL (140-400) Neutrophils (%) (Auto) 79 % (31-73) Lymphocytes (%) (Auto) 15 % (24-48) Monocytes (%) (Auto) 5 % (0-9) Eosinophils (%) (Auto) 1 % (0-3) Basophils (%) (Auto) 0 % (0-3) Neutrophils # (Auto) 10.7 x10^3uL (1.8-7.7) Lymphocytes # (Auto) 2.0 x10^3/uL (1.0-4.8) Monocytes # (Auto) 0.7 x10^3/uL (0.0-1.1) Eosinophils # (Auto) 0.1 x10^3/uL (0.0-0.7) Basophils # (Auto) 0.0 x10^3/uL (0.0-0.2) Brief Hospital Course Ms. Lobo is a 81 old female admitted for kidney stone, underwent cysto and stent placement but spiked WBC in the high 20s, grew proteus UTI, co managed with ID, no fevers. WBC down to 12. Now on PO cipro 250 BID thru 01/06,. Called to her pharmacy Dw pt and RN Ff up DR blanton 2 weeks Ff up Carlos Lange first week January DispO; home Pt seen and examined time 31 mins> 50% counselling Discharge Information Condition at Discharge: Improved, Stable Disposition/Orders: D/C to Home Scheduled Amlodipine Besylate (Amlodipine Besylate), 5 MG PO DAILY, (Reported) Aspirin (Aspirin), 1 TAB PO DAILY, (Reported) Carvedilol (Carvedilol), 1 TAB PO BID, (Reported) Losartan/Hydrochlorothiazide (Losartan-Hctz 100-25 Mg Tab), 1 TAB PO DAILY, ( Reported) Metformin Hcl (Metformin Hcl), 500 MG PO BIDWMEALS, (Reported) Pravastatin Sodium (Pravastatin Sodium), 1 TAB PO QHS, (Reported) VERÓNICA FERNANDEZ MD December 28, 2016 12:27
== END 2016-12-28 13:00 | disposition home or self-care (01) | DRG 694 ==
LOC: ER 15:06 → 6 SOUTH 15:54
PROVIDERS: ADMIT Internal Medicine Hematology & Oncology; ATTEND Internal Medicine Hematology & Oncology
PROC: 0T768DZ Dilation of Right Ureter with Intraluminal Device, Via Natural or Artificial Opening Endoscopic (ICD-10-PCS; 2016-12-25)
PROC: BT1D1ZZ Fluoroscopy of Right Kidney, Ureter and Bladder using Low Osmolar Contrast (ICD-10-PCS; principal; 2016-12-25 09:30)
DX: N20.2 Calculus of kidney with calculus of ureter (principal); N13.6 Pyonephrosis; R65.10 Systemic inflammatory response syndrome (SIRS) of non-infectious origin without acute organ dysfunction; N39.0 Urinary tract infection, site not specified; B96.4 Proteus (mirabilis) (morganii) as the cause of diseases classified elsewhere; E11.9 Type 2 diabetes mellitus without complications; E78.5 Hyperlipidemia, unspecified; I10 Essential (primary) hypertension; J45.909 Unspecified asthma, uncomplicated; K21.9 Gastro-esophageal reflux disease without esophagitis; K42.9 Umbilical hernia without obstruction or gangrene; K80.20 Calculus of gallbladder without cholecystitis without obstruction; N30.90 Cystitis, unspecified without hematuria; Z96.619 Presence of unspecified artificial shoulder joint; Z79.4 Long term (current) use of insulin; Z90.710 Acquired absence of both cervix and uterus; Z91.81 History of falling
CPT/HCPCS: 36415; 71250; 74000; 74176; 74420; 80048; 80053; 81001; 82947; 83690; 83735; 85007; 85027; 85610; 85730; 87086; 87186; 96365; 96375; C1769; C2617; J0690; J1885; J1956; J2185; J2270; J2370; J2405; J7030; Q9967; 99285-25

== ENCOUNTER 2017-03-31 23:48 | Emergency (ER) | payer MEDICARE ==
[~2017-03-31] VITALS: Ht 149.9 cm; Wt 65.8 kg
[~2017-03-31 23:48] MED LIST: AMLO5TAB2 PO; ASPI-630 PO; CARV12.52 PO; LOSA1TAB17 PO; METF500T4 PO; PRAV40TA2 PO
[2017-04-01] MEDS ORDERED: fentaNYL PF VIAL 100 MCG/2 ML VIAL IV PRN (01:30)
--- NOTE | 2017-04-01 03:18 | RAD ---
CT HEAD AND CERVICAL SPINE WITHOUT CONTRAST History: Fall tonight, contusion and pain. Comparison: None. Procedure: Axial images are obtained of the head from the skull base through the vertex without IV contrast. Noncontrast helical CT of the cervical spine was performed. Axial, sagittal, and coronal reconstructions were obtained. RS compliance statement: One or more of the following individualized dose reduction techniques were utilized for this examination: 1. Automated exposure control 2. Adjustment of the mA and/or kV according to patient size 3. Use of iterative reconstruction technique Head Findings: The ventricles and sulci are normal for the patient's age. No mass-effect, midline shift, hemorrhage or obvious acute infarction is identified. Diffuse periventricular and subcortical white matter low-attenuation is present, suggestive of prior chronic microvascular ischemia. Ventricles and sulci appear age-appropriate. Bone windows demonstrate no significant calvarial abnormality. There is mild mucosal thickening within the left frontal and ethmoid air cells. No air-fluid level is seen. Mastoid air cells are well aerated. Cervical Spine Findings: There is no evidence of acute fracture or dislocation. Vertebral body heights are maintained. Posterior elements are intact. There is straightening of normal cervical lordosis. Minimal anterolisthesis of C2 on C3 is present. Prominent degenerative changes are present throughout the cervical spine. Visualized soft tissues of the neck demonstrate no significant abnormalities. The visualized lung apices are clear. IMPRESSION: 1. No acute intracranial abnormality. Findings of chronic microvascular ischemia. 2. No acute fracture of the cervical spine. Degenerative changes present throughout. Electronically signed by: Jeni Low MD (04/01/2017 3:15 AM) [facility]
[2017-04-01 04:04] VITALS: BP 119/73
--- NOTE | 2017-04-01 04:28 | RAD ---
EXAM: ELBOW RIGHT 3V HISTORY: PAIN POST FALL COMPARISON: January 28, 2013 TECHNIQUE: Frontal, oblique and lateral views of the right elbow are obtained. FINDINGS: No posterior fat pad is seen to suggest effusion or fracture. Significant degenerative changes of the elbow are redemonstrated, with prominent osteophyte formation and joint space narrowing. Radiocapitellar alignment appears maintained. Radial head appears grossly intact. Surrounding soft tissues demonstrate no acute finding. IMPRESSION: No acute osseous injury seen, with significant degenerative changes redemonstrated. Electronically signed by: Jeni Low MD (04/01/2017 4:25 AM) [facility]
--- NOTE | 2017-04-01 07:06 | ED.ADGEN ---
Past Medical History Past Medical History: Arthritis, Arrhythmia, Diabetes-Type II, Hypertension Past Surgical History: Hysterectomy, Other Additional Past Surgical Histo: back, shoulder Alcohol Use: None Drug Use: None Adult General Chief Complaint Chief Complaint: MECHANICAL FALL HPI HPI Patient is a 81 year old woman, history of type 2 diabetes mellitus, hypertension, arthritis, who presents to the emergency department after mechanical fall. Patient states that she had turned off the television, and was ambulating from the living room to her bedroom in the dark, when she lost her balance and fell forward, striking her face on the carpeted floor, states that she then sustained a nosebleed which is been intermittent since that time. Patient reached out and struck her right hand against the ground when she fell is complaining of pain in the "knuckles", she states that she "jammed", her elbow, is complaining of pain in these areas. Denies any loss of consciousness, she does take a baby aspirin daily, c-collar placed upon arousing emergency department based on mechanism action injury. She is denying any loss of consciousness, any nausea or vomiting, any focal weakness numbness or tingling. States she has previous injury to the right elbow. Has not taken any medication for pain prior to coming to the ED. Review of Systems Review of Systems Constitutional: Denies fever or chills. [] Eyes: Denies change in visual acuity. [] HENT: Denies nasal congestion or sore throat. [] Respiratory: Denies cough or shortness of breath. [] Cardiovascular: Denies chest pain or edema. [] GI: Denies abdominal pain, nausea, vomiting, bloody stools or diarrhea. [] : Denies dysuria. [] Musculoskeletal: Denies back pain, complaining of pain in the right elbow and right hand. Integument: Denies rash. [] Neurologic: Denies headache, focal weakness or sensory changes. [] Endocrine: Denies polyuria or polydipsia. [] Lymphatic: Denies swollen glands. [] Psychiatric: Denies depression or anxiety. [] Current Medications Current Medications Current Medications Medications (Trade) Dose Ordered Sig/Nickie Start Time Stop Time Status Last Admin Dose Admin Fentanyl Citrate (Fentanyl 2ml Vial) 25 mcg PRN Q15MIN PRN 04/01/17 01:30 04/01/17 04:50 DC Allergies Allergies Allergies Coded Allergies Type Severity Reaction Last Updated Verified No Known Drug Allergies 12/25/16 No Physical Exam Physical Exam Constitutional: Well developed, well nourished, no acute distress, non-toxic appearance. [] C-collar in place. HENT: Normocephalic, atraumatic, bilateral external ears normal, oropharynx moist, no oral exudates, nose normal. [] No facial tenderness, no septal hematoma or hemotympanum, no bleeding noted in oropharynx. Eyes: PERRLA, EOMI, conjunctiva normal, no discharge. [] Neck: Normal range of motion, patient complains of some tenderness mid cervical region, paraspinal, no step-offs or deformities identified,, rebound rigidity or guarding, supple, no stridor. [] Cardiovascular:Heart rate regular rhythm, no murmur, S1, S2, rubs or gallops. [] Lungs & Thorax: Bilateral breath sounds clear to auscultation, no wheezing, rhonchi, rales. No chest wall crepitus or tenderness. [] Abdomen: Bowel sounds normal, soft, no tenderness, no rebound, rigidity, no guarding, no masses, no pulsatile masses. [] Skin: Warm, dry, no erythema, no rash. [] Back: No tenderness, no CVA tenderness. [] Extremities: Patient with tenderness palpation across the proximal aspect of the second and third digits of the left hand, and tenderness throughout the elbow region, without any obvious deformity, or bony point tenderness or crepitus, full range of motion, no cyanosis, no clubbing, ROM intact, no edema. [] Neurologic: Alert and oriented X 3, normal motor function, normal sensory function, no focal deficits noted. [] Psychologic: Affect normal, judgement normal, mood normal. [] Current Patient Data Vital Signs Vital Signs Date Time Temp Pulse Resp B/P (MAP) Pulse Ox O2 Delivery O2 Flow Rate FiO2 04/01/17 04:04 48 18 119/73 (88) 96 Room Air 04/01/17 00:54 98.1 98.1 EKG EKG Not indicated. [] Radiology/Procedures Radiology/Procedures [][facility] [address] [place] [address] IMAGING REPORT Signed PATIENT: VENECIA HA ACCOUNT: [id number] : 1935 LOCATION: ER AGE: 81 SEX: F EXAM STATUS: REG ER ORD. PHYSICIAN: BAYRON RAMIREZ DO REASON: fall/contusion, PAIN PROCEDURE: CT HEAD AND CERVICAL SPINE WO CT HEAD AND CERVICAL SPINE WITHOUT CONTRAST History: Fall tonight, contusion and pain. Comparison: None. Procedure: Axial images are obtained of the head from the skull base through the vertex without IV contrast. Noncontrast helical CT of the cervical spine was performed. Axial, sagittal, and coronal reconstructions were obtained. PQRS compliance statement: One or more of the following individualized dose reduction techniques were utilized for this examination: 1. Automated exposure control 2. Adjustment of the mA and/or kV according to patient size 3. Use of iterative reconstruction technique Head Findings: The ventricles and sulci are normal for the patient's age. No mass-effect, midline shift, hemorrhage or obvious acute infarction is identified. Diffuse periventricular and subcortical white matter low-attenuation is present, suggestive of prior chronic microvascular ischemia. Ventricles and sulci appear age-appropriate. Bone windows demonstrate no significant calvarial abnormality. There is mild mucosal thickening within the left frontal and ethmoid air cells. No air-fluid level is seen. Mastoid air cells are well aerated. Cervical Spine Findings: There is no evidence of acute fracture or dislocation. Vertebral body heights are maintained. Posterior elements are intact. There is straightening of normal cervical lordosis. Minimal anterolisthesis of C2 on C3 is present. Prominent degenerative changes are present throughout the cervical spine. Visualized soft tissues of the neck demonstrate no significant abnormalities. The visualized lung apices are clear. IMPRESSION: 1. No acute intracranial abnormality. Findings of chronic microvascular ischemia. 2. No acute fracture of the cervical spine. Degenerative changes present throughout. Electronically signed by: Venecia Low MD (04/01/2017 3:15 AM) [facility] DICTATED and SIGNED BY: VENECIA LOW MD DATE: 04/01/17 0308 CC: BAYRON RAMIREZ DO; NOAH GLOVER Jr, MD ~ Impressions: [facility] [address] [place] [address] IMAGING REPORT Signed PATIENT: VENECIA HA ACCOUNT: [id number] : 1935 LOCATION: ER AGE: 81 SEX: F EXAM STATUS: REG ER ORD. PHYSICIAN: BAYRON RAMIREZ DO REASON: fall/pain PROCEDURE: ELBOW RIGHT 3V EXAM: ELBOW RIGHT 3V HISTORY: PAIN POST FALL COMPARISON: January 28, 2013 TECHNIQUE: Frontal, oblique and lateral views of the right elbow are obtained. FINDINGS: No posterior fat pad is seen to suggest effusion or fracture. Significant degenerative changes of the elbow are redemonstrated, with prominent osteophyte formation and joint space narrowing. Radiocapitellar alignment appears maintained. Radial head appears grossly intact. Surrounding soft tissues demonstrate no acute finding. IMPRESSION: No acute osseous injury seen, with significant degenerative changes redemonstrated. Electronically signed by: Venecia Low MD (04/01/2017 4:25 AM) [facility] [place] DICTATED and SIGNED BY: VENECIA LOW MD DATE: 04/01/17421 CC: BAYRON RAMIREZ DO; NOAH GLOVER Jr, MD ~ Hand x-ray: Three-view: No fracture subluxation, no bony or soft tissue acute abnormality identified, patient with significant arthritis and degenerative changes. As interpreted by me. Course & Med Decision Making Course & Med Decision Making Pertinent Labs and Imaging studies reviewed. (See chart for details) C-collar in place, patient agreed to receiving imaging of the head and neck, palpation of the facial bones does not reveal any tenderness, no hemotympanum also for hematoma identified. Imaging of head and neck is unremarkable, x-ray of hand, elbow obtained reveals evidence of degenerative changes but no acute or concerning findings. Discussed with patient, who is relieved with these findings, c-collar was cleared without issue, patient was ambulated in the ED without issue, using her cane. We discussed safe home ambulation, and concerning symptoms that prompt return to the ED. Patient discharged home in stable condition with family with plan and precautions as stated. Dragon Disclaimer Dragon Disclaimer This electronic medical record was generated, in whole or in part, using a voice recognition dictation system. Departure Impression: Primary Impression: Fall Additional Impression: Facial contusion Disposition: 01 HOME, SELF-CARE Condition: IMPROVED Problem Qualifiers BAYRON RAMIREZ DO Apr 01, 2017 07:06
--- NOTE | 2017-04-01 07:19 | RAD ---
Right hand, 3 views, 04/01/2017: History: Fall, pain There is patchy bony demineralization. There are extensive hypertrophic degenerative changes at scattered interphalangeal joints and the first CMC joint. There are periarticular calcifications at the first MCP level. There is moderate degenerative change at the radiocarpal articulation. No acute fracture or dislocation is identified. IMPRESSION: 1. Demineralization. 2. Moderate severe degenerative change. 3. No acute bony abnormality is detected.
== END 2017-04-01 04:50 | disposition home or self-care (01) ==
LOC: ER 23:48
DX: S00.83XA Contusion of other part of head, initial encounter (principal); I10 Essential (primary) hypertension; E11.9 Type 2 diabetes mellitus without complications; M19.90 Unspecified osteoarthritis, unspecified site; W18.09XA Striking against other object with subsequent fall, initial encounter; Y93.89 Activity, other specified; Y92.89 Other specified places as the place of occurrence of the external cause; Y99.8 Other external cause status
CPT/HCPCS: 70450; 72125; 73080; 73130; 99284-25

== ENCOUNTER 2018-03-10 02:50 | Inpatient (IN) | payer MEDICARE ==
[2018-03-10 03:21] LABS: BILIRUBIN,URINE NEGATIVE (NEG); CLARITY,URINE CLEAR; COLOR,URINE YELLOW; GLUCOSE,URINE NEGATIVE (NEG); NITRITE,URINE NEGATIVE (NEG); PH,URINE 7.5; PROTEIN,URINE NEGATIVE (NEG-TRACE); UROBILINOGEN,URINE 0.2 mg/dL (0.2 mg/dL)
[2018-03-10 03:34] LABS: BACTERIA,URINE FEW /HPF (0-FEW); RBC,URINE 20-40 /HPF (0-2); SQUAMOUS EPITHELIAL CELL,UR OCC /LPF; WBC,URINE OCC /HPF (0-4)
[2018-03-10 04:05] LABS: ADD MAN DIFF? NO
[2018-03-10 04:07] LABS: BASO % 0 % (0-3); EOS # 0.3 x10^3/uL (0.0-0.7); EOS % 4 % (0-3); HEMOGLOBIN 15.7 g/dL (12.0-15.5); LYMPH # 1.4 x10^3/uL (1.0-4.8); LYMPH % 16 % (24-48); MEAN CORPUSCULAR HEMOGLOBIN 31 pg (25-35); MEAN CORPUSCULAR HGB CONC 35 g/dL (31-37); MEAN CORPUSCULAR VOLUME 89 fL (79-100); MONO # 0.7 x10^3/uL (0.0-1.1); MONO % 8 % (0-9); NEUT # 6.5 x10^3uL (1.8-7.7); NEUT % 73 % (31-73); PLATELET COUNT 182 x10^3/uL (140-400); RED BLOOD COUNT 5.09 x10^6/uL (3.50-5.40); RED CELL DISTRIBUTION WIDTH 13.6 % (11.5-14.5)
[2018-03-10 04:15] LABS: ANION GAP 7 (6-14); BLOOD UREA NITROGEN 16 mg/dL (7-20); CALCIUM 9.8 mg/dL (8.5-10.1); CARBON DIOXIDE 29 mmol/L (21-32); CHLORIDE 101 mmol/L (98-107); GFR 53.1; GLUCOSE 138 mg/dL (70-99); POTASSIUM 3.6 mmol/L (3.5-5.1); SODIUM 137 mmol/L (136-145)
[2018-03-10] MEDS: KETOROLAC 15 MG/ML VIAL. IV (06:20)
[2018-03-10] MEDS ORDERED: ONDANSETRON PF 4 MG/2 ML VIAL. IV (06:30)
[2018-03-10] MEDS ORDERED: fentaNYL PF VIAL 100 MCG/2 ML VIAL IV (06:30)
[2018-03-10] MEDS: IV NORMAL SALINE 1000ML BAG 1,000 ML IV ×2 (09:00→20:24)
[2018-03-11 05:10] LABS: ADD MAN DIFF? NO
[2018-03-11 05:25] LABS: BASO % 0 % (0-3); EOS # 0.2 x10^3/uL (0.0-0.7); EOS % 4 % (0-3); HEMATOCRIT 41.5 % (36.0-47.0); HEMOGLOBIN 14.2 g/dL (12.0-15.5); LYMPH # 1.6 x10^3/uL (1.0-4.8); LYMPH % 29 % (24-48); MEAN CORPUSCULAR HEMOGLOBIN 30 pg (25-35); MEAN CORPUSCULAR HGB CONC 34 g/dL (31-37); MEAN CORPUSCULAR VOLUME 88 fL (79-100); MONO # 0.6 x10^3/uL (0.0-1.1); MONO % 11 % (0-9); NEUT # 3.1 x10^3uL (1.8-7.7); NEUT % 56 % (31-73); PLATELET COUNT 146 x10^3/uL (140-400); RED CELL DISTRIBUTION WIDTH 13.6 % (11.5-14.5); WHITE BLOOD COUNT 5.5 x10^3/uL (4.0-11.0)
[2018-03-11 06:20] LABS: ANION GAP 9 (6-14); BLOOD UREA NITROGEN 14 mg/dL (7-20); CALCIUM 8.4 mg/dL (8.5-10.1); CARBON DIOXIDE 28 mmol/L (21-32); CHLORIDE 105 mmol/L (98-107); CREATININE 0.7 mg/dL (0.6-1.0); GFR 80.1; GLUCOSE 118 mg/dL (70-99); SODIUM 142 mmol/L (136-145)
[2018-03-11 06:21] LABS: POTASSIUM 2.9 mmol/L (3.5-5.1)
[2018-03-11] MEDS ORDERED: MORPHINE SULFATE 2 MG/ML DISP.SYRIN. IV (07:00)
[2018-03-11] MEDS ORDERED: ONDANSETRON PF 4 MG/2 ML VIAL. IV (07:00)
[2018-03-11] MEDS ORDERED: fentaNYL PF VIAL 100 MCG/2 ML VIAL IV (07:00)
[2018-03-11] MEDS ORDERED: PROCHLORPERAZINE 10 MG/2 ML VIAL. IV (07:00)
[2018-03-11] MEDS ORDERED: LIDOCAINE 1% PF 2 ML VIAL. ID (07:00)
[2018-03-11] MEDS: POTASSIUM CHLORIDE 20 MEQ TABLET.ER. PO ×2 (07:15→23:42)
[2018-03-11] MEDS: LORazepam 0.5 MG TABLET PO (08:36)
[2018-03-11] MEDS ORDERED: ceFAZolin 2GM PREMIX 2 GM/50 ML BAG IV (14:00)
[2018-03-11] MEDS: IV RINGERS,LACTATED 1000ML 1,000 ML IV (14:30)
[2018-03-11] MEDS ORDERED: LIDOCAINE 2% PF Vial for OR 5 ML VIAL. (14:33)
[2018-03-11] MEDS ORDERED: PROPOFOL 20 ML IV (14:33)
[2018-03-11] MEDS ORDERED: fentaNYL PF VIAL 100 MCG/2 ML VIAL (14:34)
[2018-03-11 14:39] LABS: POC GLUCOSE 88 mg/dL (70-99)
[2018-03-11] MEDS ORDERED: DEXAMETHASONE SOD PHOS 20 MG/5 ML VIAL. (16:14)
[2018-03-11] MEDS ORDERED: FAMOTIDINE 20 MG/2 ML VIAL (16:14)
[2018-03-11] MEDS ORDERED: ONDANSETRON PF 4 MG/2 ML VIAL. (16:14)
[2018-03-11] MEDS ORDERED: GLYCOPYRROLATE 1 MG/5 ML VIAL. (16:47)
[2018-03-11] MEDS: IOHEXOL 300 MG/ML 100ML VIAL. (16:50)
[2018-03-11] MEDS: fentaNYL PF VIAL 100 MCG/2 ML VIAL IV (19:44)
[2018-03-11] MEDS: LABETALOL 20 MG/4 ML DISP.SYRIN. IVP (20:03)
[2018-03-11] MEDS: amLODIPine BESYLATE 5 MG TABLET PO (20:05)
[2018-03-11] MEDS: CARVEDILOL 12.5 MG TABLET. PO (20:11)
[2018-03-12 04:56] LABS: BASO % 0 % (0-3); EOS % 0 % (0-3); HEMATOCRIT 42.1 % (36.0-47.0); HEMOGLOBIN 14.5 g/dL (12.0-15.5); LYMPH # 0.6 x10^3/uL (1.0-4.8); LYMPH % 4 % (24-48); MEAN CORPUSCULAR HEMOGLOBIN 30 pg (25-35); MEAN CORPUSCULAR HGB CONC 35 g/dL (31-37); MEAN CORPUSCULAR VOLUME 88 fL (79-100); MONO # 0.8 x10^3/uL (0.0-1.1); MONO % 6 % (0-9); NEUT % 91 % (31-73); PLATELET COUNT 146 x10^3/uL (140-400); RED BLOOD COUNT 4.77 x10^6/uL (3.50-5.40); RED CELL DISTRIBUTION WIDTH 13.3 % (11.5-14.5); WHITE BLOOD COUNT 15.4 x10^3/uL (4.0-11.0)
[2018-03-12 05:10] LABS: ANION GAP 7 (6-14); BLOOD UREA NITROGEN 14 mg/dL (7-20); CALCIUM 8.8 mg/dL (8.5-10.1); CARBON DIOXIDE 28 mmol/L (21-32); CHLORIDE 104 mmol/L (98-107); CREATININE 0.9 mg/dL (0.6-1.0); GFR 59.9; GLUCOSE 168 mg/dL (70-99); POTASSIUM 3.6 mmol/L (3.5-5.1); SODIUM 139 mmol/L (136-145)
[2018-03-12 05:20] LABS: ADD MAN DIFF? YES
[2018-03-12 07:36] LABS: CA 19-9 50 U/mL (0-35)
[2018-03-12 08:13] LABS: % BANDS 6 % (0-9); % LYMPHS 3 % (24-48); % MONOS 5 % (0-10); % SEGS 86 % (35-66)
[2018-03-12 08:29] LABS: PLT ESTIMATE ADEQUATE (ADEQUATE)
[2018-03-12] MEDS: CARVEDILOL 12.5 MG TABLET. PO ×2 (09:09→17:12)
[2018-03-12] MEDS: ACETAMINOPHEN 325 MG TABLET. PO (09:10)
[2018-03-12] MEDS: cefTRIAXone IV Push 1 GM VIAL. IVP (11:04)
[2018-03-12] MEDS: CITALOPRAM 20 MG TABLET. PO (13:26)
[2018-03-12] MEDS: amLODIPine BESYLATE 5 MG TABLET PO (13:26)
[2018-03-12] MEDS ORDERED: CARVEDILOL 12.5 MG TABLET. PO (17:00)
[2018-03-12] MEDS: OXYBUTYNIN CHLORIDE 5 MG TABLET PO (20:02)
[2018-03-12] MEDS: LACTOBACILLUS RHAMNOSUS GG 1 CAPSULE. PO (20:02)
[2018-03-12] MEDS: ATORVASTATIN CALCIUM 10 MG TABLET. PO (20:02)
[2018-03-12] MEDS ORDERED: FAMOTIDINE 20 MG TABLET. PO (21:00)
[2018-03-13 06:06] LABS: ADD MAN DIFF? NO
[2018-03-13 06:09] LABS: BASO % 0 % (0-3); EOS # 0.1 x10^3/uL (0.0-0.7); EOS % 1 % (0-3); HEMATOCRIT 37.3 % (36.0-47.0); LYMPH % 22 % (24-48); MEAN CORPUSCULAR HEMOGLOBIN 31 pg (25-35); MEAN CORPUSCULAR HGB CONC 35 g/dL (31-37); MEAN CORPUSCULAR VOLUME 88 fL (79-100); MONO # 0.7 x10^3/uL (0.0-1.1); MONO % 8 % (0-9); NEUT # 6.2 x10^3uL (1.8-7.7); NEUT % 69 % (31-73); PLATELET COUNT 137 x10^3/uL (140-400); RED BLOOD COUNT 4.23 x10^6/uL (3.50-5.40); RED CELL DISTRIBUTION WIDTH 13.4 % (11.5-14.5)
[2018-03-13 06:35] LABS: ANION GAP 4 (6-14); BLOOD UREA NITROGEN 18 mg/dL (7-20); CALCIUM 8.5 mg/dL (8.5-10.1); CARBON DIOXIDE 30 mmol/L (21-32); CHLORIDE 105 mmol/L (98-107); CREATININE 0.8 mg/dL (0.6-1.0); GFR 68.7; GLUCOSE 121 mg/dL (70-99); POTASSIUM 3.3 mmol/L (3.5-5.1); SODIUM 139 mmol/L (136-145)
[2018-03-13] MEDS: CITALOPRAM 20 MG TABLET. PO (08:11)
[2018-03-13] MEDS: CARVEDILOL 12.5 MG TABLET. PO (08:11)
[2018-03-13] MEDS: LACTOBACILLUS RHAMNOSUS GG 1 CAPSULE. PO (08:11)
[2018-03-13] MEDS: amLODIPine BESYLATE 5 MG TABLET PO (08:12)
[2018-03-13] MEDS: POTASSIUM CHLORIDE 20 MEQ TABLET.ER. PO (11:05)
[2018-03-13] MEDS: cefTRIAXone IV Push 1 GM VIAL. IVP (11:06)
== END 2018-03-13 12:36 | disposition home or self-care (01) | DRG 669 ==
LOC: ER 02:50 → 5 SOUTH 06:20
PROC: 0T778DZ Dilation of Left Ureter with Intraluminal Device, Via Natural or Artificial Opening Endoscopic (ICD-10-PCS; principal; 2018-03-11 16:00)
PROC: 0TC78ZZ Extirpation of Matter from Left Ureter, Via Natural or Artificial Opening Endoscopic (ICD-10-PCS; 2018-03-11 16:00)
PROC: 0TC48ZZ Extirpation of Matter from Left Kidney Pelvis, Via Natural or Artificial Opening Endoscopic (ICD-10-PCS; 2018-03-11 16:00)
DX: N13.2 Hydronephrosis with renal and ureteral calculous obstruction (principal); N30.80 Other cystitis without hematuria; K80.20 Calculus of gallbladder without cholecystitis without obstruction; E11.9 Type 2 diabetes mellitus without complications; E78.5 Hyperlipidemia, unspecified; I10 Essential (primary) hypertension; M19.90 Unspecified osteoarthritis, unspecified site; K86.89 Other specified diseases of pancreas; I49.9 Cardiac arrhythmia, unspecified; N28.1 Cyst of kidney, acquired; Z83.3 Family history of diabetes mellitus; Z90.710 Acquired absence of both cervix and uterus
CPT/HCPCS: 36415; 74018; 74176; 74181; 76000; 80048; 81001; 82962; 85007; 85025; 86301; 87040; 93005; 99285; 99285-25; A7015; C1769; C2617; J0690; J0696; J1100; J1885; J2001; J2405; J2704; J3010; J3490; J7030; J7120; Q9967; S0028

== ENCOUNTER → 2021-03-22 | Outpatient (CLI) | payer MEDICARE ==
[2020-06-04 15:00] VITALS: BP 132/74
[~2021-03-22] MED LIST changes: +ALBU2.5V8 NEB; +AMLO-186 PO; -AMLO5TAB2 PO; +APIX5TAB PO; +ATOR80TA72 PO; +CARV12.511 PO; -CARV12.52 PO; +CARV12.53 PO; +CITA20TA6 PO; +CITA20TA9 PO; -LOSA1TAB17 PO; +LOSA1TAB22 PO; +METF500T16 PO; -METF500T4 PO; +METO50TA6 PO; +OXYB5TAB10 PO; +OXYC-59 PO; +POLY17PO52 PO; +RANI-369 PO
--- NOTE | 2021-03-22 17:00 | CARD ---
MR#: [id number] Date of Study: 03/22/2021 Ordering Physician: LEWIS HERNANDEZ, Referring Physician: LEWIS HERNANDEZ, Tech: Jeni Nunezzakyves, [facility] APPROVED REPORT EXAM: Two-dimensional and M-mode echocardiogram with Doppler and color Doppler. Other Information Quality : AverageHR: 63bpm INDICATION Pulmonary Hypertention RISK FACTORS Hypertension Hyperlipidemia 2D DIMENSIONS Left Atrium(2D)3.5 (1.6-4.0cm)IVSd1.1 (0.7-1.1cm) Aortic Root(2D)3.8 (2.0-3.7cm)LVDd4.9 (3.9-5.9cm) LVOT Diameter2.1 (1.8-2.4cm)PWd0.9 (0.7-1.1cm) LVDs3.3 (2.5-4.0cm)FS (%) 32.3 % SV66.9 mlLVEF(%)55.5 (>50%) Aortic Valve AoV Peak Booker.94.3cm/sAoV VTI19.3cm AO Peak GR.3.6mmHgLVOT Peak Booker.57.9cm/s LVOT VTI 12.56cmAO Mean GR.2mmHg NATASHA (VMAX)1.47yw7SMP (VTI)2.29cm2 AI P 1/2 [id number] Mitral Valve MV E Jrskmiew86.6cm/sMV DECEL [id number] MV A Oovtjluq92.9cm/sMV [id number] E/A Ratio2.9MVA (PHT)4.98cm2 TDI E/Lateral E'8.5E/Medial E'8.4 Pulmonary Valve PV Peak Plvznxwp18.2cm/sPV Peak Grad.2mmHg Tricuspid Valve TR P. Xpuefpxh791gd/sRAP OAVTPHHE0gtRe TR Peak Gr.49kmKtCFKO54heFl LEFT VENTRICLE The left ventricle is normal size. There is mild concentric left ventricular hypertrophy. The left ve ntricular systolic function is normal. The ejection fraction is 60-65%. There is normal LV segmental wall motion. Tissue Doppler imaging reveals moderate left ventricular diastolic dysfunction. RIGHT VENTRICLE There is normal right ventricular wall thickness. The right ventricular systolic function is normal. ATRIA The left atrium is moderately dilated. The right atrium is moderately dilated. The interatrial septum is intact with no evidence for an atrial septal defect or patent foramen ovale as noted on 2-D or Do ppler imaging. AORTIC VALVE The aortic valve is normal in structure and function. Doppler and Color Flow revealed mild aortic reg urgitation. There is no significant aortic valvular stenosis. Calculated aortic valve area is 2.32 cm 2 with maximum pressure gradient of 4 mmHg and mean pressure gradient of 2 mmHg. MITRAL VALVE The mitral valve is normal in structure and function. There is no evidence of mitral valve prolapse. There is no mitral valve stenosis. Doppler and Color-flow revealed trace mitral regurgitation. TRICUSPID VALVE The tricuspid valve is normal in structure and function. Doppler and Color Flow revealed trace tricus pid regurgitation with an estimated PAP of 36 mmHg. There is no tricuspid valve stenosis. PULMONIC VALVE The pulmonary valve is normal in structure and function. Doppler and Color Flow revealed mild to mode rate pulmonic valvular regurgitation. GREAT VESSELS The aortic root is borderline dilated measuring 3.7 cm. The ascending aorta is Mildly dilated measuri ng 3.8 cm. The IVC is normal in size and collapses >50% with inspiration. PERICARDIAL EFFUSION There is no evidence of significant pericardial effusion. Critical Notification Critical Value: No <Conclusion> The left ventricular systolic function is normal. The ejection fraction is 60-65%. There is normal LV segmental wall motion. Tissue Doppler imaging reveals moderate left ventricular diastolic dysfunction. Mild aortic regurgitation. Trace mitral regurgitation. Trace tricuspid regurgitation with an estimated PAP of 36 mmHg. There is no evidence of significant pericardial effusion. Signed by : Marlon Gaming, Electronically Approved : 03/22/2021 16:59:43
== END ==
LOC: ECHO 10:53
PROVIDERS: ATTEND Internal Medicine Cardiovascular Disease
DX: I08.8 Other rheumatic multiple valve diseases (principal); I27.20 Pulmonary hypertension, unspecified
CPT/HCPCS: 93306

== ENCOUNTER 2021-09-15 19:59 | Emergency (ER) | payer MEDICARE ==
[~2021-09-15] VITALS: Ht 160 cm; Wt 72.7 kg
--- NOTE | 2021-09-15 20:21 | RAD ---
AP pelvis x-ray HISTORY: Fall, pelvic pain. COMPARISON: Pelvic x-ray June 22, 2020 FINDINGS: Intramedullary nail and screw fixation of the right femoral head and neck and trochanteric femur again demonstrated the nail extends outside the field of view down the shaft of the femur. No f racture. No dislocation. Bowel gas lucency somewhat obscures visualization of the sacrum. Advanced ri ght hip osteoarthritis with joint space narrowing and bulky bone spurring. There is mild spurring of the acetabulum of the left hip. IMPRESSION: No acute osseous injury. Electronically signed by: Alonso Moore MD (09/15/2021 8:19 PM) PAIGE
--- NOTE | 2021-09-15 20:24 | PHYS DOC ---
Past Medical History Past Medical History: Arthritis, Arrhythmia, Hypertension, Other Additional Past Medical Histor: diet controlled DM Past Surgical History: Hysterectomy, Other Additional Past Surgical Histo: back, shoulder Smoking Status: Never Smoker Alcohol Use: None Drug Use: None General Adult EDM: Chief Complaint: TRAUMA ALERT HPI: HPI: Patient is a 86 year old female past medical history dementia presents via EMS for evaluation after a fall. Prior to arrival patient was found by family laying on the bathroom floor. Patient states she fell but does not recall preceding events-- states she may have fallen due to her slippers. Patient complains of right-sided neck pain and right pelvis pain. On exam patient is alert she moves bilateral upper extremities passively and actively without pain. Patient moves left lower extremity passively and actively without pain. Patient lifts her right leg and has pain with range of motion. There is no deformities noted of any extremities. Patient denies any chest pain dizziness or shortness of breath. Review of Systems: Review of Systems: Review of systems: Constitutional symptoms- No fever, no chills. Eyes- No Discharge, No Visual Loss Respiratory symptoms- No shortness of breath, No wheezing, No Dyspnea on Exertion Cardiovascular Systems; No chest pain, No Palpitations, No syncope Gastrointestinal symptoms: NO abdominal pain, no nausea, no vomiting or diarrhea. Genitourinary symptoms: No dysuria. Musculoskeletal symptoms: No back pain positive neck pain positive right leg pain NEUROLOGICAL Symptoms: No headache, no generalized weakness; No focal Weakness Skin: No rash. Heart Score: C/O Chest Pain: N/A Risk Factors: Risk Factors: DM, Current or recent (<one month) smoker, HTN, HLP, family history of CAD, obesity. Risk Scores: Score 0 - 3: 2.5% MACE over next 6 weeks - Discharge Home Score 4 - 6: 20.3% MACE over next 6 weeks - Admit for Clinical Observation Score 7 - 10: 72.7% MACE over next 6 weeks - Early Invasive Strategies Allergies: Allergies: Allergies Coded Allergies Type Severity Reaction Last Updated Verified No Known Drug Allergies 05/28/20 No Physical Exam: PE: Constitutional: Well developed, well nourished, no acute distress, non-toxic appearance. [] HENT: Normocephalic, atraumatic, bilateral external ears normal, oropharynx moist, no oral exudates, nose normal. [] Eyes: PERRLA, EOMI, conjunctiva normal, no discharge. [] Neck: Normal range of motion, no tenderness, supple, no stridor. [no midline c spine tenderness step off or deformity. patient with paraspinal tenderness on the right level c1 occipital] Cardiovascular:Heart rate regular rhythm, no murmur [] Lungs & Thorax: Bilateral breath sounds clear to auscultation [] Abdomen: Bowel sounds normal, soft, no tenderness, no masses, no pulsatile masses. [] Skin: Warm, dry, no erythema, no rash. [] Back: No tenderness, no CVA tenderness. [] Extremities: No tenderness, no cyanosis, no clubbing, ROM intact, no edema. [pain with ROM right hip] Neurologic: Alert normal motor function, normal sensory function, no focal deficits noted. [] Psychologic: Affect normal, judgement normal, mood normal. [] EKG: EKG: [] Performed at 2005 Rate 91 A. 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 Generalized brain atrophy. Cerebral periventricular white matter hypoattenuation likely advanced changes of chronic microvascular ischemic disease. No intracranial hemorrhage, mass or hydrocephalus. Orbits, mastoids and bones are unremarkable. IMPRESSION: No acute intracranial CT abnormality. See above. CT cervical spine findings: Craniocervical junction is intact. No fracture of the cervical spine. Cervical disc height loss, disc osteophytes and uncovertebral and facet spurring the spinal canal and neural foraminal stenoses at several levels with particular severe stenotic disease noted at C5-C6. At the right dorsal paraspinal muscles at the C3-C7 vertebral levels there is mild hyperdense expansion of these muscles with mass effect suggesting an intramuscular hematoma measuring 3 cm in diameter and approximately 6 cm in length. Lung apices and paraspinal tissues are unremarkable. IMPRESSION: 1. No acute osseous injury of the cervical spine. 2. Cervical disc disease and arthritis as described above. 3. [place] hyperdense mass expanding the right dorsal paraspinal muscles of the cervical spine, most likely an acute intramuscular hematoma from muscle injury. Follow-up is advised to document that this resolves to exclude the less likely possibility of a nonhemorrhagic mass lesion. Course & Med Decision Making: Course & Med Decision Making Pertinent Labs and Imaging studies reviewed. (See chart for details) []Evaluated for chief complaint. No acute fracture or intracranial traumatic injury. Patient ambulated with walker. Plan to DC patient home. Eboni Disclaimer: Eboni Disclaimer: This electronic medical record was generated, in whole or in part, using a voice recognition dictation system. Departure Departure Impression: Primary Impression: Fall Additional Impressions: Neck pain Hip pain Disposition: 01 HOME / SELF CARE / HOMELESS Condition: STABLE Referrals: KD MALLOY MD (PCP) Patient Instructions: Cervical Strain and Sprain with [facility], Fall Prevention and Home Safety BA WAGNER DO Sep 15, 2021 20:24
--- NOTE | 2021-09-15 20:45 | RAD ---
CT head without contrast. CT cervical spine without contrast. PQRS statement: CT scans at this facility use dose reduction including either automated exposure cont rol, iterative reconstructions, and /or weight based radiation dosing via mA and kV modification when appropriate to reduce radiation dose to as low as reasonably achievable. HISTORY: Fall injury. CT head findings: Encephalomalacia left occipital lobe with ex vacuo enlargement of the left atrium l ikely due to chronic ischemic infarct. Generalized brain atrophy. Cerebral periventricular white bran er hypoattenuation likely advanced changes of chronic microvascular ischemic disease. No intracranial hemorrhage, mass or hydrocephalus. Orbits, mastoids and bones are unremarkable. IMPRESSION: No acute intracranial CT abnormality. See above. CT cervical spine findings: Craniocervical junction is intact. No fracture of the cervical spine. Cer vical disc height loss, disc osteophytes and uncovertebral and facet spurring the spinal canal and ne ural foraminal stenoses at several levels with particular severe stenotic disease noted at C5-C6. At the right dorsal paraspinal muscles at the C3-C7 vertebral levels there is mild hyperdense expansion of these muscles with mass effect suggesting an intramuscular hematoma measuring 3 cm in diameter and approximately 6 cm in length. Lung apices and paraspinal tissues are unremarkable. IMPRESSION: 1. No acute osseous injury of the cervical spine. 2. Cervical disc disease and arthritis as described above. 3. [place] hyperdense mass expanding the right dorsal paraspinal muscles of the cervical spine, most l ikely an acute intramuscular hematoma from muscle injury. Follow-up is advised to document that this resolves to exclude the less likely possibility of a nonhemorrhagic mass lesion. Electronically signed by: Alonso Moore MD (09/15/2021 8:42 PM) [facility]
[2021-09-15 21:18] VITALS: BP 148/87
--- NOTE | 2021-09-16 01:46 | EKG ---
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
--- NOTE | 2021-09-27 12:47 | EKG ---
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
== END 2021-09-15 21:25 | disposition home or self-care (01) ==
LOC: ER 19:59
DX: M54.2 Cervicalgia (principal); M25.551 Pain in right hip; G89.11 Acute pain due to trauma; M16.11 Unilateral primary osteoarthritis, right hip; I10 Essential (primary) hypertension; Z90.710 Acquired absence of both cervix and uterus; W18.39XA Other fall on same level, initial encounter; Y93.89 Activity, other specified; Y92.89 Other specified places as the place of occurrence of the external cause; Y99.8 Other external cause status
CPT/HCPCS: 70450; 72125; 72170; 93005; 99285-25

== ENCOUNTER 2021-10-10 17:46 | Emergency (ER) | payer MEDICARE ==
[~2021-10-10] VITALS: Ht 149.9 cm; Wt 68.6 kg
[2021-10-10 18:24] LABS: BASO % 1 % (0-3); EOS # 0.3 x10^3/uL (0.0-0.7); EOS % 3 % (0-3); HEMATOCRIT 46.8 % (36.0-47.0); HEMOGLOBIN 15.6 g/dL (12.0-15.5); LYMPH % 25 % (24-48); MEAN CORPUSCULAR HEMOGLOBIN 30 pg (25-35); MEAN CORPUSCULAR HGB CONC 33 g/dL (31-37); MEAN CORPUSCULAR VOLUME 91 fL (79-100); MONO # 0.7 x10^3/uL (0.0-1.1); MONO % 9 % (0-9); NEUT % 62 % (31-73); PLATELET COUNT 173 x10^3/uL (140-400); RED BLOOD COUNT 5.14 x10^6/uL (3.50-5.40); RED CELL DISTRIBUTION WIDTH 14.2 % (11.5-14.5)
[2021-10-10 18:32] LABS: CALCIUM 9.1 mg/dL (8.5-10.1); CREATININE 0.9 mg/dL (0.6-1.0); GFR 59.4; POTASSIUM 3.8 mmol/L (3.5-5.1)
[2021-10-10 18:38] LABS: ALBUMIN 3.7 g/dL (3.4-5.0); MAGNESIUM 1.9 mg/dL (1.8-2.4); TOTAL BILIRUBIN 0.6 mg/dL (0.2-1.0); TOTAL PROTEIN 7.3 g/dL (6.4-8.2)
--- NOTE | 2021-10-10 18:45 | PHYS DOC ---
Past Medical History Past Medical History: Arthritis, Arrhythmia, Hypertension, Other Additional Past Medical Histor: diet controlled DM Past Surgical History: Hysterectomy, Other Additional Past Surgical Histo: back, shoulder, HIP Smoking Status: Never Smoker Alcohol Use: None Drug Use: None General Adult EDM: Chief Complaint: HIP PAIN HPI: HPI: Patient is a 86 year old female who presents the ED today from a doctor's office to be evaluated for right hip fracture, patient fell a week ago, patient states an x-ray was done at the doctor's office which showed right hip fracture. Patient is complaining of 5 out of 10 sharp intermittent right hip pain worse on ambulation though she is weight bearing on the affected extremity. Patient has history multiple falls, patient denies any loss of consciousness from any of the falls, denies any head pain, neck or low back pain. Patient was seen in the ED a month ago after falling too and had a negative work up. Review of Systems: Review of Systems: Constitutional: Denies fever or chills. [] Eyes: Denies change in visual acuity. [] HENT: Denies nasal congestion or sore throat. [] Respiratory: Denies cough or shortness of breath. [] Cardiovascular: Denies chest pain or edema. [] GI: Denies abdominal pain, nausea, vomiting, bloody stools or diarrhea. [] : Denies dysuria. [] Musculoskeletal: Reports right hip pain. Denies back pain Integument: Denies rash. [] Neurologic: Denies headache, focal weakness or sensory changes. [] Psychiatric: Denies depression or anxiety. [] Heart Score: C/O Chest Pain: N/A Risk Factors: Risk Factors: DM, Current or recent (<one month) smoker, HTN, HLP, family history of CAD, obesity. Risk Scores: Score 0 - 3: 2.5% MACE over next 6 weeks - Discharge Home Score 4 - 6: 20.3% MACE over next 6 weeks - Admit for Clinical Observation Score 7 - 10: 72.7% MACE over next 6 weeks - Early Invasive Strategies Allergies: Allergies: Allergies Coded Allergies Type Severity Reaction Last Updated Verified No Known Drug Allergies 05/28/20 No Physical Exam: PE: Constitutional: Well developed, well nourished, no acute distress, non-toxic appearance. [] HENT: Normocephalic, atraumatic, bilateral external ears normal, oropharynx moist, no oral exudates, nose normal. [] Eyes: PERRLA, EOMI, conjunctiva normal, no discharge. [] Neck: Normal range of motion, no tenderness, supple, no stridor. [] Cardiovascular: Irregular irregular Lungs & Thorax: Bilateral breath sounds clear to auscultation [] Abdomen: Bowel sounds normal, soft, no tenderness, no masses, no pulsatile masses. [] Skin: Warm, dry, no erythema, no rash. [] Back: No tenderness, no CVA tenderness. [] Extremities: Old healed surgical incision noted on the right hip, no obvious deformity noted on the right hip. Tenderness on deep palpation of the right lateral hip. Limited passive range of motion to the right hip. +2 right pedal pulse. Cap refill less than 2 seconds of right lower extremity Neurologic: Alert and oriented X 3, normal motor function, normal sensory function, no focal deficits noted. [] Psychologic: Affect normal, judgement normal, mood normal. [] Current Patient Data: Labs: Laboratory Tests Test 10/10/21 18:10 White Blood Count 8.0 x10^3/uL (4.0-11.0) Red Blood Count 5.14 x10^6/uL (3.50-5.40) Hemoglobin 15.6 g/dL (12.0-15.5) H Hematocrit 46.8 % (36.0-47.0) Mean Corpuscular Volume 91 fL (79-100) Mean Corpuscular Hemoglobin 30 pg (25-35) Mean Corpuscular Hemoglobin Concent 33 g/dL (31-37) Red Cell Distribution Width 14.2 % (11.5-14.5) Platelet Count 173 x10^3/uL (140-400) Neutrophils (%) (Auto) 62 % (31-73) Lymphocytes (%) (Auto) 25 % (24-48) Monocytes (%) (Auto) 9 % (0-9) Eosinophils (%) (Auto) 3 % (0-3) Basophils (%) (Auto) 1 % (0-3) Neutrophils # (Auto) 5.0 x10^3/uL (1.8-7.7) Lymphocytes # (Auto) 2.0 x10^3/uL (1.0-4.8) Monocytes # (Auto) 0.7 x10^3/uL (0.0-1.1) Eosinophils # (Auto) 0.3 x10^3/uL (0.0-0.7) Basophils # (Auto) 0.0 x10^3/uL (0.0-0.2) Prothrombin Time 17.0 SEC (11.7-14.0) H Prothrombin Time INR 1.4 (0.8-1.1) H Activated Partial Thromboplast Time 33 SEC (24-38) Sodium Level 145 mmol/L (136-145) Potassium Level 3.8 mmol/L (3.5-5.1) Chloride Level 104 mmol/L (98-107) Carbon Dioxide Level 28 mmol/L (21-32) Anion Gap 13 (6-14) Blood Urea Nitrogen 25 mg/dL (7-20) H Creatinine 0.9 mg/dL (0.6-1.0) Estimated GFR (Cockcroft-Gault) 59.4 BUN/Creatinine Ratio 28 (6-20) H Glucose Level 125 mg/dL (70-99) H Calcium Level 9.1 mg/dL (8.5-10.1) Magnesium Level Pending Total Bilirubin Pending Aspartate Amino Transferase (AST) Pending Alanine Aminotransferase (ALT) Pending Alkaline Phosphatase Pending Total Protein Pending Albumin Pending Albumin/Globulin Ratio Pending Laboratory Tests 10/10/21 18:10 Laboratory Tests 10/10/21 18:10 Vital Signs: Vital Signs Date Time Temp Pulse Resp B/P (MAP) Pulse Ox O2 Delivery O2 Flow Rate FiO2 10/10/21 18:02 98.0 149 18 211/100 (137) Room Air 98.0 EKG: EKG: [] Radiology/Procedures: Radiology/Procedures: []PROCEDURE: CT LOWER EXTREMITY WO RIGHT Exam: CT right hip without contrast INDICATION: Right hip pain TECHNIQUE: Sequential axial images through the right hip obtained without IV contrast. Sagittal and coronal reformatted images were reconstructed from the axial data and reviewed. Exposure: One or more of the following in the visualized dose reduction techniques were utilized for this examination: 1. Automated exposure control 2. Adjustment of the MA and/or KV according to patient size 3. Use of iterative of reconstructive technique Comparisons: 10/10/2021 FINDINGS: Visualized intrapelvic structures are unremarkable. Dynamic hip screw at the right hip with intramedullary otto at the right hip. Diffuse osteopenia. No displaced fracture. Soft tissue of the right lower extremities unremarkable. IMPRESSION: Right hip fixation without displaced fracture identified. Electronically signed by: Luis Noriega MD (10/10/2021 7:22 PM) BABAK DICTATED and SIGNED BY: LUIS NORIEGA MD DATE: 10/10/21 [id number] PROCEDURE: HIP RIGHT 2V WITH PELVIS XR RIGHT HIP (WITH OR WITHOUT PELVIS) 2 VIEWS Clinical Indication: Reason: pain fell one week ago / Spl. Instructions: / History: Comparison: AP pelvis 09/15/2021. Findings: No acute displaced pelvic fracture is identified. There is arthropathy of the bilateral hips that is worse on the right. There is hip screw and intramedullary otto of the right femur. Degenerative spondylosis of the visualized lumbar spine. No acute fracture of the right femur. No hip dislocation. Arterial calcifications are noted. IMPRESSION: 1. No acute fracture. 2. Arthropathy of the hips, worse on the right. Electronically signed by: Galileo Sparks MD (10/10/2021 6:56 PM) KENDRAPHYLLIS DICTATED and SIGNED BY: GALILEO SPARKS MD DATE: 10/10/[id number] 0 PROCEDURE: PORTABLE CHEST 1V Exam: Chest one view INDICATION: Fall TECHNIQUE: Frontal view of the chest Comparisons: 05/31/2020 FINDINGS: Heart is mildly enlarged. Pulmonary vessels are within normal limits. The lung and pleural spaces are clear. IMPRESSION: No acute pulmonary process. Electronically signed by: Luis Noriega MD (10/10/2021 6:56 PM) BABAK DICTATED and SIGNED BY: LUIS NORIEGA MD DATE: 10/10/[id number] 0 Course & Med Decision Making: Course & Med Decision Making Pertinent Labs and Imaging studies reviewed. (See chart for details) This is a 86-year-old female patient presented to the ED today from a doctor's office after being sent to the ED for right hip fracture on x-ray that was done today at the doctor's office, patient fell a week ago. Patient is ambulatory. Right hip x-rays including pelvis were negative for any acute findings. CT of the right hip is negative for any acute findings. CBC CMP with no acute findings, UA positive for UTI, given Rocephin in the ED and discharged on cephalexin. Discharge to home follow-up with PCP next week Eboni Disclaimer: Eboni Disclaimer: This electronic medical record was generated, in whole or in part, using a voice recognition dictation system. Departure Departure Impression: Primary Impression: Fall Qualified Codes: W19.XXXA - Unspecified fall, initial encounter Additional Impressions: UTI (urinary tract infection) Qualified Codes: N39.0 - Urinary tract infection, site not specified Hip pain, right Disposition: ADMITTED INPATIENT Condition: STABLE Referrals: KD MALLOY MD (PCP) follow up in the course of this week Patient Instructions: Fall Prevention and Home Safety, Lyys-ob-Mgds, Hip Pain, Urinary Tract Infection Additional Instructions: You were seen for right hip pain, your right hip x-rays as well as CT of the right hip were negative for any acute findings, no fractures. Your urine was noted for UTI. Take the prescribed antibiotics until completed. Please ensure you take your night medicines as soon as you get home. Scripts Cephalexin (CEPHALEXIN) 500 Mg Tablet 1 TAB PO BID, #14 TAB Prov: YUE PEREZ APRN 10/10/21 YUE PEREZ APRN Oct 10, 2021 18:45
--- NOTE | 2021-10-10 18:58 | RAD ---
Exam: Chest one view INDICATION: Fall TECHNIQUE: Frontal view of the chest Comparisons: 05/31/2020 FINDINGS: Heart is mildly enlarged. Pulmonary vessels are within normal limits. The lung and pleural spaces are clear. IMPRESSION: No acute pulmonary process. Electronically signed by: Luis Dodson MD (10/10/2021 6:56 PM) BABAK
--- NOTE | 2021-10-10 18:58 | RAD ---
XR RIGHT HIP (WITH OR WITHOUT PELVIS) 2 VIEWS Clinical Indication: Reason: pain fell one week ago / Spl. Instructions: / History: Comparison: AP pelvis 09/15/2021. Findings: No acute displaced pelvic fracture is identified. There is arthropathy of the bilateral hips that is worse on the right. There is hip screw and intramedullary otto of the right femur. Degenerative spondy losis of the visualized lumbar spine. No acute fracture of the right femur. No hip dislocation. Arter ial calcifications are noted. IMPRESSION: 1. No acute fracture. 2. Arthropathy of the hips, worse on the right. Electronically signed by: Galileo Sparks MD (10/10/2021 6:56 PM) KENDRAPHYLLIS
[2021-10-10] MEDS ORDERED: fentaNYL PF VIAL 100 MCG/2 ML VIAL IVP ONE (19:15)
--- NOTE | 2021-10-10 19:24 | RAD ---
Exam: CT right hip without contrast INDICATION: Right hip pain TECHNIQUE: Sequential axial images through the right hip obtained without IV contrast. Sagittal and c oronal reformatted images were reconstructed from the axial data and reviewed. Exposure: One or more of the following in the visualized dose reduction techniques were utilized for this examination: 1. Automated exposure control 2. Adjustment of the MA and/or KV according to patient size 3. Use of iterative of reconstructive technique Comparisons: 10/10/2021 FINDINGS: Visualized intrapelvic structures are unremarkable. Dynamic hip screw at the right hip with intramedullary otto at the right hip. Diffuse osteopenia. No displaced fracture. Soft tissue of the right lower extremities unremarkable. IMPRESSION: Right hip fixation without displaced fracture identified. Electronically signed by: Luis Dodson MD (10/10/2021 7:22 PM) BABAK
[2021-10-10 20:47] LABS: BILIRUBIN,URINE NEGATIVE (NEG); CLARITY,URINE HAZY; COLOR,URINE YELLOW; NITRITE,URINE POSITIVE (NEG); PROTEIN,URINE NEGATIVE (NEG-TRACE); UROBILINOGEN,URINE 0.2 mg/dL (0.2 mg/dL)
[2021-10-10 20:49] LABS: BACTERIA,URINE MODERATE /HPF (0-FEW)
[2021-10-10] MEDS ORDERED: cefTRIAXone IV Push 1 GM VIAL. IVP ONE (21:30)
[2021-10-10 21:45] VITALS: BP 137/87
[2021-10-10] MEDS ORDERED: CEPH500T PO (21:45)
--- NOTE | 2021-10-12 07:53 | EKG ---
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
== END 2021-10-10 22:00 | disposition admitted as inpatient to this hospital (09) ==
LOC: ER 17:46
DX: M25.551 Pain in right hip (principal); N39.0 Urinary tract infection, site not specified; G89.11 Acute pain due to trauma; I10 Essential (primary) hypertension; Z90.710 Acquired absence of both cervix and uterus; W18.39XA Other fall on same level, initial encounter; Y93.89 Activity, other specified; Y92.89 Other specified places as the place of occurrence of the external cause; Y99.8 Other external cause status
CPT/HCPCS: 36415; 71045; 73502; 73700; 80053; 81001; 83735; 83880; 84484; 85025; 85610; 85730; 87077; 87086; 87186; 93005; 96374; 96375; 99284; J0696; J3010; 99285-25